=== PATIENT | female | born 1955 | race Caucasian/White ===

== ENCOUNTER → 2016-06-27 | Outpatient (CLI) | payer MEDICAID ==
--- NOTE | 2016-06-27 11:15 | ECHOS ---
DATE OF SERVICE: 06/27/2016 AGE: 60Y SEX: F HT: 65 WT: 180 lbs. Protocol Aris: X Others: Stress Echo Stage: III Dur. of Exercise: 7-1/2 minutes *Heart Rate Blood Pressure *Rest: 70 Rest: 163/85 * *Max. Achieved: 152 Maximum BP: 180/63 85% PMHR: 138 100% PMHR: 162 *METS: 9.1 INDICATIONS: Chest pain. MEDICATIONS: EKG revealed a normal sinus rhythm without significant ST-T changes. Patient walked on standard Aris protocol for 7-1/2 minutes, achieved a maximum heart rate of 152 beats, which is well above 85% of predicted maximal. She developed fatigue and shortness of breath, but did not have any anginal symptoms. EKG did not reveal any ST segment changes to indicate ischemia. By EKG criteria, this is a negative stress test with fair exercise capacity. Baseline echo images reveal normal wall motion and wall thickening of all segments. At peak exercise, there was good augmentation of left ventricular wall motion and wall thickening of all segments suggesting that there is no evidence of any stress-induced ischemia on this study. FINAL IMPRESSION: 1. Fair exercise capacity with a negative stress test by EKG criteria. 2. Normal stress echocardiogram.
== END | disposition home or self-care (01) ==
LOC: RADNMMAIN 09:26
PROVIDERS: ATTEND Family Medicine
DX: I20.9 Angina pectoris, unspecified (principal)
CPT/HCPCS: 93017; 93350

== ENCOUNTER → 2016-07-01 | Outpatient (CLI) | payer MEDICAID | END | disposition home or self-care (01) | LOC: LABWHC1 07:59 | PROVIDERS: ATTEND Allergy & Immunology | DX: L50.9 Urticaria, unspecified (principal) | CPT/HCPCS: 36415; 82784; 82785; 86376; 86800 ==

== ENCOUNTER → 2016-07-06 | Outpatient (CLI) | payer MEDICAID ==
[2016-07-26 11:45] LABS: Mis test requested (Blood) Anti IgE CD203
== END | disposition home or self-care (01) ==
LOC: LABWHC1 12:07
PROVIDERS: ATTEND Allergy & Immunology
DX: E06.3 Autoimmune thyroiditis (principal)
CPT/HCPCS: 36415; 84443

== ENCOUNTER → 2016-08-03 | Outpatient (CLI) | payer MEDICAID ==
--- NOTE | 2016-08-03 14:33 | MR ---
MR right hip HISTORY: Right hip pain Correlation to plain film second July 2016 Multiplanar multisequence imaging obtained through the pelvis with small [id number] images through the right hip Coronal T2-weighted images show suggestion of increased signal at the femoral head however this is no t correlated on additional imaging may be artifactual. Increased signal at the level of the acetabula r labrum is present, difficult to exclude a labral tear. No sizable joint effusions are present. Dege nerative disc changes are present at the lumbosacral junction loss of disc space, possible vacuum phe nomenon, marginal spurring. There is some fluid signal present at the level of the greater trochanter at the insertion site, difficult to exclude a partial tear, strain. Articular cartilage signal is th ought to be maintained. No significant hypertrophic change. IMPRESSION: Degenerative disc disease lumbosacral junction. Difficult to exclude a partial tear, stra in at the insertion of the gluteus tendon on the greater trochanter. Additional findings above.
== END | disposition home or self-care (01) ==
LOC: RADMRIMAIN 06:07
PROVIDERS: ATTEND Orthopaedic Surgery
DX: M25.551 Pain in right hip (principal)

== ENCOUNTER → 2016-08-31 | Outpatient (CLI) | payer MEDICAID ==
--- NOTE | 2016-08-31 07:52 | US ---
EXAMINATION TYPE: US thyroid st tissue head/neck DATE OF EXAM: 08/31/2016 7:14 AM COMPARISON: NONE CLINICAL HISTORY: E06.3 Autoimmune thyroiditis. GLAND SIZE: Right Lobe: 3.6 x 1.2 x 1.2 cm Overall Parenchyma: homogenous Left Lobe: 3.8 x 1.2 x 0.9 cm Overall Parenchyma: homogeneous Isthmus Thickness: 0.2 cm NODULES RIGHT: # of nodules measured on right: 0 LEFT: # of nodules measured on left: 0 ISTHMUS: # of nodules measured in the isthmus: 0 TECHNOLOGIST IMPRESSION: Bilateral neck scanned, no abnormal lymphadenopathy noted. Thyroid gland is small in size and homogeneous in echotexture without suspicious solid or cystic nodu les seen. IMPRESSION: Small size thyroid otherwise unremarkable study.
[2016-09-01 14:43] LABS: Gliadin AB IgA, Deaminated 7 UNITS (<20); Gliadin AB IgG, Deaminated 3 UNITS (<20)
[2016-09-05 10:14] LABS: Mis test requested (Blood) Celiac Genotyping
== END | disposition home or self-care (01) ==
LOC: RADUSWWP 06:41
PROVIDERS: ATTEND Allergy & Immunology
DX: E06.3 Autoimmune thyroiditis (principal)
CPT/HCPCS: 76536; 81376; 81383; 82784; 83516

== ENCOUNTER → 2016-11-09 | Outpatient (CLI) | payer MEDICAID | END | disposition home or self-care (01) | LOC: LABWHC1 06:38 | PROVIDERS: ATTEND Family Medicine | DX: E03.9 Hypothyroidism, unspecified (principal) | CPT/HCPCS: 36415; 84439; 84443 ==

== ENCOUNTER → 2017-03-15 | Outpatient (CLI) | payer MEDICAID | END | disposition home or self-care (01) | LOC: LABWHC1 06:44 | PROVIDERS: ATTEND Family Medicine | DX: E03.9 Hypothyroidism, unspecified (principal) | CPT/HCPCS: 36415; 84439; 84443 ==

== ENCOUNTER 2017-03-31 15:54 | Emergency (ER) | payer MEDICAID ==
--- NOTE | 2017-03-31 16:34 | ED ---
General Adult HPI - General Chief complaint: Shortness of Breath Stated complaint: SOB Time Seen by Provider: 03/31/17 16:06 Source: patient, RN notes reviewed Mode of arrival: wheelchair Limitations: no limitations - History of Present Illness Initial comments: 61-year-old female with no significant past medical history presents for evaluation of dyspnea. Patient states approximately 2 weeks ago she developed cough, this was dry nature. She was treated for pneumonia by her primary care physician. Cough improved, but dyspnea has not improved. She has had worsening symptoms over the past several days. Today her dyspnea significantly worsen. Denies chest pain. Denies lower extremity swelling. No recent travel. No fever, patient does state she had some chills and diaphoresis earlier in the week. Patient does have family history of coronary artery disease, she has no known history herself. Denies abdominal pain. Denies nausea vomiting or diarrhea. - Related Data Home Medications Medication Instructions Recorded Confirmed ALPRAZolam [Xanax] 0.5 mg PO DAILY PRN 03/31/17 03/31/17 Codeine Phosphate/Guaifenesin 5 ml PO Q6HR PRN 03/31/17 03/31/17 [Cheratussin AC Syrup] Levothyroxine Sodium [Synthroid] 150 mcg PO DAILY 03/31/17 03/31/17 Previous Rx's Medication Instructions Recorded Amoxicillin/Potassium Clav 1 tab PO Q12HR #14 tab 03/31/17 [Augmentin 875-125 Tablet] predniSONE 50 mg PO DAILY #5 tab 03/31/17 Allergies Allergy/AdvReac Type Severity Reaction Status Date / Time acetaminophen AdvReac SHORTNESS Verified 03/31/17 16:24 [From Darvocet-N] OF BREATHE hydrocodone AdvReac SHORTNESS Verified 03/31/17 16:24 OF BREATHE propoxyphene napsylate AdvReac SHORTNESS Verified 03/31/17 16:24 [From Darvocet-N] OF BREATHE Review of Systems ROS Statement: Those systems with pertinent positive or pertinent negative responses have been documented in the HPI. ROS Other: All systems not noted in ROS Statement are negative. Past Medical History Past Medical History: Thyroid Disorder Additional Past Medical History / Comment(s): mitral valve prolapse History of Any Multi-Drug Resistant Organisms: None Reported Past Surgical History: Appendectomy, Tubal Ligation Additional Past Surgical History / Comment(s): parotid gland tumor removed Past Psychological History: No Psychological Hx Reported Smoking Status: Never smoker Past Alcohol Use History: Occasional Past Drug Use History: None Reported General Exam Limitations: no limitations General appearance: alert, in no apparent distress Head exam: Present: atraumatic, normocephalic Eye exam: Present: normal appearance, PERRL ENT exam: Present: normal exam Neck exam: Present: normal inspection. Absent: tenderness, meningismus Respiratory exam: Present: normal lung sounds bilaterally. Absent: respiratory distress, wheezes, rales Cardiovascular Exam: Present: regular rate, normal rhythm GI/Abdominal exam: Present: soft. Absent: distended, tenderness Extremities exam: Present: normal inspection, normal capillary refill. Absent: pedal edema, calf tenderness Back exam: Present: normal inspection Neurological exam: Present: alert, oriented X3 Psychiatric exam: Present: normal affect, normal mood Skin exam: Present: warm, dry, intact. Absent: cyanosis, diaphoretic Course Vital Signs 03/31/17 03/31/17 03/31/17 15:56 17:00 18:07 Temperature 98.2 F Pulse Rate 88 75 71 Respiratory 24 16 16 Rate Blood Pressure 195/98 188/90 189/92 O2 Sat by Pulse 98 98 98 Oximetry 03/31/17 03/31/17 03/31/17 18:20 18:36 18:48 Temperature Pulse Rate 61 63 68 Respiratory Rate Blood Pressure 166/74 O2 Sat by Pulse Oximetry EKG Findings - EKG Comments: EKG Findings:: EKG shows normal sinus rhythm, ventricular rate 74, TX interval 146, QRS duration 74, QTC 457, T-wave flattening and inversion in lead 3, no ST segment elevation or depression Medical Decision Making - Lab Data Result diagrams: 03/31/17 17:01 03/31/17 17:01 Lab Results 03/31/17 03/31/17 03/31/17 Range/Units 17:01 17:01 17:01 WBC 9.9 (3.8-10.6) k/uL RBC 4.64 (3.80-5.40) m/uL Hgb 13.6 (11.4-16.0) gm/dL Hct 40.2 (34.0-46.0) % MCV 86.6 (80.0-100.0) fL MCH 29.3 (25.0-35.0) pg MCHC 33.9 (31.0-37.0) g/dL RDW 12.9 (11.5-15.5) % Plt Count 382 (150-450) k/uL Neutrophils % 61 % Lymphocytes % 26 % Monocytes % 7 % Eosinophils % 3 % Basophils % 1 % Neutrophils # 6.0 (1.3-7.7) k/uL Lymphocytes # 2.6 (1.0-4.8) k/uL Monocytes # 0.7 (0-1.0) k/uL Eosinophils # 0.3 (0-0.7) k/uL Basophils # 0.1 (0-0.2) k/uL PT (9.0-12.0) sec INR (<1.2) APTT (22.0-30.0) sec D-Dimer (<0.60) mg/L FEU Sodium 140 (137-145) mmol/L Potassium 4.2 (3.5-5.1) mmol/L Chloride 105 (98-107) mmol/L Carbon Dioxide 21 L (22-30) mmol/L Anion Gap 14 mmol/L BUN 19 H (7-17) mg/dL Creatinine 1.07 H (0.52-1.04) mg/dL Est GFR (MDRD) Af Amer >60 (>60 ml/min/1.73 sqM) Est GFR (MDRD) Non-Af 52 (>60 ml/min/1.73 sqM) Glucose 96 (74-99) mg/dL Calcium 9.1 (8.4-10.2) mg/dL Magnesium 1.8 (1.6-2.3) mg/dL Total Bilirubin 0.2 (0.2-1.3) mg/dL AST 19 (14-36) U/L ALT 26 (9-52) U/L Alkaline Phosphatase 101 (38-126) U/L Total Creatine Kinase 51 (30-135) U/L CK-MB (CK-2) 1.0 (0.0-2.4) ng/mL CK-MB (CK-2) Rel Index 2.0 Troponin I <0.012 (0.000-0.034) ng/mL NT-Pro-B Natriuret Pep pg/mL Total Protein 6.6 (6.3-8.2) g/dL Albumin 3.8 (3.5-5.0) g/dL 03/31/17 03/31/17 Range/Units 17:01 17:01 WBC (3.8-10.6) k/uL RBC (3.80-5.40) m/uL Hgb (11.4-16.0) gm/dL Hct (34.0-46.0) % MCV (80.0-100.0) fL MCH (25.0-35.0) pg MCHC (31.0-37.0) g/dL RDW (11.5-15.5) % Plt Count (150-450) k/uL Neutrophils % % Lymphocytes % % Monocytes % % Eosinophils % % Basophils % % Neutrophils # (1.3-7.7) k/uL Lymphocytes # (1.0-4.8) k/uL Monocytes # (0-1.0) k/uL Eosinophils # (0-0.7) k/uL Basophils # (0-0.2) k/uL PT 9.8 (9.0-12.0) sec INR 1.0 (<1.2) APTT 22.3 (22.0-30.0) sec D-Dimer 0.30 (<0.60) mg/L FEU Sodium (137-145) mmol/L Potassium (3.5-5.1) mmol/L Chloride (98-107) mmol/L Carbon Dioxide (22-30) mmol/L Anion Gap mmol/L BUN (7-17) mg/dL Creatinine (0.52-1.04) mg/dL Est GFR (MDRD) Af Amer (>60 ml/min/1.73 sqM) Est GFR (MDRD) Non-Af (>60 ml/min/1.73 sqM) Glucose (74-99) mg/dL Calcium (8.4-10.2) mg/dL Magnesium (1.6-2.3) mg/dL Total Bilirubin (0.2-1.3) mg/dL AST (14-36) U/L ALT (9-52) U/L Alkaline Phosphatase (38-126) U/L Total Creatine Kinase (30-135) U/L CK-MB (CK-2) (0.0-2.4) ng/mL CK-MB (CK-2) Rel Index Troponin I (0.000-0.034) ng/mL NT-Pro-B Natriuret Pep 209 pg/mL Total Protein (6.3-8.2) g/dL Albumin (3.5-5.0) g/dL Disposition Clinical Impression: Acute bronchitis Disposition: HOME SELF-CARE Condition: Good Instructions: Acute Bronchitis (ED) Prescriptions: Amoxicillin/Potassium Clav [Augmentin 875-125 Tablet] 1 tab PO Q12HR #14 tab predniSONE 50 mg PO DAILY #5 tab Referrals: Ashley Vargas MD [Primary Care Provider] - 1-2 days
[2017-03-31 17:20] LABS: Basophils # (A) 0.1 k/uL (0-0.2); Basophils % (A) 1 %; CH 29.2; CHCM 33.9; Eosinophils # (A) 0.3 k/uL (0-0.7); Eosinophils % (A) 3 %; HCT 40.2 % (34.0-46.0); HDW 2.51; HGB 13.6 gm/dL (11.4-16.0); Luc # (Auto) 0.34; Luc % (Auto) 3; Lymphocytes # (A) 2.6 k/uL (1.0-4.8); Lymphocytes % (A) 26 %; MCH 29.3 pg (25.0-35.0); MCHC 33.9 g/dL (31.0-37.0); MCV 86.6 fL (80.0-100.0); Mean Platelet Volume 6.7; Monocytes # (A) 0.7 k/uL (0-1.0); Monocytes % (A) 7 %; Neutrophils % (A) 61 %; RBC 4.64 m/uL (3.80-5.40); RDW 12.9 % (11.5-15.5); WBC 9.9 k/uL (3.8-10.6); WBC (Perox) 9.95
[2017-03-31 17:31] LABS: ALT 26 U/L (9-52); AST 19 U/L (14-36); Alkaline Phosphatase 101 U/L (38-126); Anion Gap 14 mmol/L; Blood Urea Nitrogen 19 mg/dL (7-17); Calcium 9.1 mg/dL (8.4-10.2); Carbon Dioxide 21 mmol/L (22-30); Chloride 105 mmol/L (98-107); Glucose 96 mg/dL (74-99); Magnesium 1.8 mg/dL (1.6-2.3); Non-African American GFR(MDRD) 52 (>60 ml/min/1.73 sqM); Potassium 4.2 mmol/L (3.5-5.1); Sodium 140 mmol/L (137-145); Total Bilirubin 0.2 mg/dL (0.2-1.3); Total Protein 6.6 g/dL (6.3-8.2)
--- NOTE | 2017-03-31 17:37 | XR ---
EXAMINATION TYPE: XR chest 2V DATE OF EXAM: 03/31/2017 COMPARISON: None HISTORY: 61-year-old female difficulty breathing, shortness of breath for 10 days TECHNIQUE: Frontal and lateral views FINDINGS: Heart is normal size atherosclerotic arch calcifications. Mild interstitial prominence of a chronic a ppearance. No consolidation or pleural effusion. IMPRESSION: Chronic appearing changes, possible bronchitis or chronic asthma. Otherwise, no acute process seen.
[2017-03-31 17:43] LABS: Partial Thromboplastin Time 22.3 sec (22.0-30.0); Prothrombin Time 9.8 sec (9.0-12.0)
[2017-03-31] MEDS ORDERED: SODIUM CHLORIDE 0.9% 1,000 ML IV SCH (17:45)
[2017-03-31 17:46] LABS: Creatine Kinase 51 U/L (30-135)
[2017-03-31] MEDS ORDERED: IPRATROPIUM-ALBUTEROL 3 ML NEB INHALATION STA (17:55)
[2017-03-31] MEDS ORDERED: DEXAMETHASONE SOD PHOSPHATE 10 MG/ML 1 ML VIAL IV STA (17:55)
[2017-03-31 17:58] LABS: Troponin I <0.012 ng/mL (0.000-0.034)
[2017-03-31 19:24] VITALS: BP 180/80; PULSE 84; RESP 18; TEMP 98.1
== END 2017-03-31 19:22 | disposition home or self-care (01) ==
LOC: EC 15:54
DX: J20.9 Acute bronchitis, unspecified (principal); E07.9 Disorder of thyroid, unspecified; Z79.899 Other long term (current) drug therapy; Z88.5 Allergy status to narcotic agent
CPT/HCPCS: 99285 ×2; 96374 ×2; 36415; 94640; 93005; 85379; 83880; 80053; 82550; 82553; 83735; 84484; 85025; 85610; 85730; 71020; J1100

== ENCOUNTER → 2017-06-20 | Outpatient (CLI) | payer MEDICAID ==
--- NOTE | 2017-06-21 09:35 | XR ---
EXAMINATION TYPE: XR finger RT DATE OF EXAM: 06/20/2017 COMPARISON: NONE HISTORY: Pain TECHNIQUE: Three views are submitted. FINDINGS: The osseous structures are intact. The joint spaces are preserved and there is no acute fracture or dislocation. IMPRESSION: 1. No definite acute fracture or dislocation if symptoms persist, follow-up study in 7 to 10 days wo uld be suggested
== END | disposition home or self-care (01) ==
LOC: RADXRMAIN 15:54
PROVIDERS: ATTEND Family Medicine
DX: M79.644 Pain in right finger(s) (principal)

== ENCOUNTER → 2017-11-30 | Outpatient (CLI) | payer MEDICAID ==
--- NOTE | 2017-12-04 08:42 | MM ---
Reason for exam: screening (asymptomatic). Last mammogram was performed 6 years and 3 months ago. History: Patient is postmenopausal. Family history of breast cancer in sister at age 48. Physical Findings: A clinical breast exam by your physician is recommended on an annual basis and results should be correlated with mammographic findings. MG 3D Screening Mammo W/Cad Bilateral CC and MLO view(s) were taken. Prior study comparison: August 31, 2011, bilateral digital screening mammo w/CAD. September 24, 2002, mammogram, performed at [facility]. There are scattered fibroglandular densities. No significant changes when compared with prior studies. ASSESSMENT: Negative, BI-RAD 1 RECOMMENDATION: Routine screening mammogram of both breasts in 1 year.
== END | disposition home or self-care (01) ==
LOC: RADMAMWWP 09:14
PROVIDERS: ATTEND Family Medicine
DX: Z12.31 Encounter for screening mammogram for malignant neoplasm of breast (principal)
CPT/HCPCS: 77063; 77067

== ENCOUNTER → 2018-06-28 | Outpatient (CLI) | payer MEDICAID ==
--- NOTE | 2018-06-28 08:38 | CT ---
EXAMINATION TYPE: CT sinus wo con DATE OF EXAM: 06/28/2018 COMPARISON: None HISTORY: Chronic Sinusitis CT DLP: 234 mGycm. Automated Exposure Control for Dose Reduction was Utilized. TECHNIQUE: CT scan of the sinuses is performed without contrast, axial images are obtained, coronal r eformatted images are also reviewed. FINDINGS: There is a slight nasal septal deviation there is very minimal mucosal thickening involving the maxillary sinus on the left. Mild to moderate mucosal thickening involving ethmoid air cells. Fr ontal sinus and sphenoid sinus demonstrate no significant mucosal thickening. There are no air-fluid levels. Right ostiomeatal complex is patent. Right ostiomeatal complex is occluded. Visualized portion of mastoid air cells show no abnormal opacification. The globes are intact bilate rally. IMPRESSION: 1. [id number] chronic appearing sinusitis and ethmoid air cells with occlusion of the left osti omeatal complex. 2. Minimal mucosal thickening involving the left maxillary sinus.
== END | disposition home or self-care (01) ==
LOC: RADCTMAIN 06:55
PROVIDERS: ATTEND Otolaryngology
DX: J32.2 Chronic ethmoidal sinusitis (principal); J34.89 Other specified disorders of nose and nasal sinuses
CPT/HCPCS: 70486

== ENCOUNTER 2018-09-27 09:10 | Day surgery (SDC) | payer MEDICAID ==
[2018-09-25 10:56] VITALS: BMI 32.4
[~2018-09-27 09:10] MED LIST: LACTATED RINGERS 1,000 ML IV SCH
[2018-09-27 09:43] VITALS: TEMP 97.7
[2018-09-27] MEDS ORDERED: LIDOCAINE 1% 20 ML VIAL (10MG/ML) FOR IV START INTRADERMA ONE (09:50)
[2018-09-27] MEDS ORDERED: LIDOCAINE 1% INJ 10MG/ML (20 ML MDV) ONE (10:45)
[2018-09-27] MEDS ORDERED: PROPOFOL 10 MG/ML 20 ML VIAL IV ONE (10:45)
--- NOTE | 2018-09-27 11:09 | P.PCN ---
Date of Procedure: 09/27/18 Procedure(s) Performed: Brief history: Patient is a pleasant 63-year-old white female, scheduled for an elective upper endoscopy as well as colonoscopy as a part of evaluation of GERD and screening for colorectal neoplasia. Procedure performed: Esophagogastroduodenoscopy Colonoscopy with snare polypectomy Preoperative diagnosis: GERD/ Screening for colon cancer Anesthesia: MAC Procedure: After informed consent was obtained from the patient was brought into the endoscopy unit and IV sedation was administered by anesthesia under continuous monitoring. Initially upper endoscopy was done. The Olympus GF 160 video endoscope was inserted inserted into the mouth and esophagus intubated without any difficulty and was gradually advanced into the stomach and duodenum and carefully examined. The bulb and second part of the duodenum appeared normal. The scope was then withdrawn into the stomach adequately insufflated with air and upon careful examination the antrum and body, cardia and fundus appeared normal. The scope was then withdrawn into the esophagus. The GE junction was located at 39 cm to the incisors. Small hiatal hernia noted. It appeared regular with no erythema erosions or ulcerations. Rest of the esophagus appeared normal. Patient tolerated the procedure well. At this time the patient continued to remain sedation. Initial digital rectal examination was normal. Olympus CF 160 video colonoscope was then inserted into the rectum and gradually advanced to the cecum without any difficulty. Careful examination was performed as the scope was gradually being withdrawn. The prep was excellent. The cecum appeared normal. In the ascending colon there was a 1 cm flat polyp that was removed by snare polypectomy. Rest of theascending colon, transverse colon, descending colon, sigmoid colon and rectum appeared normal. Retroflexion was performed in the rectum and no lesions were noted. Patient tolerated the procedure well. Impression: 1. Upper endoscopy revealed small hiatal hernia but no evidence of esophagitis or peptic ulcer disease 2. Colonoscopy revealed 1 cm flat ascending colon polyp status post polypectomy Recommendations: Findings of this examination were discussed with the patient as well as her family. She was advised to follow with the biopsy results. If the biopsy shows adenoma she can have a repeat colonoscopy in 3-5 years. Because of the GERD symptoms she was advised to continue with Nexium daily and follow antireflux measures.
[2018-09-27 11:13] VITALS: RESP 18
[2018-09-27 11:28] VITALS: BP 131/78; PULSE 65
== END 2018-09-27 11:47 | disposition home or self-care (01) ==
LOC: ORWHC2ENDO 09:10
PROVIDERS: ATTEND Internal Medicine Gastroenterology
DX: Z12.11 Encounter for screening for malignant neoplasm of colon (principal); K21.9 Gastro-esophageal reflux disease without esophagitis; D12.2 Benign neoplasm of ascending colon; K44.9 Diaphragmatic hernia without obstruction or gangrene; Z88.5 Allergy status to narcotic agent; Z88.8 Allergy status to other drugs, medicaments and biological substances; Z79.890 Hormone replacement therapy; Z79.899 Other long term (current) drug therapy
CPT/HCPCS: 88305; 45385; 43235; J2001; J2704

== ENCOUNTER → 2018-12-30 | Outpatient (CLI) | payer MEDICAID ==
[2018-12-30 12:25] LABS: African American GFR (CKD) 92.2 (60.0-200.0); Albumin 4.2 g/dL (3.80-4.90); Albumin/Globulin Ratio 1.83 (1.60-3.17); Anion Gap 5.8 mmol/L (4.00-12.00); BUN/Creat Ratio 26.25 Ratio (12.00-20.00); Calcium 9.1 mg/dL (8.7-10.3); Carbon Dioxide 25.2 mmol/L (21.6-31.8); Globulin 2.3 g/dL (1.6-3.3); LDL Cholesterol,Calculated 104.6 mg/dL (0.0-131.0); Potassium 4.6 mmol/L (3.5-5.5); Total Bilirubin 0.3 mg/dL (0.3-1.2); Total Protein 6.5 g/dL (6.2-8.2); VLDL Calculation 23.4 mg/dL (5.00-40.00)
== END | disposition home or self-care (01) ==
LOC: LABWHC1 06:36
PROVIDERS: ATTEND Family Medicine
DX: Z00.00 Encounter for general adult medical examination without abnormal findings (principal)
CPT/HCPCS: 36415; 80053; 80061; 84439; 84443

== ENCOUNTER 2019-08-26 15:09 | Emergency (ER) | payer MEDICAID ==
[2019-08-26] MEDS ORDERED: IBUPROFEN 800 MG TAB PO STA (15:31)
[2019-08-26] MEDS ORDERED: ACETAMINOPHEN TAB 500 MG TAB PO STA (15:32)
[2019-08-26] MEDS ORDERED: SODIUM CHLORIDE 0.9% 1,000 ML IV ONE (15:32)
--- NOTE | 2019-08-26 15:34 | ED ---
General Adult HPI - General Chief complaint: Headache Stated complaint: head & neck pain/trouble swallowing Time Seen by Provider: 08/26/19 15:15 Source: patient, RN notes reviewed, old records reviewed Mode of arrival: ambulatory Limitations: no limitations - History of Present Illness Initial comments: This is a 64-year-old female presents emergency department stating that she started with a fever 90s ago. Patient states last Sunday she was told she had influenza but she was beyond the number of days to be treated. Patient states she continues to have a fever over the weekend complains of some sore throat cough with no sputum production and a mild headache. Patient states she also has bilateral neck pain in the sternocleidomastoid muscle region. Patient denies any dysuria hematuria urinary frequency. Patient denies any abdominal pain. Patient denies any nausea vomiting. Patient denies any rashes or areas of redness. Patient denies any stiff neck. - Related Data Home Medications Medication Instructions Recorded Confirmed Levothyroxine Sodium [Synthroid] 150 mcg PO DAILY 03/31/17 09/27/18 Cannabidiol (Cbd) Extract 0 mg PO DAILY PRN 09/25/18 09/27/18 [Epidiolex] Ibuprofen [Advil] 200 mg PO Q6HR PRN 09/25/18 09/27/18 L.acidoph,Paracasei, B.lactis 1 each PO DAILY 09/25/18 09/27/18 [Probiotic] Magnesium 200 mg PO DAILY 09/25/18 09/27/18 Previous Rx's Medication Instructions Recorded Amoxicillin 500 mg PO Q8H #30 capsule 08/26/19 predniSONE [Deltasone] 40 mg PO DAILY #8 tab 08/26/19 Allergies Allergy/AdvReac Type Severity Reaction Status Date / Time hydrocodone AdvReac SHORTNESS Verified 08/26/19 15:19 OF BREATHE propoxyphene napsylate AdvReac SHORTNESS Verified 08/26/19 15:19 [From Valdo] OF BREATHE Review of Systems ROS Statement: Those systems with pertinent positive or pertinent negative responses have been documented in the HPI. ROS Other: All systems not noted in ROS Statement are negative. Past Medical History Past Medical History: GERD/Reflux, Mitral Valve Prolapse (MVP), Pneumonia, Thyroid Disorder Additional Past Medical History / Comment(s): mitral valve prolapse, hx. colon polyps, recent change in bowel habits, intermittent RLQ pain History of Any Multi-Drug Resistant Organisms: None Reported Past Surgical History: Appendectomy, Tubal Ligation Additional Past Surgical History / Comment(s): parotid gland tumor removed, colonoscopies Past Anesthesia/Blood Transfusion Reactions: No Reported Reaction, Family History of Problems w/ Anesthesia Additional Past Anesthesia/Blood Transfusion Reaction / Comment(s): 16 y.o. son had some chest pain that was attributed to anesthesia per pt. Past Psychological History: No Psychological Hx Reported Smoking Status: Never smoker Past Alcohol Use History: None Reported Past Drug Use History: None Reported - Past Family History Mother Sister(s) Family Medical History: Cancer Additional Family Medical History / Comment(s): mom colon, sister brain & breast cancer General Exam - General Exam Comments Initial Comments: GENERAL: Patient is well-developed and well-nourished. Patient is nontoxic and well-hy drated and is in no acute distress. ENT: Neck is soft and supple. No significant lymphadenopathy is noted. Oropharynx is clear. Moist mucous membranes. Neck has full range of motion without elici ting any pain. There is no thyroid enlargement and no masses were felt. EYES: The sclera were anicteric and conjunctiva were pink and moist. Extraocular movements were intact and pupils were equal round and reactive to light. Eyelids were unremarkable. PULMONARY: Unlabored respirations. Good breath sounds bilaterally. No audible rales rhonchi or wheezing was noted. CARDIOVASCULAR: There is a regular rate and rhythm without any murmurs gallops or rubs. Femoral pulses are equal bilaterally ABDOMEN: Soft and nontender with normal bowel sounds. No palpable organomegaly was noted. There is no palpable pulsatile mass. SKIN: Skin is clear with no lesions or rashes and otherwise unremarkable. NEUROLOGIC: Patient is alert and oriented x3. Cranial nerves II through XII are grossly int act. Motor and sensory are also intact. Normal speech, volume and content. Symmetrical smile. Cerebellar exam grossly intact. MUSCULOSKELETAL: Normal extremities with adequate strength and full range of motion. No lower extremity swelling or edema. No calf tenderness. LYMPHATICS: No significant lymphadenopathy is noted PSYCHIATRIC: Normal psychiatric evaluation. Normal interpersonal interactions appears functionally intact in deals appropriately with others. No signs of depression. No signs of anxiety. No delusions. No hallucinations. Limitations: no limitations Course Vital Signs 08/26/19 08/26/19 08/26/19 15:17 15:36 16:13 Temperature 100.2 F H 101.7 F H Pulse Rate 107 H Respiratory 22 22 Rate Blood Pressure 176/75 O2 Sat by Pulse 95 Oximetry 08/26/19 17:25 Temperature 100.2 F H Pulse Rate 87 Respiratory 16 Rate Blood Pressure 131/80 O2 Sat by Pulse 94 L Oximetry Medical Decision Making - Medical Decision Making Chest x-ray shows no acute abnormality. I went back into the room to reevaluate the patient she was feeling considerably better and no longer had any neck discomfort or headache. Patient received prednisone and amoxicillin emergency department. - Lab Data Result diagrams: 08/26/19 16:13 08/26/19 16:13 Lab Results 08/26/19 08/26/19 08/26/19 Range/Units 16:13 16:13 16:13 WBC 15.9 H (3.8-10.6) k/uL RBC 4.67 (3.80-5.40) m/uL Hgb 13.2 (11.4-16.0) gm/dL Hct 40.0 (34.0-46.0) % MCV 85.7 (80.0-100.0) fL MCH 28.3 (25.0-35.0) pg MCHC 33.0 (31.0-37.0) g/dL RDW 13.5 (11.5-15.5) % Plt Count 341 (150-450) k/uL Neutrophils % 84 % Lymphocytes % 8 % Monocytes % 5 % Eosinophils % 1 % Basophils % 0 % Neutrophils # 13.4 H (1.3-7.7) k/uL Lymphocytes # 1.3 (1.0-4.8) k/uL Monocytes # 0.8 (0-1.0) k/uL Eosinophils # 0.1 (0-0.7) k/uL Basophils # 0.1 (0-0.2) k/uL Sodium 134 L (137-145) mmol/L Potassium 4.1 (3.5-5.1) mmol/L Chloride 103 (98-107) mmol/L Carbon Dioxide 24 (22-30) mmol/L Anion Gap 7 mmol/L BUN 14 (7-17) mg/dL Creatinine 0.73 (0.52-1.04) mg/dL Est GFR (CKD-EPI)AfAm >90 (>60 ml/min/1.73 sqM) Est GFR (CKD-EPI)NonAf 89 (>60 ml/min/1.73 sqM) Glucose 93 (74-99) mg/dL Plasma Lactic Acid [place] (0.7-2.0) mmol/L Calcium 8.7 (8.4-10.2) mg/dL Total Bilirubin 0.7 (0.2-1.3) mg/dL AST 29 (14-36) U/L ALT 26 (4-34) U/L Alkaline Phosphatase 89 (38-126) U/L Total Protein 6.9 (6.3-8.2) g/dL Albumin 4.1 (3.5-5.0) g/dL Urine Color Yellow Urine Appearance Clear (Clear) Urine pH 7.5 (5.0-8.0) Ur Specific [place] 1.018 (1.001-1.035) Urine Protein Negative (Negative) Urine Glucose (UA) Negative (Negative) Urine Ketones Negative (Negative) Urine Blood Negative (Negative) Urine Nitrite Negative (Negative) Urine Bilirubin Negative (Negative) Urine Urobilinogen <2.0 (<2.0) mg/dL Ur Leukocyte Esterase Negative (Negative) Heterophile Antibody (Negative) Group A Strep Rapid (Negative) 08/26/19 08/26/19 08/26/19 Range/Units 16:13 16:13 17:23 WBC (3.8-10.6) k/uL RBC (3.80-5.40) m/uL Hgb (11.4-16.0) gm/dL Hct (34.0-46.0) % MCV (80.0-100.0) fL MCH (25.0-35.0) pg MCHC (31.0-37.0) g/dL RDW (11.5-15.5) % Plt Count (150-450) k/uL Neutrophils % % Lymphocytes % % Monocytes % % Eosinophils % % Basophils % % Neutrophils # (1.3-7.7) k/uL Lymphocytes # (1.0-4.8) k/uL Monocytes # (0-1.0) k/uL Eosinophils # (0-0.7) k/uL Basophils # (0-0.2) k/uL Sodium (137-145) mmol/L Potassium (3.5-5.1) mmol/L Chloride (98-107) mmol/L Carbon Dioxide (22-30) mmol/L Anion Gap mmol/L BUN (7-17) mg/dL Creatinine (0.52-1.04) mg/dL Est GFR (CKD-EPI)AfAm (>60 ml/min/1.73 sqM) Est GFR (CKD-EPI)NonAf (>60 ml/min/1.73 sqM) Glucose (74-99) mg/dL Plasma Lactic Acid [place] 0.9 (0.7-2.0) mmol/L Calcium (8.4-10.2) mg/dL Total Bilirubin (0.2-1.3) mg/dL AST (14-36) U/L ALT (4-34) U/L Alkaline Phosphatase (38-126) U/L Total Protein (6.3-8.2) g/dL Albumin (3.5-5.0) g/dL Urine Color Urine Appearance (Clear) Urine pH (5.0-8.0) Ur Specific [place] (1.001-1.035) Urine Protein (Negative) Urine Glucose (UA) (Negative) Urine Ketones (Negative) Urine Blood (Negative) Urine Nitrite (Negative) Urine Bilirubin (Negative) Urine Urobilinogen (<2.0) mg/dL Ur Leukocyte Esterase (Negative) Heterophile Antibody Negative (Negative) Group A Strep Rapid Positive A (Negative) Disposition Clinical Impression: Strep pharyngitis Disposition: HOME SELF-CARE Condition: Good Instructions (If sedation given, give patient instructions): Strep Throat (ED) Prescriptions: Amoxicillin 500 mg PO Q8H #30 capsule predniSONE [Deltasone] 40 mg PO DAILY #8 tab Is patient prescribed a controlled substance at d/c from ED?: No Referrals: Ashley Vargas MD [Primary Care Provider] - 1-2 days Time of Disposition: 17:42
[2019-08-26 16:27] LABS: Basophils # (A) 0.1 k/uL (0-0.2); Basophils % (A) 0 %; Eosinophils # (A) 0.1 k/uL (0-0.7); Eosinophils % (A) 1 %; HGB 13.2 gm/dL (11.4-16.0); Lymphocytes # (A) 1.3 k/uL (1.0-4.8); Lymphocytes % (A) 8 %; MCH 28.3 pg (25.0-35.0); MCV 85.7 fL (80.0-100.0); Mean Platelet Volume 7.3; Monocytes # (A) 0.8 k/uL (0-1.0); Monocytes % (A) 5 %; Neutrophils # (A) 13.4 k/uL (1.3-7.7); Neutrophils % (A) 84 %; Platelet Count 341 k/uL (150-450); RBC 4.67 m/uL (3.80-5.40); RDW 13.5 % (11.5-15.5); WBC 15.9 k/uL (3.8-10.6)
[2019-08-26 16:35] LABS: Appearance,Urine Clear (Clear); Bilirubin,Urine Negative (Negative); Blood,Urine Negative (Negative); Color,Urine Yellow; Glucose,Urine (UA) Negative (Negative); Ketones,Urine Negative (Negative); Leukocyte Esterase,Urine Negative (Negative); Nitrite,Urine Negative (Negative); PH, Urine 7.5 (5.0-8.0); Protein,Urine Negative (Negative); Specific Gravity,Urine 1.018 (1.001-1.035); Urobilinogen,Urine <2.0 mg/dL (<2.0)
[2019-08-26 16:47] LABS: ALT 26 U/L (4-34); AST 29 U/L (14-36); African American GFR (CKD) >90 (>60 ml/min/1.73 sqM); Albumin 4.1 g/dL (3.5-5.0); Alkaline Phosphatase 89 U/L (38-126); Anion Gap 7 mmol/L; Blood Urea Nitrogen 14 mg/dL (7-17); Calcium 8.7 mg/dL (8.4-10.2); Carbon Dioxide 24 mmol/L (22-30); Chloride 103 mmol/L (98-107); Glucose 93 mg/dL (74-99); Non-African American GFR(CKD) 89 (>60 ml/min/1.73 sqM); Potassium 4.1 mmol/L (3.5-5.1); Sodium 134 mmol/L (137-145); Total Bilirubin 0.7 mg/dL (0.2-1.3); Total Protein 6.9 g/dL (6.3-8.2)
--- NOTE | 2019-08-26 16:58 | XR ---
EXAMINATION TYPE: XR chest 2V DATE OF EXAM: 08/26/2019 COMPARISON: 03/31/2017 HISTORY: Short of breath TECHNIQUE: FINDINGS: Heart and mediastinum are normal. Lungs are clear. Diaphragm is normal. Bony thorax appears normal. There is minimal atheromatous change in the thoracic aorta. IMPRESSION: No cardiopulmonary disease. No change.
[2019-08-26 17:26] VITALS: BP 131/80; PULSE 87; RESP 16; TEMP 100.2
[2019-08-26] MEDS ORDERED: AMOXICILLIN 875 MG TAB PO STA (17:43)
[2019-08-26] MEDS ORDERED: predniSONE 50 MG TAB PO STA (17:43)
== END 2019-08-26 18:00 | disposition home or self-care (01) ==
LOC: EC 15:09
DX: J02.0 Streptococcal pharyngitis (principal); E07.9 Disorder of thyroid, unspecified; Z79.890 Hormone replacement therapy; Z88.5 Allergy status to narcotic agent; Z88.8 Allergy status to other drugs, medicaments and biological substances
CPT/HCPCS: 36415; 80053; 83605; 85025; 86308; 81003; 87040; 87430; 71046; 96360; 99284; J7512

== ENCOUNTER → 2019-11-24 | Outpatient (CLI) | payer MEDICAID | END | disposition home or self-care (01) | LOC: LABWHC1 06:55 | PROVIDERS: ATTEND Pediatrics Pediatric Infectious Diseases | DX: Z11.59 Encounter for screening for other viral diseases (principal) ==

== ENCOUNTER → 2019-11-26 | Outpatient (CLI) | payer MEDICAID | END | disposition home or self-care (01) | LOC: LABWHC1 08:20 | PROVIDERS: ATTEND Pediatrics Pediatric Infectious Diseases | DX: Z11.59 Encounter for screening for other viral diseases (principal) ==

== ENCOUNTER 2020-01-06 13:49 | Observation (INO) | payer MEDICAID ==
[2020-01-06] MEDS ORDERED: ASPIRIN 81 MG PO STA (14:42)
[2020-01-06] MEDS ORDERED: NITROGLYCERIN OINT 1 INCH/GM PACKET TOPICAL STA (14:42)
[2020-01-06] MEDS ORDERED: HEPARIN SODIUM,PORCINE 5,000 UNIT/ML 1 ML VIAL IV ONE (14:53)
--- NOTE | 2020-01-06 15:01 | ED ---
General Adult HPI - General Chief complaint: Chest Pain Stated complaint: Chest Pain Time Seen by Provider: 01/06/20 13:50 Source: patient, RN notes reviewed, old records reviewed Mode of arrival: wheelchair Limitations: no limitations - History of Present Illness Initial comments: This is a 64-year-old female presents emergency Department with a past medical history significant for high blood pressure. Patient states she also has a very strong family history she has 6 siblings all of which have had heart disease and she had a father with a heart attack at 42 and at 55 over masses are detected. Patient states today at work she had chest pain on the left side which radiated around to her scapula and down her left arm she became somewhat short of breath and it lasts approximately 5 minutes. Patient states after that she became very diaphoretic and eventually that subsided. Patient denied any recent fever chills or cough per patient denies any symptoms currently. Patient denies headache patient denies numbness weakness. Patient denies any abdominal pain patient has nausea vomiting diarrhea. - Related Data Home Medications Medication Instructions Recorded Confirmed Levothyroxine Sodium [Synthroid] 150 mcg PO DAILY 03/31/17 01/06/20 Ibuprofen [Advil] 200 - 400 mg PO Q6HR PRN 09/25/18 01/06/20 Magnesium 200 mg PO DAILY 09/25/18 01/06/20 ALPRAZolam [Xanax] 0.25 mg PO HS PRN 01/06/20 01/06/20 Allergies Allergy/AdvReac Type Severity Reaction Status Date / Time hydrocodone AdvReac SHORTNESS Verified 01/06/20 14:49 OF BREATHE propoxyphene napsylate AdvReac SHORTNESS Verified 01/06/20 14:49 [From [facility]] OF BREATHE Review of Systems ROS Statement: Those systems with pertinent positive or pertinent negative responses have been documented in the HPI. ROS Other: All systems not noted in ROS Statement are negative. Past Medical History Past Medical History: GERD/Reflux, Mitral Valve Prolapse (MVP), Pneumonia, Thyroid Disorder Additional Past Medical History / Comment(s): mitral valve prolapse, hx. colon polyps, recent change in bowel habits, intermittent RLQ pain History of Any Multi-Drug Resistant Organisms: None Reported Past Surgical History: Appendectomy, Tubal Ligation Additional Past Surgical History / Comment(s): parotid gland tumor removed, colonoscopies Past Anesthesia/Blood Transfusion Reactions: No Reported Reaction, Family History of Problems w/ Anesthesia Additional Past Anesthesia/Blood Transfusion Reaction / Comment(s): 16 y.o. son had some chest pain that was attributed to anesthesia per pt. Past Psychological History: No Psychological Hx Reported Smoking Status: Never smoker Past Alcohol Use History: Occasional Past Drug Use History: None Reported - Past Family History Mother Sister(s) Family Medical History: Cancer Additional Family Medical History / Comment(s): mom colon, sister brain & breast cancer General Exam - General Exam Comments Initial Comments: GENERAL: Patient is well-developed and well-nourished. Patient is nontoxic and well- hydrated and is in no acute distress. ENT: Neck is soft and supple. No significant lymphadenopathy is noted. Oropharynx is clear. Moist mucous membranes. Neck has full range of motion without eliciting any pain. EYES: The sclera were anicteric and conjunctiva were pink and moist. Extraocular movements were intact and pupils were equal round and reactive to light. Eyelids were unremarkable. PULMONARY: Unlabored respirations. Good breath sounds bilaterally. No audible rales rhonchi or wheezing was noted. CARDIOVASCULAR: There is a regular rate and rhythm without any murmurs gallops or rubs. ABDOMEN Soft and nontender with normal bowel sounds. SKIN: Skin is clear with no lesions or rashes and otherwise unremarkable. NEUROLOGIC: Patient is alert and oriented x3. Cranial nerves II through XII are grossly intact. Motor and sensory are also intact. Normal speech, volume and content. Symmetrical smile. MUSCULOSKELETAL: Normal extremities with adequate strength and full range of motion. No lower extremity swelling or edema. No calf tenderness. LYMPHATICS: No significant lymphadenopathy is noted PSYCHIATRIC: Normal psychiatric evaluation. Limitations: no limitations Course Vital Signs 01/06/20 01/06/20 01/06/20 13:51 13:54 14:54 Temperature 98.4 F Pulse Rate 83 79 72 Respiratory 16 16 16 Rate Blood Pressure 174/92 182/79 169/71 O2 Sat by Pulse 98 100 99 Oximetry Medical Decision Making - Medical Decision Making EKG shows normal sinus rhythm at 83 bpm TX interval 244 QRS on a 42 QT intervals 436 QTC is 512. Patient's EKG shows a left bundle branch block. Chest x-ray shows no acute abnormality. Patient was started on heparin for unstable angina. Patient remained chest pain-free any throughout her stay in the emergency department. I spoke with Dr. Stephen he agreed to admit the patient admitted the patient I continue aspirin and Nitropaste and heparin on the floor. I consult cardiology and I wrote admitting orders. - Lab Data Result diagrams: 01/06/20 14:44 01/06/20 14:44 Lab Results 01/06/20 01/06/20 01/06/20 Range/Units 14:44 14:44 14:44 WBC 8.5 (3.8-10.6) k/uL RBC 4.44 (3.80-5.40) m/uL Hgb 13.1 (11.4-16.0) gm/dL Hct 39.1 (34.0-46.0) % MCV 88.1 (80.0-100.0) fL MCH 29.6 (25.0-35.0) pg MCHC 33.6 (31.0-37.0) g/dL RDW 13.6 (11.5-15.5) % Plt Count 330 (150-450) k/uL Neutrophils % 66 % Lymphocytes % 24 % Monocytes % 5 % Eosinophils % 3 % Basophils % 0 % Neutrophils # 5.6 (1.3-7.7) k/uL Lymphocytes # 2.0 (1.0-4.8) k/uL Monocytes # 0.5 (0-1.0) k/uL Eosinophils # 0.2 (0-0.7) k/uL Basophils # 0.0 (0-0.2) k/uL PT 9.6 (9.0-12.0) sec INR 0.9 (<1.2) APTT 22.6 (22.0-30.0) sec Sodium 138 (137-145) mmol/L Potassium 4.1 (3.5-5.1) mmol/L Chloride 104 (98-107) mmol/L Carbon Dioxide 25 (22-30) mmol/L Anion Gap 9 mmol/L BUN 16 (7-17) mg/dL Creatinine 0.79 (0.52-1.04) mg/dL Est GFR (CKD-EPI)AfAm >90 (>60 ml/min/1.73 sqM) Est GFR (CKD-EPI)NonAf 81 (>60 ml/min/1.73 sqM) Glucose 106 H (74-99) mg/dL Calcium 9.4 (8.4-10.2) mg/dL Magnesium 1.8 (1.6-2.3) mg/dL Total Bilirubin 0.4 (0.2-1.3) mg/dL AST 22 (14-36) U/L ALT 16 (4-34) U/L Alkaline Phosphatase 80 (38-126) U/L Troponin I (0.000-0.034) ng/mL Total Protein 6.8 (6.3-8.2) g/dL Albumin 4.2 (3.5-5.0) g/dL 01/06/20 Range/Units 14:44 WBC (3.8-10.6) k/uL RBC (3.80-5.40) m/uL Hgb (11.4-16.0) gm/dL Hct (34.0-46.0) % MCV (80.0-100.0) fL MCH (25.0-35.0) pg MCHC (31.0-37.0) g/dL RDW (11.5-15.5) % Plt Count (150-450) k/uL Neutrophils % % Lymphocytes % % Monocytes % % Eosinophils % % Basophils % % Neutrophils # (1.3-7.7) k/uL Lymphocytes # (1.0-4.8) k/uL Monocytes # (0-1.0) k/uL Eosinophils # (0-0.7) k/uL Basophils # (0-0.2) k/uL PT (9.0-12.0) sec INR (<1.2) APTT (22.0-30.0) sec Sodium (137-145) mmol/L Potassium (3.5-5.1) mmol/L Chloride (98-107) mmol/L Carbon Dioxide (22-30) mmol/L Anion Gap mmol/L BUN (7-17) mg/dL Creatinine (0.52-1.04) mg/dL Est GFR (CKD-EPI)AfAm (>60 ml/min/1.73 sqM) Est GFR (CKD-EPI)NonAf (>60 ml/min/1.73 sqM) Glucose (74-99) mg/dL Calcium (8.4-10.2) mg/dL Magnesium (1.6-2.3) mg/dL Total Bilirubin (0.2-1.3) mg/dL AST (14-36) U/L ALT (4-34) U/L Alkaline Phosphatase (38-126) U/L Troponin I <0.012 (0.000-0.034) ng/mL Total Protein (6.3-8.2) g/dL Albumin (3.5-5.0) g/dL Critical Care Time Critical Care Time: Yes Total Critical Care Time: 35 Disposition Clinical Impression: Unstable angina pectoris Disposition: ADMITTED IP TO THIS HOSP Referrals: Ashley Vargas MD [Primary Care Provider] - 1-2 days Time of Disposition: 15:29
[2020-01-06 15:06] LABS: Basophils % (A) 0 %; Eosinophils # (A) 0.2 k/uL (0-0.7); Eosinophils % (A) 3 %; HCT 39.1 % (34.0-46.0); HGB 13.1 gm/dL (11.4-16.0); Lymphocytes % (A) 24 %; MCH 29.6 pg (25.0-35.0); MCHC 33.6 g/dL (31.0-37.0); MCV 88.1 fL (80.0-100.0); Mean Platelet Volume 7.3; Monocytes # (A) 0.5 k/uL (0-1.0); Monocytes % (A) 5 %; Neutrophils # (A) 5.6 k/uL (1.3-7.7); Neutrophils % (A) 66 %; Platelet Count 330 k/uL (150-450); RBC 4.44 m/uL (3.80-5.40); RDW 13.6 % (11.5-15.5); WBC 8.5 k/uL (3.8-10.6)
--- NOTE | 2020-01-06 15:10 | XR ---
EXAMINATION TYPE: XR chest 2V DATE OF EXAM: 01/06/2020 COMPARISON: 08/26/2019 HISTORY: 64-year-old female with chest pain TECHNIQUE: PA and lateral views FINDINGS: Heart normal size. Aorta and pulmonary vasculature within normal limits. Mild interstitial prominence is unchanged. No consolidation or pleural effusion. IMPRESSION: Chronic changes without acute cardiopulmonary process.
[2020-01-06] MEDS: HEPARIN SOD,PORK IN 0.45% NACL 25,000 UNIT in 0.45% NACL 1 250ML.BAG IV SCH (15:14)
[2020-01-06 15:16] LABS: ALT 16 U/L (4-34); AST 22 U/L (14-36); African American GFR (CKD) >90 (>60 ml/min/1.73 sqM); Albumin 4.2 g/dL (3.5-5.0); Alkaline Phosphatase 80 U/L (38-126); Anion Gap 9 mmol/L; Blood Urea Nitrogen 16 mg/dL (7-17); Calcium 9.4 mg/dL (8.4-10.2); Carbon Dioxide 25 mmol/L (22-30); Chloride 104 mmol/L (98-107); Glucose 106 mg/dL (74-99); Magnesium 1.8 mg/dL (1.6-2.3); Non-African American GFR(CKD) 81 (>60 ml/min/1.73 sqM); Potassium 4.1 mmol/L (3.5-5.1); Sodium 138 mmol/L (137-145); Total Bilirubin 0.4 mg/dL (0.2-1.3); Total Protein 6.8 g/dL (6.3-8.2)
[2020-01-06 15:20] LABS: INR 0.9 (<1.2); Partial Thromboplastin Time 22.6 sec (22.0-30.0); Prothrombin Time 9.6 sec (9.0-12.0)
[2020-01-06] MEDS ORDERED: LABETALOL 5 MG/ML VIAL MDV IVP STA (15:29)
[2020-01-06] MEDS ORDERED: NITROGLYCERIN SL TABS 0.4 MG TAB SUBLINGUAL PRN (16:08)
[2020-01-06] MEDS ORDERED: ALPRAZolam 0.25 MG TAB PO PRN ×2 (16:44→16:45)
[2020-01-06] MEDS ORDERED: IBUPROFEN 200 MG TAB PO PRN (16:44)
[2020-01-06] MEDS ORDERED: TEMAZEPAM 15 MG CAP PO PRN (16:45)
[2020-01-06] MEDS: NITROGLYCERIN OINT 1 INCH/GM PACKET TOPICAL SCH (18:21)
--- NOTE | 2020-01-06 19:36 | HP ---
HISTORY AND PHYSICAL DATE OF SERVICE: 01/06/2020 CHIEF COMPLAINT: Chest pain. HISTORY OF PRESENT ILLNESS: This 64-year-old woman with a past medical history of multiple medical problems, including history of GERD, history of mitral valve prolapse, history pneumonia, history of appendectomy, being followed by Dr. Vargas in the outpatient setting, was complaining of discomfort on the left side of the chest with some arm tingling which was radiating to the shoulder blades. The patient came to [facility] and was admitted for further evaluation and treatment. The patient had some shortness of breath. The episode lasted about 5 minutes. The patient has also been having some discomfort for the last several days, according to her. The patient previously had a stress test a few years ago which was negative. Otherwise, the patient also had siblings had heart disease and her father had a heart attack at the age of 42 and at the age of 55. There is no history of any fever, rigor or chills. No history of headache, loss of consciousness, seizures. PAST MEDICAL HISTORY: History of GERD, mitral valve prolapse, history of pneumonia, family history of premature coronary artery disease. HOME MEDICATIONS: 1. Magnesium 200 mg daily. 2. Synthroid 150 mcg p.o. daily. 3. Advil 200 to 400 q.6 p.r.n. 4. Xanax 0.25 at bedtime p.r.n. ALLERGIES: HYDROCODONE, DARVOCET. FAMILY HISTORY: Premature coronary artery disease and mom with colon cancer. Sister with brain and breast cancer. SOCIAL HISTORY: No history of smoking. No history of alcohol intake. REVIEW OF SYSTEMS: ENT: No diminished hearing. No diminished vision. CARDIOVASCULAR SYSTEM: As mentioned earlier. RESPIRATORY SYSTEM: As mentioned earlier. GI: No nausea, vomiting. : No dysuria or retention. NERVOUS SYSTEM: No numbness, weakness. ALLERGY/IMMUNOLOGY: No asthma, hayfever. MUSCULOSKELETAL: As mentioned earlier. HEMATOLOGY/ONCOLOGY: No history of anemia. ENDOCRINE: No history of diabetes, hypothyroidism. CONSTITUTIONAL: As mentioned earlier. DERMATOLOGY: Negative. RHEUMATOLOGY: Negative. PSYCHIATRY: As mentioned earlier. PHYSICAL EXAMINATION: Patient alert and oriented x3. Pulse 65, blood pressure 154/72, respiration 18, temperature 97.2, pulse ox 97% on room air. HEENT: Conjunctivae normal. NECK: No jugular venous distention. CARDIOVASCULAR SYSTEM: S1, S2 muffled. RESPIRATORY SYSTEM: Breath sounds diminished at the bases. No rhonchi. No crackles. ABDOMEN: Soft, non-tender. No mass palpable. LEGS: No edema. No swelling. NERVOUS SYSTEM: Higher functions as mentioned earlier. Moves all 4 limbs. No focal motor or sensory deficit. LYMPHATICS: No lymph node palpable in neck, axillae or groin. SKIN: No ulcer, rash, bleeding. JOINTS: No active deforming arthropathy. LABS: CBC, BMP within normal limits. EKG, personally reviewed, showed left bundle branch block. ASSESSMENT: 1. Chest pain, possible unstable angina. 2. Left bundle branch block on EKG. 3. Family history of premature coronary artery disease. 4. Gastroesophageal reflux disease. 5. Mitral valve prolapse. 6. History of pneumonia. 7. Hypothyroidism. 8. History of mitral valve prolapse. 9. History of colonic polyps. 10.History of appendectomy. 11.Obesity with body mass index of 33.3. RECOMMENDATIONS AND DISCUSSION: In this 64-year-old woman who presented with multiple medical issues, at this time I recommend to continue current medications, continue with symptomatic treatment. Resume the home medications. Rule out myocardial infarction. Possible cardiac cath per Cardiology. Guarded prognosis because of multiple complex medical issues. Further recommendations to follow. A copy of this dictation is being forwarded to Dr. Vargas, who is the primary physician. STAN / ALEXANDRA: [id number] / MTDD
[2020-01-06] MEDS ORDERED: HEPARIN SODIUM,PORCINE 5,000 UNIT/ML 1 ML VIAL IV PRN (22:03)
[2020-01-07] MEDS: NITROGLYCERIN OINT 1 INCH/GM PACKET TOPICAL SCH ×4 (00:27→18:46)
[2020-01-07 04:24] LABS: Basophils % (A) 1 %; Eosinophils # (A) 0.3 k/uL (0-0.7); Eosinophils % (A) 4 %; HCT 37.9 % (34.0-46.0); HGB 12.6 gm/dL (11.4-16.0); Lymphocytes # (A) 2.2 k/uL (1.0-4.8); Lymphocytes % (A) 32 %; MCH 29.7 pg (25.0-35.0); MCHC 33.2 g/dL (31.0-37.0); MCV 89.6 fL (80.0-100.0); Mean Platelet Volume 8.1; Monocytes # (A) 0.4 k/uL (0-1.0); Monocytes % (A) 6 %; Neutrophils # (A) 3.8 k/uL (1.3-7.7); Neutrophils % (A) 56 %; Platelet Count 302 k/uL (150-450); RBC 4.23 m/uL (3.80-5.40); RDW 13.6 % (11.5-15.5); WBC 6.9 k/uL (3.8-10.6)
[2020-01-07 06:10] LABS: African American GFR (CKD) >90 (>60 ml/min/1.73 sqM); Anion Gap 5 mmol/L; Blood Urea Nitrogen 15 mg/dL (7-17); Calcium 8.6 mg/dL (8.4-10.2); Carbon Dioxide 24 mmol/L (22-30); Chloride 110 mmol/L (98-107); Cholesterol 165 mg/dL (<200); Glucose 96 mg/dL (74-99); HDL Cholesterol 69 mg/dL (40-60); LDL Cholesterol,Calculated 78 mg/dL (0-99); Non-African American GFR(CKD) 88 (>60 ml/min/1.73 sqM); Potassium 4.3 mmol/L (3.5-5.1); Sodium 139 mmol/L (137-145); Triglycerides 92 mg/dL (<150)
[2020-01-07] MEDS: LEVOTHYROXINE 75 MCG TAB PO SCH (06:21)
[2020-01-07] MEDS: PANTOPRAZOLE 40 MG TABLET PO SCH (06:21)
[2020-01-07] MEDS: ASPIRIN 325 MG TAB PO SCH (08:54)
[2020-01-07] MEDS: MAGNESIUM OXIDE 400 MG TAB PO SCH (08:54)
--- NOTE | 2020-01-07 10:00 | ECHOF ---
Referral Reason:cp MEASUREMENTS -------- HEIGHT: 165.1 cm WEIGHT: 90.7 kg BP: RVIDd: 3.0 cm (< 3.3) IVSd: 1.3 cm (0.6 - 1.1) LVIDd: 4.9 cm (3.9 - 5.3) LVPWd: 1.1 cm (0.6 - 1.1) IVSs: 1.5 cm LVIDs: 3.8 cm LVPWs: 1.6 cm LA Diam: 4.8 cm (2.7 - 3.8) LAESV Index (A-L): 45.56 ml/m Ao Diam: 2.7 cm (2.0 - 3.7) AV Cusp: 2.2 cm (1.5 - 2.6) LA Diam: 4.1 cm (2.7 - 3.8) MV EXCURSION: 18.395 mm (> 18.000) MV EF SLOPE: 88 mm/s (70 - 150) EPSS: 0.7 cm MV E Tomi: 1.11 m/s MV DecT: 145 ms MV A Tomi: 1.03 m/s MV E/A Ratio: 1.08 RAP: 5.00 mmHg RVSP: 60.34 mmHg FINDINGS -------- Sinus rhythm. This was a technically good study. The left ventricular size is normal. Left ventricular wall thickness is normal. Overall left vent ricular systolic function is low-normal with, an EF between 50 - 55 %. The right ventricle is normal in size. The left atrium is markedly dilated. LA is severely dilated >40 ml/m2 The right atrial size is normal. The aortic valve is trileaflet, and appears structurally normal. No aortic stenosis or regurgitation. The mitral valve leaflets are mildly thickened. [id number] mitral regurgitation is present. Mild tricuspid regurgitation present. There is moderate pulmonary hypertension. The right ventric ular systolic pressure, as measured by Doppler, is 60.34mmHg. Trace/mild (physiologic) pulmonic regurgitation. The aortic root size is normal. There is no pericardial effusion. CONCLUSIONS -------- 1. Sinus rhythm. 2. This was a technically good study. 3. The left ventricular size is normal. 4. Left ventricular wall thickness is normal. 5. Overall left ventricular systolic function is low-normal with, an EF between 50 - 55 %. 6. The right ventricle is normal in size. 7. The left atrium is markedly dilated. 8. LA is severely dilated >40 ml/m2 9. The right atrial size is normal. 10. The mitral valve leaflets are mildly thickened. 11. [id number] mitral regurgitation is present. 12. Mild tricuspid regurgitation present. 13. There is moderate pulmonary hypertension. 14. The right ventricular systolic pressure, as measured by Doppler, is 60.34mmHg. 15. Trace/mild (physiologic) pulmonic regurgitation. 16. The aortic root size is normal. 17. There is no pericardial effusion. AUTOMATION OPERATOR: Ginger Hernandez RDCS
[2020-01-07] MEDS ORDERED: SODIUM CHLORIDE 0.9% 1,000 ML in EMPTY BAG 1 BAG IV ONE (10:48)
--- NOTE | 2020-01-07 10:50 | P.CRDCN ---
History of Present Illness History of present illness: HISTORY OF PRESENTING ILLNESS This is a pleasant 64-year-old female past medical history significant for hypothyroidism and hypertension although she is not currently on antihypert ensive therapy. 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 She denies prior history of coronary artery disease however her father and all of her siblings have had premature coronary artery disease. She underwent a stress echocardiogram in 2017 is negative for stress-induced ischemia. Of note at that time her EKG revealed sinus mechanism. She presented to the emergency department with symptoms of cramping in the left precordial region that wrapped around the left scapula and radiated down the left arm. It was associated with diaphoresis and mild shortness of breath. 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 According to the patient her blood pressure was over 200 systolic. On arrival to the emergency department blood pressure was 174/92. She was given a dose of IV labetalol the emergency department. EKG revealed left bundle branch block pattern. There is no old evidence of a left bundle in the past. Chest x-ray is negative for an acute cardiopulmonary process. Laboratory data reviewed, CBC unremarkable, sodium 138, potassium 4.3, creatinine 0.74, cardiac enzymes negative 3, LDL 78 and HDL 69. She currently takes no daily cardiac medications. She states her PCP has attempted lisinopril and lopressor in the past. Lisinopril caused a cough and lopressor dropped her blood pressure too much. REVIEW OF SYSTEMS At the time of my exam: CONSTITUTIONAL: Denies fever or chills. CARDIOVASCULAR: Denies chest pain, shortness of breath, orthopnea, PND or palpitations. RESPIRATORY: Denies cough. GASTROINTESTINAL: Denies abdominal pain, diarrhea, constipation, nausea or vomiting. MUSCULOSKELETAL: Denies myalgias. NEUROLOGIC: Denies numbness, tingling or weakness. ENDOCRINE: Denies fatigue, weight change, polydipsia or polyurina. GENITOURINARY: Denies burning, hematuria or urgency with micturation. HEMATOLOGIC: Denies history of anemia or bleeding. PHYSICAL EXAMINATION Blood pressure 148/81 heart rate 66 afebrile and maintaining oxygen saturation on room air. CONSTITUTIONAL: No apparent distress. HEENT: Head is normocephalic. Pupils are equal, round. Sclerae anicteric. Mucous membranes of the mouth are moist. No JVD. No carotid bruit. CHEST EXAMINATION: Lungs are clear to auscultation. No chest wall tenderness is noted on palpation or with deep breathing. HEART EXAMINATION: Regular rate and rhythm. S1, S2 heard. Systolic ejection murmur at the left sternal border, no gallops or rub. ABDOMEN: Soft, nontender. Positive bowel sounds. EXTREMITIES: 2+ peripheral pulses, no lower extremity edema and no calf tenderness. NEUROLOGIC EXAMINATION: Patient is awake, alert and oriented x3. ASSESSMENT Chest pain Left bundle branch block, new since 2017 Significant family history of premature coronary artery disease PLAN Echocardiogram being performed at the bedside during our evaluation. Mitral regurgitation appears moderate. Given her abnormal EKG, significant family history, abnormal mitral valve and symptoms we recommend proceeding with right and left cardiac catheterization to assess for underlying coronary artery disease and mitral valve. I have discussed the risks, benefits and alternative therapies for the above-mentioned procedure and for both sedation/analgesia as well as necessary blood product administration, if indicated, as they pertain to this patient. The patient has indicated understanding and acceptance of the risks and procedures discussed. Questions have been answered appropriately and she is agreeable to move forward with the above-stated procedure. Initiate losartan 25 mg daily. Further recommendations to follow based upon clinical course. Thank you kindly for this consultation. Nurse Practitioner note has been reviewed, I agree with a documented findings and plan of care. Patient was seen and examined. Past Medical History Past Medical History: GERD/Reflux, Mitral Valve Prolapse (MVP), Pneumonia, Thyroid Disorder Additional Past Medical History / Comment(s): mitral valve prolapse, hx. colon polyps, recent change in bowel habits, intermittent RLQ pain History of Any Multi-Drug Resistant Organisms: None Reported Past Surgical History: Appendectomy, Tubal Ligation Additional Past Surgical History / Comment(s): parotid gland tumor removed, colonoscopies, fallopian tubes removed, ovaries removed 2007 Past Anesthesia/Blood Transfusion Reactions: No Reported Reaction, Family History of Problems w/ Anesthesia Additional Past Anesthesia/Blood Transfusion Reaction / Comment(s): 16 y.o. son had some chest pain that was attributed to anesthesia per pt. Past Psychological History: No Psychological Hx Reported Smoking Status: Never smoker Past Alcohol Use History: Occasional Past Drug Use History: None Reported - Past Family History Mother Sister(s) Family Medical History: Cancer Additional Family Medical History / Comment(s): mom colon, sister brain & breast cancer Medications and Allergies Home Medications Medication Instructions Recorded Confirmed Type Levothyroxine Sodium [Synthroid] 150 mcg PO DAILY 03/31/17 01/06/20 History Ibuprofen [Advil] 200 - 400 mg PO Q6HR PRN 09/25/18 01/06/20 History Magnesium 200 mg PO DAILY 09/25/18 01/06/20 History ALPRAZolam [Xanax] 0.25 mg PO HS PRN 01/06/20 01/06/20 History Allergies Allergy/AdvReac Type Severity Reaction Status Date / Time hydrocodone AdvReac SHORTNESS Verified 01/06/20 14:49 OF BREATHE propoxyphene napsylate AdvReac SHORTNESS Verified 01/06/20 14:49 [facility] Physical Exam Vitals: Vital Signs Temp Pulse Pulse Resp BP BP Pulse Ox 01/07/20 06:20 158/73 01/07/20 02:15 97.8 F 73 17 137/73 94 L 01/07/20 00:25 138/74 01/06/20 20:10 97.8 F 62 18 164/84 98 01/06/20 17:35 97.7 F 68 18 159/84 97 01/06/20 16:26 97.8 F 65 18 154/72 97 01/06/20 16:00 65 157/99 97 01/06/20 15:48 71 16 162/72 97 01/06/20 15:40 64 16 194/78 96 01/06/20 14:54 72 16 169/71 99 01/06/20 13:54 79 16 182/79 100 01/06/20 13:51 98.4 F 83 16 174/92 98 Intake and Output 01/06/20 01/07/20 01/07/20 22:59 06:59 14:59 Intake Total 72.68 72.134 Balance 72.68 72.134 Intake: Intake, IV Titration 72.68 72.134 Amount Heparin Sod,Pork in 0.45% 72.68 72.134 NaCl 25,000 unit In 0.45 % NaCl 1 250ml.bag @ 11 UNITS/KG/HR 9.979 mls/hr IV .Q24H [facility] Rx#: [id number] Other: Voiding Method Toilet Toilet Weight 90.718 kg Results 01/07/20 03:38 01/07/20 03:38 Cardiac Enzymes 01/06/20 01/06/20 01/06/20 Range/Units 14:44 14:44 17:39 AST 22 (14-36) U/L Troponin I <0.012 <0.012 (0.000-0.034) ng/mL 01/06/20 Range/Units 21:14 AST (14-36) U/L Troponin I <0.012 (0.000-0.034) ng/mL Coagulation 01/06/20 01/06/20 01/07/20 Range/Units 14:44 21:14 03:38 PT 9.6 (9.0-12.0) sec APTT 22.6 36.9 H 55.8 H (22.0-30.0) sec Lipids 01/07/20 Range/Units 03:38 Triglycerides 92 (<150) mg/dL Cholesterol 165 (<200) mg/dL HDL Cholesterol 69 H (40-60) mg/dL CBC 01/06/20 01/07/20 Range/Units 14:44 03:38 WBC 8.5 6.9 (3.8-10.6) k/uL RBC 4.44 4.23 (3.80-5.40) m/uL Hgb 13.1 12.6 (11.4-16.0) gm/dL Hct 39.1 37.9 (34.0-46.0) % Plt Count 330 302 (150-450) k/uL Comprehensive Metabolic Panel 01/06/20 01/07/20 Range/Units 14:44 03:38 Sodium 138 139 (137-145) mmol/L Potassium 4.1 4.3 (3.5-5.1) mmol/L Chloride 104 110 H (98-107) mmol/L Carbon Dioxide 25 24 (22-30) mmol/L BUN 16 15 (7-17) mg/dL Creatinine 0.79 0.74 (0.52-1.04) mg/dL Glucose 106 H 96 (74-99) mg/dL Calcium 9.4 8.6 (8.4-10.2) mg/dL AST 22 (14-36) U/L ALT 16 (4-34) U/L Alkaline Phosphatase 80 (38-126) U/L Total Protein 6.8 (6.3-8.2) g/dL Albumin 4.2 (3.5-5.0) g/dL Current Medications Generic Name Dose Route Start Last Admin Trade Name Freq PRN Reason Stop Dose Admin Alprazolam 0.25 mg 01/06/20 16:44 Xanax PO HS PRN Anxiety Alprazolam 0.25 mg 01/06/20 16:45 Xanax PO TID PRN Anxiety Aspirin 325 mg 01/07/20 09:00 Aspirin PO DAILY [facility] Heparin Sodium (Porcine) 0 unit 01/06/20 22:03 01/06/20 22:32 Heparin IV 2,267 unit PER PROTOCOL PRN Administration Low PTT Protocol Heparin Sodium/Sodium Chloride 250 mls @ 9.979 mls/hr 01/06/20 15:00 01/07/20 04:38 25,000 unit/ Sodium Chloride IV 13 units/kg/hr .Q24H YAZAN 11.793 mls/hr Titration Protocol 11 UNITS/KG/HR Ibuprofen 200 mg 01/06/20 16:44 Advil PO Q6HR PRN Pain Levothyroxine Sodium 150 mcg 01/07/20 06:30 01/07/20 06:21 Synthroid PO 150 mcg DAILY@0630 YAZAN Administration Magnesium Oxide 200 mg 01/07/20 09:00 Mag-Ox PO DAILY [facility] Nitroglycerin 0.4 mg 01/06/20 16:08 Nitrostat SUBLINGUAL Q5M PRN Chest Pain Nitroglycerin 1 inch 01/06/20 18:00 01/07/20 06:22 Nitro-Bid Oint TOPICAL 1 inch Q6HR YAZAN Administration Pantoprazole Sodium 40 mg 01/07/20 07:30 01/07/20 06:21 Protonix PO 40 mg AC-[id number] [facility] Administration Temazepam 15 mg 01/06/20 16:45 Restoril PO HS PRN Insomnia Intake and Output 01/06/20 01/07/20 01/07/20 22:59 06:59 14:59 Intake Total 72.68 72.134 Balance 72.68 72.134 Intake: Intake, IV Titration 72.68 72.134 Amount Heparin Sod,Pork in 0.45% 72.68 72.134 NaCl 25,000 unit In 0.45 % NaCl 1 250ml.bag @ 11 UNITS/KG/HR 9.979 mls/hr IV .Q24H [facility] Rx#: [id number] Other: Voiding Method Toilet Toilet Weight 90.718 kg 01/07/20 03:38 01/07/20 03:38
[2020-01-07] MEDS: LOSARTAN 25 MG TAB PO SCH (12:20)
[2020-01-07] MEDS: HEPARIN SOD,PORK IN 0.45% NACL 25,000 UNIT in 0.45% NACL 1 250ML.BAG IV SCH (15:45)
--- NOTE | 2020-01-07 16:35 | PN ---
PROGRESS NOTE DATE OF SERVICE: 01/07/2020 This is a 64-year-old woman who was admitted with chest pain had possible unstable angina. The patient is scheduled to have cardiac assessment tomorrow by Cardiology. A 2D echo with Doppler was done which showed ejection fraction 50%-55% was the LA was severely dilated and moderate to severe mitral regurgitation noted as well as mild tricuspid regurgitation as well. No chest pain, no palpitation. PHYSICAL EXAMINATION: Alert and oriented x3. Pulse 66, blood pressure 140/80, respiration 18, temperature 97.8, pulse ox 98% on room. HEENT: Conjunctivae normal. NECK: No jugular venous distension. CARDIOVASCULAR: S1, S2, muffled RESPIRATION: Breath sounds diminished at the bases, no rhonchi, no crackles. ABDOMEN: Soft, nontender, no mass palpable. LEGS: No edema, no swelling. LABS: The chloride is 110. CBC within normal limits and HCT 69. ASSESSMENT: 1. Chest pain possible unstable angina. 2. Left bundle block in EKG. 3. Mitral regurgitation with LA dilatation on the 2D echo with normal ejection fraction. 4. Family history of premature coronary artery disease. 5. GERD. 6. Mitral valve prolapse history. 7. History of pneumonia. 8. History of hypothyroidism. 9. History of chronic polyps. 10.History of appendectomy. 11.History of obesity with body mass index of 33.3. 12.FULL CODE. RECOMMENDATION: In this 64-year-old woman who presented with multiple complex medical issues, will monitor the patient closely, continue with the current management and symptomatic treatment. Otherwise will follow recommendation per Cardiology. Prognosis guarded. Resume the rest of medications. Guarded prognosis. Further recommendations to follow. MMODL / IJN: [id number] /
[2020-01-08] MEDS: NITROGLYCERIN OINT 1 INCH/GM PACKET TOPICAL SCH ×3 (00:27→14:33)
[2020-01-08] MEDS ORDERED: ATORVASTATIN 80 MG TAB PO ONE (06:00)
[2020-01-08] MEDS: ASPIRIN 325 MG TAB PO SCH (06:09)
[2020-01-08] MEDS: LOSARTAN 25 MG TAB PO SCH (06:09)
[2020-01-08] MEDS: LEVOTHYROXINE 75 MCG TAB PO SCH (06:09)
[2020-01-08] MEDS: PANTOPRAZOLE 40 MG TABLET PO SCH (06:10)
[2020-01-08] MEDS: MAGNESIUM OXIDE 400 MG TAB PO SCH (06:10)
[2020-01-08 06:50] LABS: Glucose,Whole Blood 96 mg/dL (75-99)
[2020-01-08 07:18] LABS: Basophils # (A) 0.1 k/uL (0-0.2); Basophils % (A) 1 %; Eosinophils # (A) 0.3 k/uL (0-0.7); Eosinophils % (A) 5 %; HCT 41.5 % (34.0-46.0); HGB 13.6 gm/dL (11.4-16.0); Lymphocytes # (A) 1.9 k/uL (1.0-4.8); Lymphocytes % (A) 27 %; MCH 29.3 pg (25.0-35.0); MCHC 32.8 g/dL (31.0-37.0); MCV 89.3 fL (80.0-100.0); Mean Platelet Volume 7.9; Monocytes # (A) 0.3 k/uL (0-1.0); Monocytes % (A) 5 %; Neutrophils # (A) 4.3 k/uL (1.3-7.7); Neutrophils % (A) 61 %; Platelet Count 355 k/uL (150-450); RBC 4.65 m/uL (3.80-5.40); RDW 13.6 % (11.5-15.5); WBC 7.1 k/uL (3.8-10.6)
[2020-01-08] MEDS ORDERED: LIDOCAINE 1% INJ 10MG/ML (20 ML MDV) ONE ×2 (07:18→07:46)
[2020-01-08] MEDS ORDERED: IV FLUID CONTINUATION 1,000 ML IV ONE (07:35)
[2020-01-08] MEDS ORDERED: MIDAZOLAM 2 MG/2 ML VIAL IVP ONE (07:41)
[2020-01-08] MEDS ORDERED: fentaNYL (PF) 50 MCG/ML 2 ML AMP ONE (07:42)
[2020-01-08] MEDS ORDERED: fentaNYL (PF) 50 MCG/ML 2 ML AMP IVP ONE (07:43)
[2020-01-08] MEDS ORDERED: LIDOCAINE 1% INJ 10MG/ML (20 ML MDV) SQ ONE (07:44)
[2020-01-08 07:57] LABS: Calcium 8.9 mg/dL (8.4-10.2); Potassium 4.4 mmol/L (3.5-5.1)
[2020-01-08 08:11] LABS: O2 Sat Blood Gas 95.5 %
[2020-01-08 08:13] LABS: O2 Sat Blood Gas 71.8 %
[2020-01-08 08:18] LABS: O2 Sat Blood Gas 72.6 %
[2020-01-08] MEDS ORDERED: IOPAMIDOL-370 50ML BTL INJ ONE (08:19)
[2020-01-08] MEDS ORDERED: IOPAMIDOL-370 125ML BTL INJ ONE (08:26)
[2020-01-08] MEDS ORDERED: RX INFO: IV CONTRAST WAS GIVEN 1 EACH MISC MISCELLANE PRN (08:31)
[2020-01-08] MEDS ORDERED: SODIUM CHLORIDE 0.9% 1,000 ML IV SCH (08:45)
--- NOTE | 2020-01-08 08:46 | P.CARDCATH ---
Date of Procedure: 01/08/20 Preoperative Diagnosis: This is a 64-year-old female with history of hypertension and also mitral regurgitation and strong family history of ischemic heart disease is admitted to the hospital with recurrent chest pains. Her EKG showed a new left bundle- branch block pattern. An echocardiogram showed evidence of moderate to severe mitral regurgitation. Patient is advised to have a cardiac catheterization for definitive diagnosis. Patient was explained the risks and benefits of the procedure Postoperative Diagnosis: Normal coronary arteries. Normal LV function. Moderate mitral regurgitation. Moderate pulmonary hypertension. Diastolic dysfunction Operative Findings: HISTORY: This is a 64-year-old female with history of hypertension and mitral regurgitation is admitted to the hospital with chest pain and new lead detected a left bundle-branch block. Echo Cardizem showed moderate to severe mitral regurgitation. Patient is advised to have cardiac catheterization for definitive diagnosis CONSENT:I have discussed the risks, benefits and alternative therapies for the above-mentioned procedure and for both sedation/analgesia as well as necessary blood product administration, if indicated, as they pertain to this patient. The patient has indicated understanding and acceptance of the risks and procedures discussed. PROCEDURE: Patient was brought to the lab in a fasting state. Patient was given some IV sedation. The right groin is infiltrated with lidocaine . Right heart catheterization: This was performed from the right femoral approach. The right femoral vein was entered using Seldinger technique and a 7-[place]izen [place] sheath was left in place. A 6-[place]-Kathy catheter was used for right heart catheterization. Patient tolerated procedure well. Hemostasis was obtained with manual compression. Left heart catheterization: Right femoral artery was entered using Seldinger technique. A 6-Citizen [place] catheter was left in place and selective coronary arteriography and left ventriculography was performed. Patient tolerated the procedure well. Femoral angiogram was performed and Angio-Seal was applied for hemostasis. No immediate complications were noted and patient was transferred to [facility] in a stable condition Conscious Sedation: Versed 1mg Fentanyl 50 g Duration 41minutes HEMODYNAMICS: Aortic pressure is about 160/80. Left ventricle end-diastolic pressure is about 20. There was no gradient across the aortic valve. The right atrial pressure is about 5, right ventricular pressure is about 40/5, pulmonary artery pressure is about 40/20, the pulmonary wedge pressure is about 15 with a V-wave of 25-30. The cardiac output by thermodilution method is 5.17 and by Walter method 4.75. Oxygen saturation is a 71.8, right atrium 72.6 and the pulmonary artery and 95.5 from the right femoral artery SELECTIVE CORONARY ARTERIOGRAPHY: LEFT MAIN: Normal length and less than occlusive disease THE LEFT ANTERIOR DESCENDING CORONARY ARTERY:. Moderate caliber vessel giving rise to small septal and diagonal branches are free of any occlusive disease THE LEFT CIRCUMFLEX AND IS CORONARY ARTERY: Moderate caliber vessel giving rise to good-sized OM branch. THE RIGHT CORONARY ARTERY: Codominant vessel. A moderate in caliber, free of occlusive disease LEFT VENTRICULOGRAPHY:. This revealed normal-sized cardiac silhouette with good systolic function. The end-diastolic pressure is elevated size to diastolic dysfunction FINAL IMPRESSION: #1. Normal coronary arteries #2. Diastolic dysfunction #3. Moderate mitral regurgitation #4. Moderate pulmonary hypertension PLAN:. Continue medical therapy and risk factor modification PROGNOSIS: Guarded
[2020-01-08] MEDS ORDERED: FUROSEMIDE 10 MG/ML 2 ML VIAL IV ONE (08:53)
[2020-01-08] MEDS ORDERED: LOSARTAN 50 MG TAB PO SCH (09:00)
[2020-01-08] MEDS ORDERED: hydroCHLOROthiazide 12.5 MG CAP PO SCH (09:00)
[2020-01-08] MEDS ORDERED: amLODIPine 2.5 MG TAB PO SCH (09:00)
[2020-01-08 10:54] VITALS: RESP 14
[2020-01-08 15:00] VITALS: BP 137/79; PULSE 69; TEMP 97.8
--- NOTE | 2020-01-09 04:39 | DS ---
DISCHARGE SUMMARY FINAL DIAGNOSES: 1. Chest pain, possibly musculoskeletal. 2. Negative cardiac catheterization. 3. Left bundle branch block on EKG. 4. Mitral regurgitation with LA dilatation on 2-D echo with normal ejection fraction. 5. Family history of premature coronary artery disease. 6. Gastroesophageal reflux disease. 7. Mitral valve prolapse history. 8. History of pneumonia. 9. History of hypothyroidism. 10.History of colonic polyps. 11.History of appendectomy. 12.History of obesity with body mass index of 33.3. 13.FULL CODE. DISCHARGE DISPOSITION: The patient will be discharged in stable condition with guarded prognosis. Discharge cleared by Cardiology. HISTORY OF PRESENT ILLNESS: This 64-year-old woman with a past medical history of multiple medical problems followed by Dr. Vargas in the outpatient setting admitted with chest pain. Myocardial infarction ruled out. The patient had history of premature coronary artery disease. Patient had cardiac catheterization which showed normal coronaries. Patient was treated medically. Medications were adjusted. On exam, vitals are stable. CARDIOVASCULAR: S1, S2 normal. ABDOMEN: Soft. NERVOUS SYSTEM: No focal deficits. DISCHARGE ADVICE: 1. Diet is cardiac. 2. Activity limited until followup. 3. Follow up with Dr. Vargas in 2 to 3 days. 4. Follow up with Dr. Espinoza in 1 week. Medications are: 1. Advil p.r.n. 2. Magnesium 200 mg p.o. daily. 3. Synthroid 150 mcg p.o. daily. 4. Xanax 0.25 at bedtime. 5. Cozaar 50 mg p.o. daily. 6. Ecotrin 81 mg p.o. daily. 7. HydroDIURIL 12.5 mg p.o. daily. 8. Norvasc 2.5 mg daily. Medications to be adjusted in the outpatient setting. Once again the patient will be discharged in stable condition with guarded prognosis. MMODL / IJN: [id number] /
== END 2020-01-08 17:25 | disposition home or self-care (01) ==
LOC: EC 13:49 → 3NCARDOBS 16:09
PROVIDERS: ADMIT Hospitalist; ATTEND Hospitalist
DX: R07.89 Other chest pain (principal); E03.9 Hypothyroidism, unspecified; E66.9 Obesity, unspecified; I10 Essential (primary) hypertension; I25.10 Atherosclerotic heart disease of native coronary artery without angina pectoris; Z03.818 Encounter for observation for suspected exposure to other biological agents ruled out; I34.0 Nonrheumatic mitral (valve) insufficiency; I34.1 Nonrheumatic mitral (valve) prolapse; I44.7 Left bundle-branch block, unspecified; K21.9 Gastro-esophageal reflux disease without esophagitis; Z68.33 Body mass index [BMI] 33.0-33.9, adult; Z79.890 Hormone replacement therapy; Z80.0 Family history of malignant neoplasm of digestive organs; Z80.3 Family history of malignant neoplasm of breast; Z82.49 Family history of ischemic heart disease and other diseases of the circulatory system; Z87.01 Personal history of pneumonia (recurrent); Z87.19 Personal history of other diseases of the digestive system; Z90.49 Acquired absence of other specified parts of digestive tract; Z79.899 Other long term (current) drug therapy; Z88.5 Allergy status to narcotic agent
CPT/HCPCS: 93005 ×3; 96366 ×3; 96376 ×2; 96365; 96375; 99291; 36415; 93306; 93453; 80061; 80053; 80048 ×2; 85018; 82810; 83735; 84484; 85025 ×3; 85610; 85730 ×3; 71046; G0378 ×3; C1769 ×3; C1760; C1894 ×2; U0003; J2250; J1644 ×3; J1940; J2001; J3010; Q9967 ×2

== ENCOUNTER → 2020-05-21 | Outpatient (CLI) | payer MEDICAID ==
--- NOTE | 2020-05-21 16:27 | XR ---
EXAMINATION TYPE: XR chest 2V DATE OF EXAM: 05/21/2020 COMPARISON: R chest x-ray 01/06/2020 HISTORY: Pleurodynia, rib pain TECHNIQUE: Frontal and lateral views of the chest are obtained. FINDINGS: There is no focal air space opacity, pleural effusion, or pneumothorax seen. The cardiac silhouette size is within normal limits. There is eventration elevation of right hemidiaphragm as on prior. Aorta is dense. The osseous structures are intact. IMPRESSION: No acute cardiopulmonary process.
== END | disposition home or self-care (01) ==
LOC: RADXRMAIN 14:23
PROVIDERS: ATTEND Family Medicine
DX: R07.81 Pleurodynia (principal)
CPT/HCPCS: 71046

== ENCOUNTER → 2020-07-30 | Outpatient (CLI) | payer MEDICAID ==
--- NOTE | 2020-07-30 09:39 | XR ---
EXAMINATION TYPE: XR wrist complete LT DATE OF EXAM: 07/30/2020 COMPARISON: NONE HISTORY: Pain TECHNIQUE: Four views submitted. FINDINGS: The osseous structures are intact. The joint spaces are preserved and there is no acute fracture or dislocation. IMPRESSION: 1. No definite acute fracture or dislocation if symptoms persist, follow-up study in 7 to 10 days wo uld be suggested
== END | disposition home or self-care (01) ==
LOC: RADXRMAIN 07:27
PROVIDERS: ATTEND Family Medicine
DX: M25.532 Pain in left wrist (principal)

== ENCOUNTER → 2021-02-07 | Outpatient (CLI) | payer MEDICAID | END | disposition home or self-care (01) | LOC: LABWHC1 14:05 | PROVIDERS: ATTEND Emergency Medicine | DX: Z20.822 Contact with and (suspected) exposure to COVID-19 (principal) | CPT/HCPCS: 87635; C9803 ==

== ENCOUNTER → 2021-02-08 | Outpatient (CLI) | payer MEDICAID | END | disposition home or self-care (01) | LOC: LABWHC1 14:20 | PROVIDERS: ATTEND Emergency Medicine | DX: Z20.822 Contact with and (suspected) exposure to COVID-19 (principal) | CPT/HCPCS: 87635; C9803 ==

== ENCOUNTER → 2021-03-13 | Outpatient (CLI) | payer MEDICAID, OTHER | END | disposition home or self-care (01) | LOC: LABWHC1 09:57 | PROVIDERS: ATTEND Emergency Medicine | DX: Z53.9 Procedure and treatment not carried out, unspecified reason (principal) ==

== ENCOUNTER → 2021-03-14 | Outpatient (CLI) | payer MEDICAID, OTHER | END | disposition home or self-care (01) | LOC: LABWHC1 10:29 | PROVIDERS: ATTEND Emergency Medicine | DX: Z20.822 Contact with and (suspected) exposure to COVID-19 (principal) | CPT/HCPCS: 87635 ==

== ENCOUNTER → 2021-03-25 | Outpatient (CLI) | payer MEDICAID ==
[2021-03-25 15:02] LABS: Basophils % (A) 1.4 %; Eosinophils # (A) 0.36 X 10*3/uL (0.04-0.35); HCT 39.9 % (37.2-46.3); HGB 12.6 g/dL (12.0-15.0); Lymphocytes # (A) 1.75 X 10*3/uL (0.90-5.00); Lymphocytes % (A) 24.5 %; MCH 27.8 pg (27.0-32.0); MCHC 31.6 g/dL (32.0-37.0); MCV 88.1 fL (80.0-97.0); Mean Platelet Volume 10.2 fL (9.5-12.2); Monocytes # (A) 0.53 X 10*3/uL (0.20-1.00); Monocytes % (A) 7.4 %; Neutrophils # (A) 4.38 X 10*3/uL (1.80-7.70); Neutrophils % (A) 61.3 %; Platelet Count 351 X 10*3/uL (140-440); RBC 4.53 X 10*6/uL (4.10-5.20); RDW 13.8 % (11.5-14.5); WBC 7.15 X 10*3/uL (4.50-10.00)
[2021-03-25 18:16] LABS: African American GFR (CKD) 98.3 (60.0-200.0); Albumin 4.1 g/dL (3.8-4.9); Albumin/Globulin Ratio 1.81 (1.60-3.17); Anion Gap 10.7 mmol/L (4.00-12.00); BUN/Creat Ratio 21.47 Ratio (12.00-20.00); Blood Urea Nitrogen 16.1 mg/dL (9.0-27.0); Carbon Dioxide 23.1 mmol/L (21.6-31.8); Chol/HDL Ratio 2.91 Ratio; Globulin 2.3 g/dL (1.6-3.3); HDL Cholesterol 59.1 mg/dL (40.00-60.00); LDL Cholesterol,Calculated 93.9 mg/dL (0.0-131.0); Non-African American GFR(CKD) 84.8 (60.0-200.0); Potassium 4.4 mmol/L (3.5-5.5); T4, Free (Free Thyroxine) 1.61 ng/dL (0.800-1.800); Total Bilirubin 0.4 mg/dL (0.30-1.20); Total Protein 6.4 g/dL (6.2-8.2); Triglycerides 94.8 mg/dL (0.00-149.00); VLDL Calculation 18.96 mg/dL (5.00-40.00)
== END | disposition home or self-care (01) ==
LOC: LABWHC1 08:14
PROVIDERS: ATTEND Family Medicine
DX: I10 Essential (primary) hypertension (principal); E03.9 Hypothyroidism, unspecified; F32.9 Major depressive disorder, single episode, unspecified; R53.83 Other fatigue
CPT/HCPCS: 36415; 80053; 80061; 82306; 84439; 84443; 85025

== ENCOUNTER → 2021-05-11 | Outpatient (CLI) | payer MEDICAID, OTHER | END | disposition home or self-care (01) | LOC: LABWHC1 14:22 | PROVIDERS: ATTEND Emergency Medicine | DX: Z20.822 Contact with and (suspected) exposure to COVID-19 (principal) | CPT/HCPCS: 87635 ==

== ENCOUNTER → 2021-05-14 | Outpatient (CLI) | payer MEDICAID, OTHER | END | disposition home or self-care (01) | LOC: LABWHC1 09:20 | PROVIDERS: ATTEND Emergency Medicine | DX: Z20.822 Contact with and (suspected) exposure to COVID-19 (principal) | CPT/HCPCS: 87635 ==

== ENCOUNTER → 2021-09-09 | Outpatient (CLI) | payer MEDICAID ==
[2021-09-09 14:12] LABS: Basophils # (A) 0.07 X 10*3/uL (0.00-0.10); Basophils % (A) 0.9 %; Eosinophils # (A) 0.18 X 10*3/uL (0.04-0.35); Eosinophils % (A) 2.3 %; HCT 44.2 % (37.2-46.3); HGB 14.1 g/dL (12.0-15.0); Immature Grans, Automated 0.4 %; Lymphocytes # (A) 1.84 X 10*3/uL (0.90-5.00); Lymphocytes % (A) 23.3 %; MCH 28.2 pg (27.0-32.0); MCHC 31.9 g/dL (32.0-37.0); MCV 88.4 fL (80.0-97.0); Mean Platelet Volume 10.2 fL (9.5-12.2); Monocytes # (A) 0.62 X 10*3/uL (0.20-1.00); Monocytes % (A) 7.9 %; NRBC Per 100 WBC 0 /100 WBCS (0.0-0.0); Neutrophils # (A) 5.15 X 10*3/uL (1.80-7.70); Neutrophils % (A) 65.2 %; Platelet Count 425 X 10*3/uL (140-440); RDW 13.8 % (11.5-14.5); WBC 7.89 X 10*3/uL (4.50-10.00)
[2021-09-09 14:49] LABS: ALT 21 U/L (8-44); AST 17 U/L (13-35); African American GFR (CKD) 79.2 (60.0-200.0); Albumin 4.6 g/dL (3.8-4.9); Albumin/Globulin Ratio 1.74 (1.60-3.17); Alkaline Phosphatase 86 U/L (41-126); BUN/Creat Ratio 19.84 Ratio (12.00-20.00); Blood Urea Nitrogen 17.7 mg/dL (9.0-27.0); Calcium 9.7 mg/dL (8.7-10.3); Carbon Dioxide 24.5 mmol/L (20.0-27.5); Chloride 102 mmol/L (96-109); Chol/HDL Ratio 3.21 Ratio; Globulin 2.7 g/dL (1.6-3.3); Glucose 93 mg/dL (70-110); LDL Cholesterol,Calculated 106.1 mg/dL (0.0-131.0); Non-African American GFR(CKD) 68.3 (60.0-200.0); Potassium 4.4 mmol/L (3.5-5.5); Sodium 141 mmol/L (135-145); Total Protein 7.3 g/dL (6.2-8.2)
--- NOTE | 2021-09-13 10:53 | MM ---
Reason for exam: screening (asymptomatic). Last mammogram was performed 3 years and 9 months ago. History: Patient is postmenopausal. Family history of breast cancer in sister at age 48. Physical Findings: A clinical breast exam by your physician is recommended on an annual basis and results should be correlated with mammographic findings. MG 3D Screening Mammo W/Cad Bilateral CC and MLO view(s) were taken. Prior study comparison: November 30, 2017, bilateral MG 3d screening mammo w/cad. There are scattered fibroglandular densities. There is no discrete abnormality. ASSESSMENT: Negative, BI-RAD 1 RECOMMENDATION: Routine screening mammogram of both breasts in 1 year.
== END | disposition home or self-care (01) ==
LOC: RADMAMWWP 09:51
PROVIDERS: ATTEND Family Medicine
DX: Z00.00 Encounter for general adult medical examination without abnormal findings (principal); Z12.31 Encounter for screening mammogram for malignant neoplasm of breast; E03.9 Hypothyroidism, unspecified; Z78.0 Asymptomatic menopausal state; Z80.3 Family history of malignant neoplasm of breast
CPT/HCPCS: 36415; 77063; 77067; 80053; 80061; 84439; 84443; 85025

== ENCOUNTER → 2021-09-27 | Outpatient (CLI) | payer MEDICAID ==
--- NOTE | 2021-09-27 09:43 | XR ---
EXAMINATION TYPE: XR chest 2V DATE OF EXAM: 09/27/2021 COMPARISON: 05/21/2020 TECHNIQUE: PA and lateral views submitted. HISTORY: Shortness of breath FINDINGS: The lungs are clear and there is no pneumothorax, pleural effusion, or focal pneumonia. Biapical pl eural thickening. Arthropathy of the shoulders. Atherosclerotic change of the aorta. IMPRESSION: 1. No acute process.
== END ==
LOC: RADXRMAIN 09:18
PROVIDERS: ATTEND Internal Medicine Cardiovascular Disease
DX: I50.9 Heart failure, unspecified (principal); R05.9 Cough, unspecified
CPT/HCPCS: 71046; 83880

== ENCOUNTER 2021-10-04 07:28 | Day surgery (SDC) | payer MEDICAID ==
[2021-09-30 12:52] VITALS: BMI 34.7
[~2021-10-04 07:28] MED LIST changes: +LIDOCAINE 1% (10MG/ML) FOR IV START INTRADERMA PRN
[2021-10-04 08:09] VITALS: RESP 18; TEMP 98.8
[2021-10-04] MEDS ORDERED: SODIUM CHLORIDE 0.9% 1,000 ML IV ONE (08:09)
[2021-10-04] MEDS ORDERED: BENZOCAINE SPRAY 1 CAN MUCOUS MEM ONE (08:57)
[2021-10-04] MEDS ORDERED: LIDOCAINE 1% INJ 10MG/ML (20 ML MDV) ONE (09:00)
[2021-10-04] MEDS ORDERED: PROPOFOL 10 MG/ML 20 ML VIAL IV ONE (09:00)
[2021-10-04] MEDS ORDERED: SODIUM CHLORIDE 0.9% 1,000 ML IV SCH (09:45)
[2021-10-04 10:16] VITALS: BP 151/72; PULSE 64
--- NOTE | 2021-10-04 10:28 | P.TEE ---
Indications for Procedure(s): Assessment mitral regurgitation Date of Procedure: 10/04/21 Preoperative Diagnosis: Shortness of breath, mitral regurgitation Postoperative Diagnosis: 3+ mitral regurgitation which is central Procedure(s) Performed: ESCOBAR under brief general anesthesia Description of Procedure(s): INDICATION: 66-year-old female with history of mitral regurgitation has been experiencing exertional shortness of breath. Transthoracic echo is consistent with moderate to severe mitral regurgitation is advised to have ESCOBAR examination for further evaluation CONSENT: . Informed consent was obtained from the patient PROCEDURE: Patient was brought to the lab in a fasting state. She was prepped and draped in the usual fashion. Department of anesthesia provided brief general anesthesia. The throat was sprayed with Cetacaine. A lubricated Omni probe was introduced in the oropharynx and was advanced into the esophagus and stomach. Multiple views were obtained. Color, pulsed and continuous flow Doppler studies were done. Saline contrast bubble injection is performed. Patient tolerated the procedure well FINDINGS: . The aortic valve is tricuspid and function normally with trace regurgitation. The mitral valve structurally appear to be normal without any definite prolapse or ruptured. There is at central mitral regurgitation with a PISA value of about 0.7. There appears to be reversal of flow in the left upper pulmonary vein. The left atrial appendage free of any clot. The Taxol appeared to be normal with mild regurgitation. The interatrial septum is intact without any shunt. Saline contrast bubble injection did not show any shunting of bubbles. Left atrial appendage is free of any clot. There is biatrial enlargement, left atrium appeared to be more so. The left ventricle function appeared to be normal. Aorta showed minimal plaque IMPRESSION: #1. Moderate to severe mitral regurgitation which appears to be about 3+. There is reversal of flow in the left upper pulmonary vein. #2. Trace aortic regurgitation. #3. No clot in the left atrial appendage. #4. No PFO #5. Left atrial enlargement. #6. Preserved LV function PLAN: Continue medical therapy. Possible mitral valve repair
== END 2021-10-04 10:23 | disposition home or self-care (01) ==
LOC: CATHCVL 07:28
PROVIDERS: ATTEND Internal Medicine Cardiovascular Disease
DX: I34.0 Nonrheumatic mitral (valve) insufficiency (principal); I10 Essential (primary) hypertension; Z82.49 Family history of ischemic heart disease and other diseases of the circulatory system; Z88.5 Allergy status to narcotic agent; E03.9 Hypothyroidism, unspecified; Z20.822 Contact with and (suspected) exposure to COVID-19; Z79.890 Hormone replacement therapy; Z79.899 Other long term (current) drug therapy
CPT/HCPCS: 93312; 93320; 93325; 87635; J2001; J2704

== ENCOUNTER 2021-10-14 06:45 | Day surgery (SDC) | payer MEDICAID ==
[2021-10-12 12:26] VITALS: BMI 33.6
[~2021-10-14 06:45] MED LIST changes: -LIDOCAINE 1% (10MG/ML) FOR IV START INTRADERMA PRN
[2021-10-14 07:14] VITALS: TEMP 97.2
[2021-10-14] MEDS ORDERED: LIDOCAINE 2% INJ 20 MG/ML (2 ML VIAL) ONE (07:51)
[2021-10-14] MEDS ORDERED: PROPOFOL 10 MG/ML 20 ML VIAL IV ONE (07:51)
--- NOTE | 2021-10-14 08:08 | P.PCN ---
Date of Procedure: 10/14/21 Procedure(s) Performed: Brief history: Patient is a pleasant 66-year-old pleasant white female scheduled for an elective upper endoscopy as well as colonoscopy as a part of evaluation of GERD/intermittent nausea vomiting and change in bowel habits for the last 1 year duration. She also has prior history of colon polyps. Procedure performed: Esophagogastroduodenoscopy with biopsy Colonoscopy Preoperative diagnosis: GERD/intermittent nausea vomiting Change in bowel habits and history of colon polyps Anesthesia: MAC Procedure: After informed consent was obtained from the patient was brought into the endoscopy unit and IV sedation was administered by anesthesia under continuous monitoring. Initially upper endoscopy was done. The Olympus GF 160 video endoscope was inserted inserted into the mouth and esophagus intubated without any difficulty and was gradually advanced into the stomach and duodenum and carefully examined. The bulb and second part of the duodenum appeared normal. Abscesses were done from the duodenum to rule out celiac disease. The scope was then withdrawn into the stomach adequately insufflated with air and upon careful examination the antrum and mild antral gastritis and biopsies were done from this area. The body, cardia and fundus appeared normal. The scope was then withdrawn into the esophagus. The GE junction was located at 40 cm to the incisors. It appeared regular with no erythema erosions or ulcerations. Rest of the esophagus appeared normal. Patient tolerated the procedure well. At this time the patient continued to remain sedation. Initial digital rectal examination was normal. Olympus CF 160 video colonoscope was then inserted into the rectum and gradually advanced to the cecum without any difficulty. Careful examination was performed as the scope was gradually being withdrawn. The prep was excellent. The cecum, ascending colon, transverse colon, descending colon, sigmoid colon and rectum appeared normal. Retroflexion was performed in the rectum and no lesions were noted. Patient tolerated the procedure well. Impression: 1. Upper endoscopy revealed small hiatal hernia and mild antral gastritis 2. colonoscopy was within normal limits with no evidence of colitis or colorectal neoplasia Recommendations: Findings of this examination were discussed with the patient as well as her family. She was advised to follow with the biopsy results. She can have a repeat screening colonoscopy in 5 years.
[2021-10-14 08:43] VITALS: BP 141/61; PULSE 60; RESP 17
== END 2021-10-14 08:50 | disposition home or self-care (01) ==
LOC: ORWHC2ENDO 06:45
PROVIDERS: ATTEND Internal Medicine Gastroenterology
DX: K21.9 Gastro-esophageal reflux disease without esophagitis (principal); K29.50 Unspecified chronic gastritis without bleeding; K44.9 Diaphragmatic hernia without obstruction or gangrene; R19.4 Change in bowel habit; Z86.010 Personal history of colon polyps; I34.1 Nonrheumatic mitral (valve) prolapse; I34.0 Nonrheumatic mitral (valve) insufficiency; E07.9 Disorder of thyroid, unspecified; Z79.890 Hormone replacement therapy; Z79.899 Other long term (current) drug therapy; Z88.8 Allergy status to other drugs, medicaments and biological substances; Z91.048 Other nonmedicinal substance allergy status; Z90.49 Acquired absence of other specified parts of digestive tract; Z98.51 Tubal ligation status; Z98.890 Other specified postprocedural states
CPT/HCPCS: 88305; 45378; 43239; J2704; J2001

== ENCOUNTER → 2021-11-08 | Outpatient (CLI) | payer MEDICAID ==
[2021-11-08 11:17] LABS: INR 0.9 (<1.2); Partial Thromboplastin Time 22.6 sec (22.0-30.0); Prothrombin Time 9.7 sec (9.0-12.0)
--- NOTE | 2021-11-08 11:40 | P.PN ---
Progress Note - Text Progress Note Date: 11/08/21 A 5 m walk test was completed with the patient, time 1: 1.93 seconds, time 2: 1.75 seconds, time 3: 2.07 seconds. An STS risk score was calculated in discussed with the patient.
--- NOTE | 2021-11-08 13:07 | US ---
EXAMINATION TYPE: US carotid duplex BILAT DATE OF EXAM: 11/08/2021 COMPARISON: NONE CLINICAL HISTORY: OPEN HEART, PRE OP SURGERY. mitral valve replacement, no h/o stroke EXAM MEASUREMENTS: RIGHT: Peak Systolic Velocity (PSV) cm/sec ----- Right CCA: 67.7 ----- Right ICA: 104.4 ----- Right ECA: 98.2 ICA/CCA ratio: 1.5 RIGHT: End Diastole cm/sec ----- Right CCA: 22.3 ----- Right ICA: 35.8 ----- Right ECA: 5.8 LEFT: Peak Systolic Velocity (PSV) cm/sec ----- Left CCA: 82.3 ----- Left ICA: 149.1 ----- Left ECA: 68.6 ICA/CCA ratio: 1.8 LEFT: End Diastole cm/sec ----- Left CCA: 21.2 ----- Left ICA: 47.3 ----- Left ECA: 14.5 VERTEBRALS (direction of flow): Right Vertebral: Antegrade Left Vertebral: Antegrade Rhythm: Normal Mild heterogeneous plaque bilateral bulbs with no significant stenosis seen Grayscale, color Doppler, spectral Doppler imaging performed of the carotid arteries. Waveform analys is does not show significant stenosis of the internal carotid arteries. IMPRESSION: No hemodynamic significant stenosis of the proximal internal carotid arteries by Doppler criteria, an indirect measurement of carotid stenosis. Mild elevation of peak systolic velocity note d in the left internal carotid artery on the left without elevated ICA to CCA ratio, consider follow- up Criteria for Assigning % of Stenosis / Diameter reduction (Estimation based on the indirect measurements of the internal carotid artery velocities (ICA PSV). 1. Normal (no stenosis)=ICA PSV < 125 cm/s: ratio < 2.0: ICA EDV<40 cm/s. 2. Less than 50% stenosis=ICA PSV < 125 cm/s: ratio < 2.0: ICA EDV<40 cm/s. 3. 50 to 69% stenosis=ICA PSV of 125 to 230 cm/s: ration 2.0 ? 4.0: ICA EDV 40-100 cm/s. 4. Greater than 70% stenosis to near occlusion= ICA PSV > 230 cm/s: ratio > 4.0: ICA EDV > 100 cm/s. 5. Near occlusion= ICA PSV velocities may be low or undetectable: variable ratio and ICA EDV. 6. Total occlusion=unable to detect flow.
--- NOTE | 2021-11-08 13:12 | XR ---
EXAMINATION TYPE: XR chest 2V DATE OF EXAM: 11/08/2021 COMPARISON: Chest x-ray 09/27/2021 HISTORY: Preop, shortness of breath TECHNIQUE: Frontal and lateral views of the chest are obtained. FINDINGS: There is no focal air space opacity, pleural effusion, or pneumothorax seen. The cardiac silhouette size is within normal limits. The aorta is dense. The osseous structures are intact, ther e is thoracic spondylosis. Stable eventration of the right hemidiaphragm noted. IMPRESSION: No acute cardiopulmonary process.
[2021-11-08 14:28] LABS: HCT 39.7 % (37.2-46.3); HGB 12.8 g/dL (12.0-15.0); MCH 28.6 pg (27.0-32.0); MCHC 32.2 g/dL (32.0-37.0); MCV 88.8 fL (80.0-97.0); Mean Platelet Volume 10.2 fL (9.5-12.2); NRBC Per 100 WBC 0 /100 WBCS (0.0-0.0); Platelet Count 351 X 10*3/uL (140-440); RBC 4.47 X 10*6/uL (4.10-5.20); RDW 13.8 % (11.5-14.5); WBC 6.51 X 10*3/uL (4.50-10.00)
[2021-11-08 14:54] LABS: ALT 23 U/L (8-44); AST 19 U/L (13-35); African American GFR (CKD) 78.3 (60.0-200.0); Albumin 4.1 g/dL (3.8-4.9); Albumin/Globulin Ratio 1.64 (1.60-3.17); Alkaline Phosphatase 77 U/L (41-126); BUN/Creat Ratio 16.33 Ratio (12.00-20.00); Blood Urea Nitrogen 14.7 mg/dL (9.0-27.0); Calcium 9.1 mg/dL (8.7-10.3); Carbon Dioxide 24.3 mmol/L (20.0-27.5); Chloride 106 mmol/L (96-109); Chol/HDL Ratio 2.61 Ratio; Globulin 2.5 g/dL (1.6-3.3); Glucose 92 mg/dL (70-110); Hepatitis A Antibody IgM Nonreactive (Nonreactive); Hepatitis B Core IgM Nonreactive (Nonreactive); Hepatitis B Surface Antigen Nonreactive (Nonreactive); Hepatitis C IgG Antibody Nonreactive (Nonreactive); LDL Cholesterol,Calculated 81.3 mg/dL (0.0-131.0); Magnesium 2.1 mg/dL (1.5-2.4); Non-African American GFR(CKD) 67.6 (60.0-200.0); Potassium 4.5 mmol/L (3.5-5.5); Sodium 140 mmol/L (135-145); Total Protein 6.6 g/dL (6.2-8.2)
[2021-11-08 15:32] LABS: Appearance,Urine Clear (Clear); Bilirubin,Urine Negative (Negative); Blood,Urine Negative (Negative); Color,Urine Yellow (Yellow); Ketones,Urine Negative (Negative); Nitrite,Urine Negative (Negative); PH, Urine 7.5 (5.0-8.0); Specific Gravity,Urine 1.005 (1.001-1.030); Urobilinogen,Urine 0.2 (0.2,1.0)
== END | disposition home or self-care (01) ==
LOC: LABWHC1 09:30
PROVIDERS: ATTEND Thoracic Surgery (Cardiothoracic Vascular Surgery)
DX: I34.9 Nonrheumatic mitral valve disorder, unspecified (principal)
CPT/HCPCS: 36415; 71046; 80053; 80061; 80074; 81003; 83036; 83735; 84439; 84443; 85027; 85610; 85730; 87070; 87086; 93005; 93880

== ENCOUNTER 2021-11-11 05:34 | Inpatient (IN) | payer MEDICAID ==
[~2021-11-11 05:34] MED LIST changes: +ALBUMIN HUMAN 25% 50 ML IV ONE; +ALBUMIN HUMAN 5% 500 ML IVPB ONE; +ASPIRIN 325 MG TAB PO ONE; +ATORVASTATIN 10 MG TAB PO ONE; +CALCIUM CHLORIDE 100 MG/ML 10 ML SYRINGE IV ONE; +CHLORHEXIDINE GLUCONATE 15 ML CUP MUCOUS MEM ONE; +CLEVIDIPINE BUTYRATE 25 MG in EMPTY BAG 1 BAG IV ONE; +ELECTROLYTE-A SOLUTION 1,000 ML with POTASSIUM CHLORIDE 100 MEQ, MAGNESIUM SULFATE 16 M... IV ONE; +ELECTROLYTE-A SOLUTION 1,000 ML with POTASSIUM CHLORIDE 40 MEQ, MAGNESIUM SULFATE 16 ME... IV ONE; +HEPARIN SODIUM 1,000 UN/ML (10ML VL) IV ONE; +HEPARIN SODIUM,PORCINE 5,000 UNIT in SODIUM CHLORIDE 0.9% 500 ML 500 ML IV ONE; +INSULIN REGULAR 100 UNIT in SODIUM CHLORIDE 0.9% 100 ML IV ONE; +LACTATED RINGERS 1,000 ML IV ONE; -LACTATED RINGERS 1,000 ML IV SCH; +MAGNESIUM SULFATE 16.24 MEQ in EMPTY SYRINGE 1 SYR IV ONE; +MANNITOL 25% 12.5 GM/50 ML VIAL IV ONE; +METOPROLOL TARTRATE 12.5 MG TAB PO ONE; +NITROGLYCERIN SL TABS 0.4 MG TAB SUBLINGUAL ONE; +NITROGLYCERIN-D5W PMX 25 MG/250 ML BTL IV ONE; +NITROGLYCERIN-D5W PMX 50 MG in DEXTROSE/WATER 1 250ML.BAG IV ONE; +NOREPINEPHRINE 4 MG in SODIUM CHLORIDE 0.9% 250 ML IV ONE; +PHENYLEPHRINE 10 MG/ML VIAL IV ONE; +PHENYLEPHRINE 40 MG in SODIUM CHLORIDE 0.9% 250 ML IV ONE; +PROTAMINE SULFATE 10 MG/ML 25 ML VIAL IV ONE; +PROTAMINE SULFATE 250 MG in EMPTY BAG 1 BAG IV ONE; +SODIUM BICARB 8.4% 50 ML SYR (1 MEQ/ML) IV ONE; +SODIUM CHLORIDE 0.9% 1,000 ML IV ONE; +TRANEXAMIC ACID 2,000 MG in SODIUM CHLORIDE 0.9% 80 ML IV ONE; +ceFAZolin 1,000 MG in SODIUM CHLORIDE 0.9% IRRIGATIO 1,000 ML IRRIGATION ONE; +propofoL 1,000 MG/100 ML VIAL IV ONE
[2021-11-11 06:26] LABS: Glucose,Whole Blood 92 mg/dL (75-99)
[2021-11-11] MEDS ORDERED: SODIUM CHLORIDE 0.9% 100 ML BAG ONE (07:40)
[2021-11-11] MEDS ORDERED: VECURONIUM 10 MG VIAL IV ONE (07:40)
[2021-11-11] MEDS ORDERED: ceFAZolin 1,000 MG VIAL ONE (07:40)
[2021-11-11] MEDS ORDERED: fentaNYL (PF) 50 MCG/ML 50 ML VIAL ONE (07:40)
[2021-11-11] MEDS ORDERED: MAGNESIUM SULFATE 4 MEQ/ML 10ML VIAL ONE (07:40)
[2021-11-11] MEDS ORDERED: PROTAMINE SULFATE 10 MG/ML 25 ML VIAL IV ONE (07:40)
[2021-11-11] MEDS ORDERED: TRANEXAMIC ACID IN NACL,ISO-OS 1,000 MG/100 ML BAG ONE (07:40)
[2021-11-11] MEDS ORDERED: MIDAZOLAM HCL 10 MG/10 ML VIAL ONE (07:40)
[2021-11-11] MEDS ORDERED: HEPARIN SODIUM,PORCINE 10,000 UNIT/ML 1 ML VIAL ONE (07:40)
[2021-11-11] MEDS ORDERED: PROPOFOL 10 MG/ML 20 ML VIAL IV ONE (07:40)
[2021-11-11] MEDS ORDERED: WATER FOR INJECTION, STERILE 10 ML VIAL IV ONE (07:40)
[2021-11-11] MEDS ORDERED: SODIUM CHLORIDE 0.9% IRRIG 1,000 ML BTL IRRIGATION ONE (07:40)
[2021-11-11] MEDS ORDERED: LIDOCAINE 2% SYG (PF) 100 MG/5 ML ONE (07:40)
[2021-11-11] MEDS ORDERED: CALCIUM CHLORIDE 100 MG/ML 10 ML SYRINGE ONE (07:40)
[2021-11-11] MEDS ORDERED: ELECTROLYTE-R (PH 7.4) 1,000 ML IV.SOLN IV ONE (07:40)
[2021-11-11 08:49] LABS: ABG Base Excess -1.8 mmol/L; ABG Glucose Whole Blood 98 mg/dL (75-99); ABG HCO3 23 mmol/L (21-25); ABG Hematocrit 36 % (34.0-46.0); ABG Ionized Calcium 4.6 mg/dL (4.5-5.3); ABG Lactic Acid Whole Blood 0.7 mmol/L (0.5-1.6); ABG Oxygen Saturation 99.6 % (94-97); ABG PCO2 36 mmHg (35-45); ABG PO2 243 mmHg (83-108); ABG Potassium Whole Blood 3.9 mmol/L (3.4-4.5); ABG Sodium Whole Blood 141 mmol/L (135-146); ABG TCO2 24 mmol/L (19-24)
[2021-11-11 09:40] LABS: ABG Glucose Whole Blood 104 mg/dL (75-99); ABG HCO3 23 mmol/L (21-25); ABG Hematocrit 34 % (34.0-46.0); ABG Ionized Calcium 4.5 mg/dL (4.5-5.3); ABG Lactic Acid Whole Blood 0.7 mmol/L (0.5-1.6); ABG Oxygen Saturation 99.6 % (94-97); ABG PCO2 37 mmHg (35-45); ABG PH 7.39 (7.35-7.45); ABG PO2 246 mmHg (83-108); ABG Sodium Whole Blood 140 mmol/L (135-146); ABG TCO2 24 mmol/L (19-24)
[2021-11-11 10:04] LABS: ABG Base Excess -2.6 mmol/L; ABG Glucose Whole Blood 104 mg/dL (75-99); ABG HCO3 22 mmol/L (21-25); ABG Hematocrit 25 % (34.0-46.0); ABG Ionized Calcium 3.8 mg/dL (4.5-5.3); ABG Lactic Acid Whole Blood 0.8 mmol/L (0.5-1.6); ABG PCO2 36 mmHg (35-45); ABG PO2 410 mmHg (83-108); ABG Potassium Whole Blood 5.4 mmol/L (3.4-4.5); ABG Sodium Whole Blood 136 mmol/L (135-146); ABG TCO2 23 mmol/L (19-24)
[2021-11-11 10:29] LABS: ABG Base Excess -3.9 mmol/L; ABG Glucose Whole Blood 103 mg/dL (75-99); ABG HCO3 22 mmol/L (21-25); ABG Hematocrit 26 % (34.0-46.0); ABG Ionized Calcium 4.1 mg/dL (4.5-5.3); ABG Lactic Acid Whole Blood 0.9 mmol/L (0.5-1.6); ABG Oxygen Saturation 99.8 % (94-97); ABG PCO2 45 mmHg (35-45); ABG PH 7.31 (7.35-7.45); ABG PO2 349 mmHg (83-108); ABG Potassium Whole Blood 5.2 mmol/L (3.4-4.5); ABG Sodium Whole Blood 137 mmol/L (135-146); ABG TCO2 24 mmol/L (19-24)
--- NOTE | 2021-11-11 11:19 | P.ANPRN ---
Procedure Note - Anesthesia - Invasive Line Right Arterial Line Time Out Performed: Yes Date of Procedure: 11/11/21 Time of Procedure: 07:10 Location of Patient: PreOp Preparation: Sterile Prep, Sterile Dressing Arterial Line Location: Radial Ultrasound Used: No Needle Guage: 20 Narrative: Right radial arterial catheter placed by HYDRO STATION OPERATOR Right Central Line Time Out Performed: Yes Date of Procedure: 11/11/21 Time of Procedure: 07:45 Location of Patient: PreOp Preparation: Sterile Prep, Sterile Dressing Ultrasound Used: Yes Purpose - Visualization and Identification of Vasculature: Yes Needle Guage: 18 Image Stored and Saved: Yes Narrative: Central line placement per sterile protocol utilized. Right [place] Kathy Time Out Performed: Yes Date of Procedure: 11/11/21 Time of Procedure: 07:55 Location of Patient: PreOp Preparation: Sterile Prep, Sterile Dressing Narrative: SWAN floated to PA waveform. Secured @ 37 cm
--- NOTE | 2021-11-11 11:23 | P.ANPRN ---
Procedure Note - Anesthesia - ESCOBAR Intraop Pre Bypass ESCOBAR Intraop - Anesthesia Indication: Chest pain, Mitral regurgitation Date of Procedure: 11/11/21 Pre-operative Diagnosis: MR Post-operative Diagnosis: Same Surgeon: Jossue Kurtz Left Ventricle: 50 Ejection Fraction: Normal Regional Wall Motion Abnormalities: None Left Ventricle Hypertrophy: No R. Ventricle Function: Normal Anatomy: Trileaflet Aortic Stenosis: None Aortic Regurgitation: None Mitral Valve: 2+ MR, decrease from preoperative assessment Mitral Stenosis: None Mitral Regurgitation: Moderate Tricuspid Stenosis: None Tricuspid Regurgitation: Trace Pulmonic Stenosis: None Pulmonic Regurgitation: None R. Atrial Dilation: No R. Atrial PFO: No L. Atrial Dilation: No Aortic Dissection: No Aortic Calcification: None Plural Effusion: None - ESCOBAR Intraop Post Bypass ESCOBAR Intraop Post Bypass Procedure Performed: MV annuloplasty Left Ventricle: 50 Ejection Fraction: Normal Regional Wall Motion Abnormalities: None R. Ventricle Function: Normal Aortic Valve: Unchanged Mitral Valve: Trace MR. Annuloplasty ring. Peak 9 mmHg, Mean 3 mmHg Tricuspid: Unchanged Tricuspid: Mild TR Pulmonic: Unchanged Aortic Dissection: No
[2021-11-11 11:26] LABS: ABG Base Excess -1.8 mmol/L; ABG Glucose Whole Blood 121 mg/dL (75-99); ABG HCO3 23 mmol/L (21-25); ABG Hematocrit 31 % (34.0-46.0); ABG Ionized Calcium 5.3 mg/dL (4.5-5.3); ABG Lactic Acid Whole Blood 1.3 mmol/L (0.5-1.6); ABG Oxygen Saturation 99.2 % (94-97); ABG PCO2 36 mmHg (35-45); ABG PH 7.41 (7.35-7.45); ABG PO2 157 mmHg (83-108); ABG Potassium Whole Blood 4.9 mmol/L (3.4-4.5); ABG Sodium Whole Blood 138 mmol/L (135-146); ABG TCO2 24 mmol/L (19-24)
[2021-11-11] MEDS ORDERED: Phosphorus Replacement Protoco 1 EACH MISC MISCELLANE PRN (12:17)
[2021-11-11] MEDS ORDERED: Potassium Replacement Protocol 1 EACH MISC MISCELLANE PRN (12:17)
[2021-11-11] MEDS ORDERED: AMIODARONE 450 MG in DEXTROSE 5% IN WATER 250 ML IV PRN ×2 (12:17)
[2021-11-11] MEDS ORDERED: ALBUMIN HUMAN 5% 250 ML in EMPTY BAG 1 BAG IVPB PRN (12:17)
[2021-11-11] MEDS ORDERED: IPRATROPIUM-ALBUTEROL 3 ML NEB INHALATION PRN (12:17)
[2021-11-11] MEDS ORDERED: Magnesium Replacement Protocol 1 EACH MISC MISCELLANE PRN (12:17)
[2021-11-11] MEDS ORDERED: AMIODARONE 360 MG in DEXTROSE 5% IN WATER 200 ML IV PRN ×2 (12:17)
[2021-11-11] MEDS ORDERED: CALCIUM GLUCONATE IN NACL 2 GM in SALINE 1 100ML.BAG IVPB PRN (12:17)
[2021-11-11] MEDS ORDERED: METOCLOPRAMIDE 5 MG/ML 2 ML VIAL IVP PRN (12:17)
[2021-11-11] MEDS ORDERED: BENZOCAINE/MENTHOL LOZENG 1 EACH LOZENGE MUCOUS MEM PRN (12:17)
[2021-11-11] MEDS ORDERED: hydrALAZINE HCL 20 MG/ML 1 ML VIAL IVP PRN (12:17)
[2021-11-11] MEDS ORDERED: DEXMEDETOMIDINE/0.9% NACL(PMX) 400 MCG in EMPTY BAG 1 BAG IV SCH (12:17)
[2021-11-11 12:30] LABS: Basophils # (A) 0.1 k/uL (0-0.2); Basophils % (A) 1 %; Eosinophils # (A) 0.1 k/uL (0-0.7); Eosinophils % (A) 1 %; HCT 33.9 % (34.0-46.0); HGB 10.7 gm/dL (11.4-16.0); Lymphocytes % (A) 11 %; MCH 28.2 pg (25.0-35.0); MCHC 31.5 g/dL (31.0-37.0); MCV 89.5 fL (80.0-100.0); Mean Platelet Volume 7.5; Monocytes # (A) 0.5 k/uL (0-1.0); Monocytes % (A) 3 %; Neutrophils # (A) 15.9 k/uL (1.3-7.7); Neutrophils % (A) 85 %; Platelet Count 219 k/uL (150-450); RBC 3.79 m/uL (3.80-5.40); RDW 13.3 % (11.5-15.5); WBC 18.8 k/uL (3.8-10.6)
[2021-11-11 12:35] LABS: Ionized Calcium 5.1 mg/dL (4.5-5.3)
[2021-11-11 12:37] LABS: Glucose,Whole Blood 117 mg/dL (75-99)
[2021-11-11] MEDS: CLEVIDIPINE BUTYRATE 25 MG in EMPTY BAG 1 BAG IV SCH ×3 (12:42→20:32)
[2021-11-11 12:43] LABS: Partial Thromboplastin Time 24.7 sec (22.0-30.0); Prothrombin Time 10.9 sec (9.0-12.0)
[2021-11-11] MEDS: LACTATED RINGERS 1,000 ML IV SCH (12:43)
[2021-11-11 12:45] LABS: ALT 18 U/L (4-34); AST 43 U/L (14-36); African American GFR (CKD) >90 (>60 ml/min/1.73 sqM); Albumin 2.9 g/dL (3.5-5.0); Alkaline Phosphatase 50 U/L (38-126); Anion Gap 6 mmol/L; Blood Urea Nitrogen 16 mg/dL (7-17); Calcium 8.2 mg/dL (8.4-10.2); Carbon Dioxide 22 mmol/L (22-30); Chloride 109 mmol/L (98-107); Glucose 112 mg/dL (74-99); Magnesium 2.8 mg/dL (1.6-2.3); Non-African American GFR(CKD) 85 (>60 ml/min/1.73 sqM); Potassium 4.3 mmol/L (3.5-5.1); Sodium 137 mmol/L (137-145); Total Bilirubin 0.5 mg/dL (0.2-1.3)
--- NOTE | 2021-11-11 12:45 | OP ---
OPERATIVE REPORT DATE OF THE OPERATION: 11/11/2021 ATTENDING SURGEON: Dr. Jossue Kurtz. ASSISTANTS: 1. BECKA Tolentino. 2. KALYANI Story. PREOPERATIVE DIAGNOSIS: Severe mitral regurgitation. POSTOPERATIVE DIAGNOSIS: Severe mitral regurgitation with dilated mitral anulus. PROCEDURE: Mitral valve repair with a #28 mm [employer] AnnuloFlex band, clip ligation of the left atrial appendage with a 35 mm AtriClip and intraoperative transesophageal echocardiogram. ANESTHESIA: General. BLOOD LOSS: 500 mL. SUMMARY: The patient was brought to the operating room, placed in supine position. Following administration of a general endotracheal anesthetic, placement of a [place]-Kathy catheter, arterial line, adequate IV access, Sanchez catheter, the patient was carefully prepped and draped in normal sterile fashion using chlorhexidine paint and sterile towels. Preoperative ESCOBAR showed moderate central mitral regurgitation with mild coaptation; this was under full anesthesia and completely unloaded. LV function was good. Midline incision in the chest was made and sternum divided. Pericardium was opened. Heart size was normal in caliber. The aorta was soft. The patient was heparinized with ACT of greater than 40. The aorta and two single-stage venous cannulas were placed. Antegrade and retrograde cardioplegia catheters were positioned in the ascending aorta and the coronary sinus. The patient was placed on bypass, cross-clamp placed, heart arrested with one liter of antegrade followed by 500 mL retrograde cardioplegia. Retrograde cardioplegia was delivered 300 to 500 mL at the end of each 20-minute interval. First the base of the left atrial appendage was measured. A 35 mm AtriClip was secured at the base, officially obliterating the left atrial appendage. Next the left atrium was entered at the junction of the right superior pulmonary vein. A handheld retractor was placed. The mitral valve was identified. The subvalvular apparatus was within normal limits. The anulus was dilated. It sized to a 28 mm [employer] AnnuloFlex band. Two-0 Tycron non-pledgeted sutures were placed from trigone to trigone along the posterior anulus. These were then passed through the band, which was seated and seated well, and all sutures were secured, tied and cut using the Hotelscan ligature system device. At this point it was tested with a handheld marli, and there was no evidence of any further regurgitation, with good coaptation. Next the left atriotomy was closed using a double-layered pledgeted 4-0 Prolene vertical mattress followed by an over-and- over stitch from both sides. The patient was placed head down and complete de-airing maneuver was performed three time. One liter of warm blood retrograde cardioplegia was run. Cross-clamp was then removed. Once the patient was rewarmed and paced DDD at 70, ventilated and brought off bypass. He came off bypass uneventfully with good hemodynamics. Protamine was delivered, patient decannulated. Pacing wires had already been placed. Mediastinal right pleural chest tubes were placed. At this point the sternum was closed with four #6 sternal wires, two [id number] [place] sternal cable closure devices. Skin, subcutaneous tissue and fascia were closed in three layers. No complications. Patient tolerated the procedure well. Postoperative ESCOBAR showed excellent mitral valve function, good coaptation of the leaflets, no mitral regurgitation and good left ventricular function. MMODL / IJN: [id number] /
[2021-11-11 12:48] LABS: ABG Base Excess -2.1 mmol/L; ABG HCO3 24 mmol/L (21-25); ABG PCO2 47 mmHg (35-45); ABG PH 7.32 (7.35-7.45); ABG PO2 207 mmHg (83-108); ABG TCO2 26 mmol/L (19-24)
--- NOTE | 2021-11-11 12:48 | XR ---
EXAMINATION TYPE: XR chest 1V portable DATE OF EXAM: 11/11/2021 CLINICAL HISTORY: Postopen cardiac surgery. TECHNIQUE: Single AP portable supine view of the chest is obtained. COMPARISON: Chest x-ray from 3 days earlier FINDINGS: There is new endotracheal tube terminating inferior clavicular level approximately 3 to 4 cm above the litzy. There is new orogastric tube projecting below diaphragm. There is new right inte rnal jugular [place]-Kathy catheter with tip at level of pulmonary outflow tract. There is right apical c hest tube without pneumothorax. There is left atrial appendage clip along with surgical change of lev el of the mitral valve. Overlying sternal wires and mediastinal clips are now present. Overlying epic ardial pacer wires are now seen. Both lungs remain clear. Cardiac silhouette size remains within normal limits. Osseous structures are intact. IMPRESSION: 1. Tubes and lines are satisfactory in position as detailed above. 2. New extensive postsurgical changes. New right-sided chest tube without pneumothorax. Lungs remain grossly clear currently.
[2021-11-11 13:16] LABS: Glucose,Whole Blood 113 mg/dL (75-99)
[2021-11-11] MEDS: ACETAMINOPHEN IV (For NPO) 1,000 MG in EMPTY BAG 1 BAG IVPB SCH ×2 (13:21→18:09)
[2021-11-11] MEDS: IPRATROPIUM-ALBUTEROL 3 ML NEB INHALATION SCH ×4 (13:36→19:54)
[2021-11-11 14:11] LABS: Glucose,Whole Blood 128 mg/dL (75-99)
[2021-11-11 14:22] LABS: Basophils # (A) 0.1 k/uL (0-0.2); Basophils % (A) 0 %; Eosinophils # (A) 0.1 k/uL (0-0.7); Eosinophils % (A) 1 %; HCT 35.5 % (34.0-46.0); HGB 11.3 gm/dL (11.4-16.0); Lymphocytes # (A) 1.5 k/uL (1.0-4.8); Lymphocytes % (A) 8 %; MCH 28.8 pg (25.0-35.0); MCHC 31.9 g/dL (31.0-37.0); MCV 90.4 fL (80.0-100.0); Mean Platelet Volume 7.3; Monocytes # (A) 0.9 k/uL (0-1.0); Monocytes % (A) 5 %; Neutrophils # (A) 14.9 k/uL (1.3-7.7); Neutrophils % (A) 85 %; Platelet Count 262 k/uL (150-450); RBC 3.93 m/uL (3.80-5.40); RDW 13.3 % (11.5-15.5); WBC 17.6 k/uL (3.8-10.6)
--- NOTE | 2021-11-11 15:10 | P.CNPUL ---
History of Present Illness Consult date: 11/11/21 Chief complaint: Post thoracotomy History of present illness: 66-year-old female patient, underwent a mitral valve annuloplasty and she is currently postop day #0. The patient was brought into the intensive care unit. Pulmonary critical care services were consulted. I saw the patient immediately after she arrived from the operating room. She was hemodynamically stable on no pressors. The patient was sedated with propofol and the sedation was weaned down the propofol was at the rate of 10 g is particularly per minute. The patient was adequately sedated and the patient was, comfortable, sickle cell mechanical ventilator. The patient was an assist-control mode of mechanical ventilation at the rate of 12 with a tidal volume of 400 and FiO2 of 100% with a PEEP of 10. The FiO2 was up to 60%. Initial blood gases showed a pH of 7.31 with a pCO2 of 47 and pO2 of 207. The patient has chest tubes 1 mediastinal and 1 right pleural. The postop chest x-ray showed no acute abnormalities. No evidence of pneumothorax. ET tube was in a good location. The patient has a Rutledge-Kathy catheter in the right IJ which is also in a good location. The patient's cardiac rhythm is sinus. The patient has no hemodynamic instability. Pulmonary artery pressures were 35/19. Cardiac output was at 4.3 with an index of 2.2. Urine output was adequate. The blood work showed a white cell, 70.6 with a hemoglobin of 11.3 and a platelet count is 262. Output from the chest tubes are minimal at this point in time. No evidence of any bleeding. Review of Systems ROS unobtainable: due to endotracheal tube Past Medical History Past Medical History: GERD/Reflux, Hypertension, Mitral Valve Prolapse (MVP), Osteoarthritis (OA), Pneumonia, Thyroid Disorder Additional Past Medical History / Comment(s): Mitral valve prolapse, hx. colon polyps, SOB w/exertion although a little better recently, needing knee replacement, past hx. pneumonia 2019, possible sleep apnea History of Any Multi-Drug Resistant Organisms: None Reported Past Surgical History: Appendectomy, Heart Catheterization, Tubal Ligation Additional Past Surgical History / Comment(s): parotid gland tumor removed, colonoscopies, fallopian tubes removed, ovaries removed 2007 Past Anesthesia/Blood Transfusion Reactions: No Reported Reaction, Family History of Problems w/ Anesthesia Additional Past Anesthesia/Blood Transfusion Reaction / Comment(s): 16 y.o. son had some chest pain that was attributed to anesthesia per pt. but he's had further surg. w/no problems Smoking Status: Never smoker - Past Family History Mother Sister(s) Family Medical History: Cancer Additional Family Medical History / Comment(s): mom colon, sister brain & breast cancer Medications and Allergies Home Medications Medication Instructions Recorded Confirmed Type Levothyroxine Sodium [Synthroid] 150 mcg PO DAILY 03/31/17 11/10/21 History Ibuprofen [Advil] 200 - 400 mg PO Q6HR PRN 09/25/18 11/08/21 History ALPRAZolam [Xanax] 0.25 mg PO HS PRN 01/06/20 11/08/21 History Losartan [Cozaar] 50 mg PO DAILY #30 tab 01/08/20 11/08/21 Rx hydroCHLOROthiazide [Hydrodiuril] 12.5 mg PO DAILY #30 cap 01/08/20 11/08/21 Rx Omeprazole [PriLOSEC] 20 mg PO DAILY PRN 11/08/21 11/08/21 History Acetaminophen [Tylenol Arthritis] 650 mg PO Q6H PRN 11/10/21 11/10/21 History Mupirocin [Mupirocin 2%] 1 applic NASAL BID #1 tub 11/10/21 11/10/21 Rx Allergies Allergy/AdvReac Type Severity Reaction Status Date / Time cortisone Allergy Rash/Hives Verified 11/11/21 05:52 hyaluronic acid Allergy Itching Verified 11/11/21 05:52 [From Hyalgan] @injection site hydrocodone AdvReac SHORTNESS Verified 11/11/21 05:52 OF BREATHE propoxyphene napsylate AdvReac SHORTNESS Verified 11/11/21 05:52 [From Darvocet-N] OF BREATHE Physical Exam Vitals: Vital Signs Temp Pulse Pulse Resp BP Pulse Ox FiO2 11/11/21 14:30 63 13 100 11/11/21 14:15 63 12 11/11/21 14:00 70 12 11/11/21 13:47 70 12 11/11/21 13:45 70 12 100 11/11/21 13:36 70 12 11/11/21 13:30 70 13 100 11/11/21 13:15 70 13 100 11/11/21 13:00 95.9 F L 70 12 100 100 11/11/21 12:52 60 11/11/21 12:45 69 12 100 11/11/21 12:30 70 9 L 100 11/11/21 12:23 100 11/11/21 12:15 69 8 L 11/11/21 12:13 0 L 21 11/11/21 12:10 100 11/11/21 06:35 97.1 F L 76 16 171/69 97 Intake and Output 11/11/21 11/11/21 11/11/21 06:59 14:59 22:59 Intake Total 100 102.747 Output Total 1300 Balance 100 -1197.253 Intake: IV 100 51 Intake, IV Titration 51.747 Amount Clevidipine Butyrate 25 18.133 mg In Empty Bag 1 bag @ 1 MG/HR 2 mls/hr IV .Q24H [facility] Rx#:[id number] propofoL 1,000 mg In 33.614 Empty Bag 1 bag @ Titrate IV .Q0M [facility] Rx#: [id number] Output: Urine 400 Estimated Blood Loss 900 Other: Weight 92.6 kg ABP, PAP, CO, CI - Last 8 Hours Arterial Blood Pressure 117/53 Arterial Blood Pressure 124/56 Arterial Blood Pressure 117/55 Arterial Blood Pressure 116/54 Arterial Blood Pressure 120/56 Arterial Blood Pressure 124/55 Arterial Blood Pressure 118/53 Arterial Blood Pressure 31/4 Arterial Blood Pressure 116/53 Arterial Blood Pressure 131/50 Pulmonary Artery Pressure 34/20 Pulmonary Artery Pressure 36/19 Pulmonary Artery Pressure 37/20 Pulmonary Artery Pressure 35/20 Pulmonary Artery Pressure 37/22 Pulmonary Artery Pressure 36/21 Pulmonary Artery Pressure 35/20 Pulmonary Artery Pressure 35/19 Pulmonary Artery Pressure 31/18 Pulmonary Artery Pressure 37/13 Pulmonary Artery Pressure 48/44 Cardiac Output 4.3 Cardiac Output 4.3 Cardiac Output 4.4 Cardiac Output 4.4 Cardiac Output 4.4 Cardiac Output 4.4 Cardiac Output 4.4 Cardiac Output 4.4 Cardiac Output 4.4 Cardiac Index 2.2 Cardiac Index 2.2 Cardiac Index 2.2 Cardiac Index 2.2 Cardiac Index 2.2 Cardiac Index 2.2 Cardiac Index 2.2 Cardiac Index 2.2 Cardiac Index 2.2 Intubated on a mechanical ventilator, calm and comfortable, sedated with propofo l, orogastric and orotracheal tube are both in place Head exam was generally normal. There was no scleral icterus or corneal arcus. Mucous membranes were moist. Neck was supple and without jugular venous distension, thyromegaly, or carotid bruits. Carotids were easily palpable bilaterally. There was no adenopathy. Lungs were clear to auscultation and percussion, and with normal diaphragmatic excursion. No wheezes or rales were noted. The patient has a right pleural and mediastinal chest tube both her mother place. Cardiac exam revealed the PMI to be normally situated and sized. The rhythm was regular and no extrasystoles were noted during several minutes of auscultation. The first and second heart sounds were normal and physiologic splitting of the second heart sound was noted. There were no murmurs, rubs, clicks, or gallops. Sternum stable clean and intact with appropriate surgical dressing is in place Abdominal exam revealed normal bowel sounds. The abdomen was soft, non-tender, and without masses, organomegaly, or appreciable enlargement of the abdominal aorta. Examination of the extremities revealed easily palpable radial, femoral and pedal pulses. There was no cyanosis, clubbing or edema. Examination of the skin revealed no evidence of significant rashes, suspicious appearing nevi or other concerning lesions. Neurologic exam is suboptimal as the patient is sedated yet the patient withdraws to painful semination all 4 extremities without any limitation. Results - Laboratory Findings CBC and BMP: 11/11/21 14:07 11/11/21 12:15 ABG ABG pH 7.32 (7.35-7.45) L 11/11/21 12:46 ABG pCO2 47 mmHg (35-45) H 11/11/21 12:46 ABG pO2 207 mmHg (83-108) H 11/11/21 12:46 ABG O2 Saturation 99.0 % (94-97) H 11/11/21 12:46 PT/INR, D-dimer PT 10.9 sec (9.0-12.0) 11/11/21 12:15 INR 1.0 (<1.2) 11/11/21 12:15 Abnormal lab findings: Abnormal Labs 11/08/21 11/11/21 11/11/21 09:09 08:50 09:40 WBC RBC Hgb Hct Neutrophils # ABG pH ABG pCO2 ABG pO2 243 H 246 H ABG Total CO2 ABG O2 Saturation 99.6 H 99.6 H ABG Hematocrit ABG Potassium ABG Ionized Calcium ABG Glucose 104 H Hemoglobin 10.9 L Chloride Glucose POC Glucose (mg/dL) Calcium Magnesium AST Total Protein Albumin Arterial Blood Potassium Arterial Blood Glucose 104 H Crossmatch See Detail 11/11/21 11/11/21 11/11/21 10:06 10:30 11:27 WBC RBC Hgb Hct Neutrophils # ABG pH 7.31 L ABG pCO2 ABG pO2 410 H 349 H 157 H ABG Total CO2 ABG O2 Saturation 100.0 H 99.8 H 99.2 H ABG Hematocrit 25 L 26 L 31 L ABG Potassium 5.4 H 5.2 H 4.9 H ABG Ionized Calcium 3.8 L 4.1 L ABG Glucose 104 H 103 H 121 H Hemoglobin 8.2 L 8.3 L 9.9 L Chloride Glucose POC Glucose (mg/dL) Calcium Magnesium AST Total Protein Albumin Arterial Blood Potassium 5.4 H 5.2 H 4.9 H Arterial Blood Glucose 104 H 103 H 121 H Crossmatch 11/11/21 11/11/21 11/11/21 12:15 12:15 12:18 WBC 18.8 H RBC 3.79 L Hgb 10.7 L Hct 33.9 L Neutrophils # 15.9 H ABG pH ABG pCO2 ABG pO2 ABG Total CO2 ABG O2 Saturation ABG Hematocrit ABG Potassium ABG Ionized Calcium ABG Glucose Hemoglobin Chloride 109 H Glucose 112 H POC Glucose (mg/dL) 117 H Calcium 8.2 L Magnesium 2.8 H AST 43 H Total Protein 5.0 L Albumin 2.9 L Arterial Blood Potassium Arterial Blood Glucose Crossmatch 11/11/21 11/11/21 11/11/21 12:46 13:15 14:07 WBC 17.6 H RBC Hgb 11.3 L Hct Neutrophils # 14.9 H ABG pH 7.32 L ABG pCO2 47 H ABG pO2 207 H ABG Total CO2 26 H ABG O2 Saturation 99.0 H ABG Hematocrit ABG Potassium ABG Ionized Calcium ABG Glucose Hemoglobin Chloride Glucose POC Glucose (mg/dL) 113 H Calcium Magnesium AST Total Protein Albumin Arterial Blood Potassium Arterial Blood Glucose Crossmatch 11/11/21 14:09 WBC RBC Hgb Hct Neutrophils # ABG pH ABG pCO2 ABG pO2 ABG Total CO2 ABG O2 Saturation ABG Hematocrit ABG Potassium ABG Ionized Calcium ABG Glucose Hemoglobin Chloride Glucose POC Glucose (mg/dL) 128 H Calcium Magnesium AST Total Protein Albumin Arterial Blood Potassium Arterial Blood Glucose Crossmatch Assessment and Plan Plan: Mitral valve annuloplasty, surgery was done for severe symptomatically mitral regurgitation the patient is postop day #0. The patient is currently hemodynamically stable on no pressors. Adequate cardiac output. Adequate hemodynamics. Post thoracotomy, currently intubated on mechanical ventilator. The patient has a right pleural and mediastinal chest tube. No evidence of any pneumothorax. Output from the chest tube is minimal at this point in time. Hypothyroidism Hypertension Colonic polyps Chronic anxiety Plan With down the FiO2 to 50% and bleeding of the respiratory rate up to 20 Chest x-ray was reviewed Blood gases was reviewed Wean down the propofol and check weaning parameters and assess his readiness to wean and I would insipidus patient extubated within the next hour or so. Monitor hemodynamic parameters Cardiac rhythm is sinus We'll continue to follow
[2021-11-11 15:14] LABS: Glucose,Whole Blood 130 mg/dL (75-99)
[2021-11-11] MEDS: INSULIN REGULAR 100 UNIT in SODIUM CHLORIDE 0.9% 100 ML IV SCH (15:20)
[2021-11-11 15:54] LABS: ABG Base Excess -1.3 mmol/L; ABG HCO3 25 mmol/L (21-25); ABG Oxygen Saturation 98.3 % (94-97); ABG PCO2 47 mmHg (35-45); ABG PH 7.33 (7.35-7.45); ABG PO2 141 mmHg (83-108); ABG TCO2 26 mmol/L (19-24)
[2021-11-11 16:07] LABS: Glucose,Whole Blood 140 mg/dL (75-99)
[2021-11-11] MEDS: HEPARIN SODIUM,PORCINE/PF 5,000 UNIT/0.5 ML SYRINGE SQ SCH (16:40)
[2021-11-11 18:04] LABS: Glucose,Whole Blood 144 mg/dL (75-99)
[2021-11-11] MEDS: KETOROLAC 15 MG/ML 1 ML VIAL IVP SCH (18:09)
[2021-11-11 18:14] LABS: Basophils % (A) 0 %; Eosinophils % (A) 0 %; HCT 34.5 % (34.0-46.0); HGB 11.2 gm/dL (11.4-16.0); Lymphocytes # (A) 0.7 k/uL (1.0-4.8); Lymphocytes % (A) 4 %; MCH 29.3 pg (25.0-35.0); MCHC 32.5 g/dL (31.0-37.0); MCV 90.1 fL (80.0-100.0); Mean Platelet Volume 7.7; Monocytes # (A) 0.6 k/uL (0-1.0); Monocytes % (A) 4 %; Neutrophils # (A) 14.5 k/uL (1.3-7.7); Neutrophils % (A) 91 %; Platelet Count 282 k/uL (150-450); RBC 3.83 m/uL (3.80-5.40); WBC 15.9 k/uL (3.8-10.6)
[2021-11-11] MEDS ORDERED: MUPIROCIN 2% OINT 22 GM TUBE NASAL ONE (18:45)
[2021-11-11 19:04] LABS: Glucose,Whole Blood 126 mg/dL (75-99)
[2021-11-11 20:02] LABS: Glucose,Whole Blood 130 mg/dL (75-99)
[2021-11-11 21:14] LABS: Glucose,Whole Blood 129 mg/dL (75-99)
[2021-11-11] MEDS: MUPIROCIN 2% OINT 22 GM TUBE NASAL SCH (21:27)
[2021-11-11 22:14] LABS: Glucose,Whole Blood 125 mg/dL (75-99)
[2021-11-11 23:04] LABS: Glucose,Whole Blood 122 mg/dL (75-99)
[2021-11-12 00:15] LABS: Glucose,Whole Blood 122 mg/dL (75-99)
[2021-11-12] MEDS: HEPARIN SODIUM,PORCINE/PF 5,000 UNIT/0.5 ML SYRINGE SQ SCH ×3 (00:49→16:51)
[2021-11-12] MEDS: KETOROLAC 15 MG/ML 1 ML VIAL IVP SCH ×4 (00:50→19:11)
[2021-11-12 01:07] LABS: Glucose,Whole Blood 118 mg/dL (75-99)
[2021-11-12 02:07] LABS: Glucose,Whole Blood 122 mg/dL (75-99)
[2021-11-12 03:04] LABS: Glucose,Whole Blood 122 mg/dL (75-99)
[2021-11-12 04:02] LABS: Glucose,Whole Blood 131 mg/dL (75-99)
[2021-11-12 04:28] LABS: Basophils % (A) 0 %; Eosinophils % (A) 0 %; HCT 30.8 % (34.0-46.0); Lymphocytes # (A) 1.3 k/uL (1.0-4.8); Lymphocytes % (A) 10 %; MCH 29.1 pg (25.0-35.0); MCHC 32.6 g/dL (31.0-37.0); MCV 89.3 fL (80.0-100.0); Mean Platelet Volume 8.7; Monocytes # (A) 0.6 k/uL (0-1.0); Monocytes % (A) 5 %; Neutrophils # (A) 10.1 k/uL (1.3-7.7); Neutrophils % (A) 83 %; Platelet Count 241 k/uL (150-450); RBC 3.45 m/uL (3.80-5.40); WBC 12.3 k/uL (3.8-10.6)
[2021-11-12] MEDS: CLEVIDIPINE BUTYRATE 25 MG in EMPTY BAG 1 BAG IV SCH (04:32)
[2021-11-12 04:36] LABS: Ionized Calcium 4.6 mg/dL (4.5-5.3)
[2021-11-12 04:43] LABS: ALT 17 U/L (4-34); AST 57 U/L (14-36); African American GFR (CKD) >90 (>60 ml/min/1.73 sqM); Albumin 2.9 g/dL (3.5-5.0); Alkaline Phosphatase 44 U/L (38-126); Anion Gap 3 mmol/L; Blood Urea Nitrogen 14 mg/dL (7-17); Calcium 7.6 mg/dL (8.4-10.2); Carbon Dioxide 25 mmol/L (22-30); Chloride 105 mmol/L (98-107); Glucose 107 mg/dL (74-99); Non-African American GFR(CKD) >90 (>60 ml/min/1.73 sqM); Potassium 4.1 mmol/L (3.5-5.1); Sodium 133 mmol/L (137-145); Total Bilirubin 0.3 mg/dL (0.2-1.3); Total Protein 5.1 g/dL (6.3-8.2)
[2021-11-12 05:18] LABS: Glucose,Whole Blood 111 mg/dL (75-99)
[2021-11-12 06:04] LABS: Glucose,Whole Blood 117 mg/dL (75-99)
[2021-11-12] MEDS ORDERED: LEVOTHYROXINE 75 MCG TAB PO SCH (06:30)
[2021-11-12] MEDS: DEXTROSE 5% IN WATER 100 ML with AMIODARONE 150 MG IV PRN ×4 (06:30→18:11)
[2021-11-12 06:55] LABS: Glucose,Whole Blood 170 mg/dL (75-99)
[2021-11-12 07:01] LABS: T4, Free (Free Thyroxine) 1.49 ng/dL (0.78-2.19)
[2021-11-12] MEDS ORDERED: PANTOPRAZOLE 40 MG TABLET PO SCH (07:30)
[2021-11-12] MEDS ORDERED: METOPROLOL TARTRATE 12.5 MG TAB PO STA (07:41)
[2021-11-12] MEDS ORDERED: ACETAMINOPHEN TAB 325 MG TAB PO PRN (07:42)
--- NOTE | 2021-11-12 07:55 | P.CRDCN ---
History of Present Illness History of present illness: HISTORY OF PRESENTING ILLNESS Patient is a pleasant 66 -year-old female with history of hypertension, GERD, hypothyroidism, severe mitral regurgitation. She has been having increased shortness breath over the last 3 months and therefore underwent workup and found have severe mitral regurgitation. She underwent mitral valve repair 11/11/2021 with a 28 mm [employer] AnnuloFlex band, left atrial appendage clip without incident. She was extubated and currently this morning doing well and admitting to some chest pain around the incision worse with deep inspiration however not much shortness breath. She did have a brief episode of atrial fibrillation was placed on amiodarone with conversion back to sinus rhythm. She did admit to palpitations during this episode and admits to some palpitations at home or last few years which felt similar to this. No history of stroke or TIA. She was noted to be mildly hyperthyroid on blood work. REVIEW OF SYSTEMS At the time of my exam: CONSTITUTIONAL: Denies fever or chills. CARDIOVASCULAR: +chest pain, +shortness of breath, no orthopnea, PND +palpitations. RESPIRATORY: Denies cough. GASTROINTESTINAL: Denies abdominal pain, diarrhea, constipation, nausea or vomiting. MUSCULOSKELETAL: Denies myalgias. NEUROLOGIC: Denies numbness, tingling or weakness. ENDOCRINE: Denies fatigue, weight change, polydipsia or polyurina. GENITOURINARY: Denies burning, hematuria or urgency with micturation. HEMATOLOGIC: Denies history of anemia or bleeding. PHYSICAL EXAMINATION Vital signs reviewed. CONSTITUTIONAL: No apparent distress. HEENT: Head is normocephalic. Pupils are equal, round. Sclerae anicteric. Mucous membranes of the mouth are moist. No JVD. No carotid bruit. CHEST EXAMINATION: Lungs are clear to auscultation. No chest wall tenderness is noted on palpation or with deep breathing. HEART EXAMINATION: Regular rate and rhythm. S1, S2 heard. No murmurs, gallops or rub. ABDOMEN: Soft, nontender. Positive bowel sounds. EXTREMITIES: 2+ peripheral pulses, no lower extremity edema and no calf tenderness. NEUROLOGIC EXAMINATION: Patient is awake, alert and oriented x3. Assessment 1. Severe mitral regurgitation status post mitral valve repair 2. Paroxysmal atrial fibrillation, likely postoperative however additional history of similar palpitations in the past 3. Hypertension 4. Hypothyroidism currently hyperthyroid likely iatrogenic 5. Palpitations Plan: Patient has been doing well after surgery. She did have an episode of atrial fibrillation likely related to postoperative A. fib however also has history of palpitations. This is likely exacerbated by hyperthyroid state. Continue with current regimen. Continue amiodarone. Continue supportive care. Past Medical History Past Medical History: GERD/Reflux, Hypertension, Mitral Valve Prolapse (MVP), Osteoarthritis (OA), Pneumonia, Thyroid Disorder Additional Past Medical History / Comment(s): Mitral valve prolapse, hx. colon polyps, SOB w/exertion although a little better recently, needing knee replacement, past hx. pneumonia 2019, possible sleep apnea History of Any Multi-Drug Resistant Organisms: None Reported Past Surgical History: Appendectomy, Heart Catheterization, Tubal Ligation Additional Past Surgical History / Comment(s): parotid gland tumor removed, colonoscopies, fallopian tubes removed, ovaries removed 2007 Past Anesthesia/Blood Transfusion Reactions: No Reported Reaction, Family History of Problems w/ Anesthesia Additional Past Anesthesia/Blood Transfusion Reaction / Comment(s): 16 y.o. son had some chest pain that was attributed to anesthesia per pt. but he's had further surg. w/no problems Smoking Status: Never smoker - Past Family History Mother Sister(s) Family Medical History: Cancer Additional Family Medical History / Comment(s): mom colon, sister brain & breast cancer Medications and Allergies Home Medications Medication Instructions Recorded Confirmed Type Levothyroxine Sodium [Synthroid] 150 mcg PO DAILY 03/31/17 11/10/21 History Ibuprofen [Advil] 200 - 400 mg PO Q6HR PRN 09/25/18 11/08/21 History ALPRAZolam [Xanax] 0.25 mg PO HS PRN 01/06/20 11/08/21 History Losartan [Cozaar] 50 mg PO DAILY #30 tab 01/08/20 11/08/21 Rx hydroCHLOROthiazide [Hydrodiuril] 12.5 mg PO DAILY #30 cap 01/08/20 11/08/21 Rx Omeprazole [PriLOSEC] 20 mg PO DAILY PRN 11/08/21 11/08/21 History Acetaminophen [Tylenol Arthritis] 650 mg PO Q6H PRN 11/10/21 11/10/21 History Mupirocin [Mupirocin 2%] 1 applic NASAL BID #1 tub 11/10/21 11/10/21 Rx Allergies Allergy/AdvReac Type Severity Reaction Status Date / Time cortisone Allergy Rash/Hives Verified 11/11/21 05:52 hyaluronic acid Allergy Itching Verified 11/11/21 05:52 [From Hyalgan] @injection site hydrocodone AdvReac SHORTNESS Verified 11/11/21 05:52 OF BREATHE propoxyphene napsylate AdvReac SHORTNESS Verified 11/11/21 05:52 [From Darvocet-N] OF BREATHE Physical Exam Vitals: Vital Signs Temp Pulse Resp BP Pulse Ox FiO2 11/12/21 07:00 96 18 93 L 11/12/21 06:00 78 15 87 L 11/12/21 05:00 98.1 F 75 24 93 L 11/12/21 04:00 76 14 98 11/12/21 03:00 72 10 L 93 L 11/12/21 02:00 68 14 94 L 11/12/21 01:00 76 16 138/75 94 L 11/12/21 00:00 75 18 95 11/11/21 23:25 75 15 94 L 11/11/21 23:00 77 13 95 11/11/21 22:00 79 16 95 11/11/21 21:00 82 14 95 11/11/21 20:07 83 11/11/21 20:00 79 19 122/62 97 11/11/21 19:54 79 11/11/21 19:00 78 13 98 11/11/21 18:45 77 8 L 98 11/11/21 18:30 77 12 95 11/11/21 18:15 80 6 L 88 L 11/11/21 18:00 79 6 L 96 11/11/21 17:45 76 16 95 11/11/21 17:30 73 13 95 11/11/21 17:15 75 8 L 94 L 11/11/21 17:00 75 14 95 11/11/21 16:45 75 17 94 L 11/11/21 16:30 74 6 L 98 11/11/21 16:17 72 16 11/11/21 16:15 67 7 L 100 11/11/21 16:08 71 16 11/11/21 16:00 98.1 F 70 6 L 97 11/11/21 15:45 67 15 100 11/11/21 15:30 64 17 100 11/11/21 15:24 50 11/11/21 15:15 65 20 100 11/11/21 15:00 67 20 100 11/11/21 14:50 50 11/11/21 14:45 64 13 100 11/11/21 14:30 63 13 100 11/11/21 14:15 63 12 100 11/11/21 14:00 70 12 100 11/11/21 13:47 70 12 11/11/21 13:45 70 12 100 11/11/21 13:36 70 12 11/11/21 13:30 70 13 100 11/11/21 13:15 70 13 100 11/11/21 13:00 95.9 F L 70 12 100 11/11/21 12:52 60 11/11/21 12:45 69 12 100 11/11/21 12:30 70 9 L 100 11/11/21 12:23 100 11/11/21 12:15 69 8 L 11/11/21 12:13 0 L 11/11/21 12:10 100 Intake and Output 11/11/21 11/12/21 11/12/21 22:59 06:59 14:59 Intake Total 753.035 2039.291 59 Output Total 1215 470 15 Balance -321.743 782.291 44 Intake: IV 322 542 59 Lactated Ringers 1,000 ml 150 400 50 @ 20 mls/hr IV .Q24H [facility] Rx#:[id number] cardiac output 100 70 pressure bags 72 72 9 Intake, IV Titration 451.257 60.291 Amount ACETAMINOPHEN IV (For NPO 100 ) 1,000 mg In Empty Bag 1 bag @ 400 mls/hr IVPB Q6H [facility] Rx#:[id number] Clevidipine Butyrate 25 43.867 53.499 mg In Empty Bag 1 bag @ 1 MG/HR 2 mls/hr IV .Q24H [facility] Rx#:[id number] Insulin Regular 100 unit 4.705 6.792 In Sodium Chloride 0.9% 100 ml @ Per Protocol IV .Q0M [facility] Rx#:[id number] Lactated Ringers 1,000 ml 250 @ 20 mls/hr IV .Q24H [facility] Rx#:[id number] ceFAZolin 2 gm In Sodium 50 Chloride 0.9% 50 ml @ 100 mls/hr IVPB Q8HR [facility] Rx# :[id number] propofoL 1,000 mg In 2.685 Empty Bag 1 bag @ Titrate IV .Q0M [facility] Rx#: [id number] Oral 120 650 Output: Chest Tube Drainage 190 120 0 mediastinal and right 190 120 0 pleural Urine 1025 350 15 Other: Voiding Method Indwelling Catheter Indwelling Catheter Weight 96.4 kg ABP, PAP, CO, CI - Last 8 Hours Arterial Blood Pressure 100/51 Arterial Blood Pressure 121/54 Arterial Blood Pressure 136/54 Arterial Blood Pressure 127/51 Arterial Blood Pressure 117/48 Arterial Blood Pressure 123/50 Arterial Blood Pressure 137/57 Arterial Blood Pressure 131/53 Pulmonary Artery Pressure 31/14 Pulmonary Artery Pressure 31/17 Pulmonary Artery Pressure 34/13 Pulmonary Artery Pressure 34/13 Pulmonary Artery Pressure 31/12 Pulmonary Artery Pressure 31/11 Pulmonary Artery Pressure 36/14 Pulmonary Artery Pressure 31/11 Cardiac Output 5.3 Cardiac Output 4.8 Cardiac Index 2.7 Cardiac Index 2.4 Results 11/12/21 04:15 11/12/21 04:15 Cardiac Enzymes 11/11/21 11/12/21 Range/Units 12:15 04:15 AST 43 H 57 H (14-36) U/L Coagulation 11/11/21 Range/Units 12:15 PT 10.9 (9.0-12.0) sec APTT 24.7 (22.0-30.0) sec CBC 11/11/21 11/11/21 11/11/21 Range/Units 12:15 14:07 18:06 WBC 18.8 H 17.6 H 15.9 H (3.8-10.6) k/uL RBC 3.79 L 3.93 3.83 (3.80-5.40) m/uL Hgb 10.7 L 11.3 L 11.2 L (11.4-16.0) gm/dL Hct 33.9 L 35.5 34.5 (34.0-46.0) % Plt Count 219 262 282 (150-450) k/uL 11/12/21 Range/Units 04:15 WBC 12.3 H (3.8-10.6) k/uL RBC 3.45 L (3.80-5.40) m/uL Hgb 10.0 L (11.4-16.0) gm/dL Hct 30.8 L (34.0-46.0) % Plt Count 241 (150-450) k/uL Comprehensive Metabolic Panel 11/11/21 11/12/21 Range/Units 12:15 04:15 Sodium 137 133 L (137-145) mmol/L Potassium 4.3 4.1 (3.5-5.1) mmol/L Chloride 109 H 105 (98-107) mmol/L Carbon Dioxide 22 25 (22-30) mmol/L BUN 16 14 (7-17) mg/dL Creatinine 0.75 0.67 (0.52-1.04) mg/dL Glucose 112 H 107 H (74-99) mg/dL Calcium 8.2 L 7.6 L (8.4-10.2) mg/dL AST 43 H 57 H (14-36) U/L ALT 18 17 (4-34) U/L Alkaline Phosphatase 50 44 (38-126) U/L Total Protein 5.0 L 5.1 L (6.3-8.2) g/dL Albumin 2.9 L 2.9 L (3.5-5.0) g/dL Current Medications Generic Name Dose Route Start Last Admin Trade Name Freq PRN Reason Stop Dose Admin Acetaminophen 650 mg 11/12/21 07:42 Acetaminophen Tab 325 Mg Tab PO Q4HR PRN Fever and/ or Pain Albuterol/Ipratropium 3 ml 11/11/21 12:17 Ipratropium-Albuterol 3 Ml Neb INHALATION RT-Q2H PRN Shortness Of Breath Or Wheezing Albuterol/Ipratropium 3 ml 11/11/21 20:00 11/11/21 19:54 Ipratropium-Albuterol 3 Ml Neb INHALATION 3 ml RT-QID [facility] Administration Aspirin 325 mg 11/12/21 09:00 Aspirin 325 Mg Tab PO DAILY [facility] Atorvastatin Calcium 40 mg 11/12/21 09:00 Atorvastatin 40 Mg Tab PO DAILY [facility] Benzocaine/Menthol 1 each 11/11/21 12:17 Benzocaine/Menthol Lozeng 1 Each Lozenge MUCOUS MEM Q2H PRN Sore Throat Bisacodyl 10 mg 11/12/21 09:00 Bisacodyl 10 Mg Supp RECTAL DAILY PRN Constipation Clopidogrel Bisulfate 75 mg 11/12/21 09:00 Clopidogrel 75 Mg Tab PO DAILY [facility] Heparin Sodium (Porcine) 5,000 unit 11/11/21 16:00 11/12/21 00:49 Heparin Sodium,Porcine/Pf 5,000 Unit/0.5 Ml Syringe SQ 5,000 unit Q8HR [facility] Administration Hydralazine HCl 10 mg 11/11/21 12:17 Hydralazine Hcl 20 Mg/Ml 1 Ml Vial IVP Q1H PRN Blood Pressure - High Clevidipine 25 mg/ IV Solution 50 mls @ 2 mls/hr 11/11/21 12:17 11/12/21 06:40 IV 0 mg/hr .Q24H [facility] 0 mls/hr Titration Protocol 1 MG/HR Albumin Human 250 ml/ IV 250 mls @ 250 mls/hr 11/11/21 12:17 Solution IVPB 11/13/21 12:18 Q1HR PRN For Volume Protocol Lactated Ringer's 1,000 mls @ 20 mls/hr 11/11/21 12:17 11/11/21 12:43 Lactated Ringers IV 50 mls/hr .Q24H [facility] Administration Amiodarone HCl 150 mg/ 103 mls @ 618 mls/hr 11/11/21 12:17 11/12/21 06:51 Dextrose/Water IV 618 mls/hr .Q10M PRN Administration A.FIB/FLUTTER Protocol Amiodarone HCl 360 mg/ 207.2 mls @ 34.533 mls/hr 11/11/21 12:17 11/12/21 07:01 Dextrose/Water IV 1 mg/min .Q6H PRN 34.533 mls/hr A.FIB/FLUTTER Administration Protocol 1 MG/MIN Amiodarone HCl 450 mg/ 250 mls @ 16.667 mls/hr 11/11/21 12:17 Dextrose/Water IV .Q15H PRN A.FIB/FLUTTER Protocol 0.5 MG/MIN Cefazolin Sodium 2 gm/ Sodium 50 mls @ 100 mls/hr 11/11/21 16:00 11/12/21 00:49 Chloride IVPB 11/12/21 08:29 100 mls/hr Q8HR [facility] Administration Protocol Calcium Gluconate/Sodium 100 mls @ 100 mls/hr 11/11/21 12:17 Chloride 2 gm/ IV Solution IVPB 11/18/21 12:18 ONCE PRN Ionized Calcium less than 4.4 Insulin Human Regular 100 unit 101 mls @ 0 mls/hr 11/11/21 13:00 11/12/21 06:55 / Sodium Chloride IV 2 units/hr .Q0M [facility] 2.02 mls/hr Titration Protocol Per Protocol Ketorolac Tromethamine 15 mg 11/11/21 18:00 11/12/21 05:11 Ketorolac 15 Mg/Ml 1 Ml Vial IVP 11/14/21 13:45 15 mg Q6HR [facility] Administration Magnesium Hydroxide 2,400 mg 11/12/21 09:00 Magnesium Hydroxide 2,400 Mg/10 Ml Cup PO BID PRN Constipation Metoclopramide HCl 10 mg 11/11/21 12:17 11/12/21 07:16 Metoclopramide 5 Mg/Ml 2 Ml Vial IVP 10 mg Q4H PRN Administration Nausea And Vomiting Metoprolol Tartrate 25 mg 11/12/21 21:00 Metoprolol Tartrate 25 Mg Tab PO BID [facility] Miscellaneous Information 1 each 11/11/21 12:17 Potassium Replacement Protocol 1 Each Misc MISCELLANE DAILY PRN Per Protocol Protocol Miscellaneous Information 1 each 11/11/21 12:17 Magnesium Replacement Protocol 1 Each Misc MISCELLANE DAILY PRN Per Protocol Protocol Miscellaneous Information 1 each 11/11/21 12:17 Phosphorus Replacement Protoco 1 Each Misc MISCELLANE DAILY PRN Per Protocol Protocol Mupirocin 1 applic 11/11/21 21:00 11/11/21 21:27 Mupirocin 2% Oint 22 Gm Tube NASAL 11/14/21 21:01 1 applic BID [facility] Administration Ondansetron HCl 4 mg 11/11/21 12:17 Ondansetron 4 Mg/2 Ml Vial IVP Q6HR PRN Nausea And Vomiting Oxycodone HCl 10 mg 11/11/21 12:17 11/12/21 04:41 Oxycodone Hcl 5 Mg Tab PO 10 mg Q4H PRN Administration Severe Pain Oxycodone HCl 5 mg 11/11/21 12:17 Oxycodone Hcl 5 Mg Tab PO Q4H PRN Moderate Pain Pantoprazole Sodium 40 mg 11/12/21 09:00 Pantoprazole 40 Mg/10 Ml Vial IVP 11/12/21 10:00 DAILY [facility] Pantoprazole Sodium 40 mg 11/13/21 07:30 Pantoprazole 40 Mg Tablet PO AC-BID [facility] Senna/Docusate Sodium 2 each 11/12/21 21:00 Sennosides-Docusate Sodium 1 Each Tab PO HS [facility] Sodium Chloride 10 ml 11/11/21 21:00 11/11/21 21:27 Sodium Chloride 0.9% Flush 10 Ml Syringe IV 10 ml BID [facility] Administration Intake and Output 11/11/21 11/12/21 11/12/21 22:59 06:59 14:59 Intake Total 794.778 0579.291 59 Output Total 1215 470 15 Balance -321.743 782.291 44 Intake: IV 322 542 59 Lactated Ringers 1,000 ml 150 400 50 @ 20 mls/hr IV .Q24H [facility] Rx#:[id number] cardiac output 100 70 pressure bags 72 72 9 Intake, IV Titration 451.257 60.291 Amount ACETAMINOPHEN IV (For NPO 100 ) 1,000 mg In Empty Bag 1 bag @ 400 mls/hr IVPB Q6H [facility] Rx#:[id number] Clevidipine Butyrate 25 43.867 53.499 mg In Empty Bag 1 bag @ 1 MG/HR 2 mls/hr IV .Q24H [facility] Rx#:[id number] Insulin Regular 100 unit 4.705 6.792 In Sodium Chloride 0.9% 100 ml @ Per Protocol IV .Q0M [facility] Rx#:[id number] Lactated Ringers 1,000 ml 250 @ 20 mls/hr IV .Q24H [facility] Rx#:[id number] ceFAZolin 2 gm In Sodium 50 Chloride 0.9% 50 ml @ 100 mls/hr IVPB Q8HR [facility] Rx# :[id number] propofoL 1,000 mg In 2.685 Empty Bag 1 bag @ Titrate IV .Q0M [facility] Rx#: [id number] Oral 120 650 Output: Chest Tube Drainage 190 120 0 mediastinal and right 190 120 0 pleural Urine 1025 350 15 Other: Voiding Method Indwelling Catheter Indwelling Catheter Weight 96.4 kg 11/12/21 04:15 11/12/21 04:15
--- NOTE | 2021-11-12 08:01 | P.PN ---
Subjective Progress Note Date: 11/12/21 66-year-old female patient, underwent a mitral valve annuloplasty and she is currently postop day #0. The patient was brought into the intensive care unit. Pulmonary critical care services were consulted. I saw the patient immediately after she arrived from the operating room. She was hemodynamically stable on no pressors. The patient was sedated with propofol and the sedation was weaned down the propofol was at the rate of 10 g is particularly per minute. The patient was adequately sedated and the patient was, comfortable, sickle cell mechanical ventilator. The patient was an assist-control mode of mechanical ventilation at the rate of 12 with a tidal volume of 400 and FiO2 of 100% with a PEEP of 10. The FiO2 was up to 60%. Initial blood gases showed a pH of 7.31 with a pCO2 of 47 and pO2 of 207. The patient has chest tubes 1 mediastinal and 1 right pleural. The postop chest x-ray showed no acute abnormalities. No evidence of pneumothorax. ET tube was in a good location. The patient has a Mead-Kathy catheter in the right IJ which is also in a good location. The patient's cardiac rhythm is sinus. The patient has no hemodynamic instability. Pulmonary artery pressures were 35/19. Cardiac output was at 4.3 with an index of 2.2. Urine output was adequate. The blood work showed a white cell, 70.6 with a hemoglobin of 11.3 and a platelet count is 262. Output from the chest tubes are minimal at this point in time. No evidence of any bleeding. 11/12/2021 the patient is postop day #1. She is doing well. She extubated yesterday without any major difficulties and this morning she is on 3 L of oxygen by nasal cannula. The patient is using incentive spirometer, pulling approximately thousand. No respiratory distress. Chest x-ray from today essentially showing postsurgical changes. The patient has a right-sided chest tube, mediastinal chest tube and the Mead-Kathy catheter in place. ET tube is removed. Some atelectatic changes and left lung base. No evidence of any pneumothorax. Output from the chest tubes combined has been around 600 mL since came from the operating room. Earlier this morning, the patient went into atrial fibrillation with rapid ventricular response, and expected outcome of surgery, and the patient was started on amiodarone drip loading and subsequent maintenance will be following. The patient is also on beta blockers in the form of metoprolol and the dose has been increased up to 25 mg by mouth twice a day. No anticoagulants for now. Hemodynamically she is stable. Adequate urine output. White cell count of 12.3 with hemoglobin of 10 and a platelet count of 241. BUN is at 40 with a creatinine of 0.67 and his sodium level is at 133. TSH is at 1.49. Objective - Vital Signs Vital signs: Vital Signs Temp 98.1 F 11/12/21 05:00 Pulse 96 11/12/21 07:00 Resp 18 11/12/21 07:00 BP 138/75 11/12/21 01:00 Pulse Ox 93 L 11/12/21 07:00 FiO2 50 11/11/21 15:24 Intake & Output 11/11/21 11/12/21 11/12/21 18:59 06:59 18:59 Intake Total 406.145 7032.568 59 Output Total 2540 1065 15 Balance -1692.273 593.568 44 Weight 96.4 kg Intake: IV 205 768 59 Lactated Ringers 1,000 ml 550 50 @ 20 mls/hr IV .Q24H YAZAN Rx#:[id number] cardiac output 100 110 pressure bags 54 108 9 Intake, IV Titration 642.727 120.568 Amount ACETAMINOPHEN IV (For NPO 200 ) 1,000 mg In Empty Bag 1 bag @ 400 mls/hr IVPB Q6H YAZAN Rx#:[id number] Clevidipine Butyrate 25 53.600 61.899 mg In Empty Bag 1 bag @ 1 MG/HR 2 mls/hr IV .Q24H YAZAN Rx#:[id number] Insulin Regular 100 unit 2.828 8.669 In Sodium Chloride 0.9% 100 ml @ Per Protocol IV .Q0M YAZAN Rx#:[id number] Lactated Ringers 1,000 ml 300 50 @ 20 mls/hr IV .Q24H YAZAN Rx#:[id number] ceFAZolin 2 gm In Sodium 50 Chloride 0.9% 50 ml @ 100 mls/hr IVPB Q8HR [facility]AZAN Rx# :[id number] propofoL 1,000 mg In 36.299 Empty Bag 1 bag @ Titrate IV .Q0M YAZAN Rx#: [id number] Oral 770 Output: Chest Tube Drainage 150 215 0 mediastinal and right 150 215 0 pleural Urine 1490 850 15 Estimated Blood Loss 900 Other: Voiding Method Indwelling Catheter Indwelling Catheter ABP, PAP, CO, CI - Last Documented Arterial Blood Pressure 100/51 Pulmonary Artery Pressure 31/14 Cardiac Output 5.3 Cardiac Index 2.7 - Exam Intubated on a mechanical ventilator, calm and comfortable, patient is on 3 L of oxygen O2 nasal cannula she is awake and alert and following commands and answer ing questions. Head exam was generally normal. There was no scleral icterus or corneal arcus. Mucous membranes were moist. Neck was supple and without jugular venous distension, thyromegaly, or carotid bruits. Carotids were easily palpable bilaterally. There was no adenopathy. Lungs were clear to auscultation and percussion, and with normal diaphragmatic excursion. No wheezes or rales were noted. The patient has a right pleural and mediastinal chest tube both her mother place. Cardiac exam revealed the PMI to be normally situated and sized. The rhythm is irregular consistent of atrial fibrillation with a controlled rate and no extrasystoles were noted during several minutes of auscultation. The first and second heart sounds were normal and physiologic splitting of the second heart sound was noted. There were no murmurs, rubs, clicks, or gallops. Sternum stable clean and intact with appropriate surgical dressing is in place Abdominal exam revealed normal bowel sounds. The abdomen was soft, non-tender, and without masses, organomegaly, or appreciable enlargement of the abdominal aorta. Examination of the extremities revealed easily palpable radial, femoral and pedal pulses. There was no cyanosis, clubbing or edema. Examination of the skin revealed no evidence of significant rashes, suspicious appearing nevi or other concerning lesions. Neurologic awake and alert and there is no focal neurological deficits. - Labs CBC & Chem 7: 11/12/21 04:15 11/12/21 04:15 Labs: Abnormal Lab Results - Last 24 Hours (Table) 11/08/21 11/11/21 11/11/21 Range/Units 09:09 08:50 09:40 WBC (3.8-10.6) k/uL RBC (3.80-5.40) m/uL Hgb (11.4-16.0) gm/dL Hct (34.0-46.0) % Neutrophils # (1.3-7.7) k/uL Lymphocytes # (1.0-4.8) k/uL ABG pH (7.35-7.45) ABG pCO2 (35-45) mmHg ABG pO2 243 H 246 H (83-108) mmHg ABG Total CO2 (19-24) mmol/L ABG O2 Saturation 99.6 H 99.6 H (94-97) % ABG Hematocrit (34.0-46.0) % ABG Potassium (3.4-4.5) mmol/L ABG Ionized Calcium (4.5-5.3) mg/dL ABG Glucose 104 H (75-99) mg/dL Hemoglobin 10.9 L (11.4-16.0) gm/dL Sodium (137-145) mmol/L Chloride (98-107) mmol/L Glucose (74-99) mg/dL POC Glucose (mg/dL) (75-99) mg/dL Calcium (8.4-10.2) mg/dL Magnesium (1.6-2.3) mg/dL AST (14-36) U/L Total Protein (6.3-8.2) g/dL Albumin (3.5-5.0) g/dL TSH (0.465-4.680) mIU/L Arterial Blood Potassium (3.4-4.5) mmol/L Arterial Blood Glucose 104 H (75-99) mg/dL Crossmatch See Detail 11/11/21 11/11/21 11/11/21 Range/Units 10:06 10:30 11:27 WBC (3.8-10.6) k/uL RBC (3.80-5.40) m/uL Hgb (11.4-16.0) gm/dL Hct (34.0-46.0) % Neutrophils # (1.3-7.7) k/uL Lymphocytes # (1.0-4.8) k/uL ABG pH 7.31 L (7.35-7.45) ABG pCO2 (35-45) mmHg ABG pO2 410 H 349 H 157 H (83-108) mmHg ABG Total CO2 (19-24) mmol/L ABG O2 Saturation 100.0 H 99.8 H 99.2 H (94-97) % ABG Hematocrit 25 L 26 L 31 L (34.0-46.0) % ABG Potassium 5.4 H 5.2 H 4.9 H (3.4-4.5) mmol/L ABG Ionized Calcium 3.8 L 4.1 L (4.5-5.3) mg/dL ABG Glucose 104 H 103 H 121 H (75-99) mg/dL Hemoglobin 8.2 L 8.3 L 9.9 L (11.4-16.0) gm/dL Sodium (137-145) mmol/L Chloride (98-107) mmol/L Glucose (74-99) mg/dL POC Glucose (mg/dL) (75-99) mg/dL Calcium (8.4-10.2) mg/dL Magnesium (1.6-2.3) mg/dL AST (14-36) U/L Total Protein (6.3-8.2) g/dL Albumin (3.5-5.0) g/dL TSH (0.465-4.680) mIU/L Arterial Blood Potassium 5.4 H 5.2 H 4.9 H (3.4-4.5) mmol/L Arterial Blood Glucose 104 H 103 H 121 H (75-99) mg/dL Crossmatch 11/11/21 11/11/21 11/11/21 Range/Units 12:15 12:15 12:18 WBC 18.8 H (3.8-10.6) k/uL RBC 3.79 L (3.80-5.40) m/uL Hgb 10.7 L (11.4-16.0) gm/dL Hct 33.9 L (34.0-46.0) % Neutrophils # 15.9 H (1.3-7.7) k/uL Lymphocytes # (1.0-4.8) k/uL ABG pH (7.35-7.45) ABG pCO2 (35-45) mmHg ABG pO2 (83-108) mmHg ABG Total CO2 (19-24) mmol/L ABG O2 Saturation (94-97) % ABG Hematocrit (34.0-46.0) % ABG Potassium (3.4-4.5) mmol/L ABG Ionized Calcium (4.5-5.3) mg/dL ABG Glucose (75-99) mg/dL Hemoglobin (11.4-16.0) gm/dL Sodium (137-145) mmol/L Chloride 109 H (98-107) mmol/L Glucose 112 H (74-99) mg/dL POC Glucose (mg/dL) 117 H (75-99) mg/dL Calcium 8.2 L (8.4-10.2) mg/dL Magnesium 2.8 H (1.6-2.3) mg/dL AST 43 H (14-36) U/L Total Protein 5.0 L (6.3-8.2) g/dL Albumin 2.9 L (3.5-5.0) g/dL TSH (0.465-4.680) mIU/L Arterial Blood Potassium (3.4-4.5) mmol/L Arterial Blood Glucose (75-99) mg/dL Crossmatch 11/11/21 11/11/21 11/11/21 Range/Units 12:46 13:15 14:07 WBC 17.6 H (3.8-10.6) k/uL RBC (3.80-5.40) m/uL Hgb 11.3 L (11.4-16.0) gm/dL Hct (34.0-46.0) % Neutrophils # 14.9 H (1.3-7.7) k/uL Lymphocytes # (1.0-4.8) k/uL ABG pH 7.32 L (7.35-7.45) ABG pCO2 47 H (35-45) mmHg ABG pO2 207 H (83-108) mmHg ABG Total CO2 26 H (19-24) mmol/L ABG O2 Saturation 99.0 H (94-97) % ABG Hematocrit (34.0-46.0) % ABG Potassium (3.4-4.5) mmol/L ABG Ionized Calcium (4.5-5.3) mg/dL ABG Glucose (75-99) mg/dL Hemoglobin (11.4-16.0) gm/dL Sodium (137-145) mmol/L Chloride (98-107) mmol/L Glucose (74-99) mg/dL POC Glucose (mg/dL) 113 H (75-99) mg/dL Calcium (8.4-10.2) mg/dL Magnesium (1.6-2.3) mg/dL AST (14-36) U/L Total Protein (6.3-8.2) g/dL Albumin (3.5-5.0) g/dL TSH (0.465-4.680) mIU/L Arterial Blood Potassium (3.4-4.5) mmol/L Arterial Blood Glucose (75-99) mg/dL Crossmatch 11/11/21 11/11/21 11/11/21 Range/Units 14:09 15:12 15:51 WBC (3.8-10.6) k/uL RBC (3.80-5.40) m/uL Hgb (11.4-16.0) gm/dL Hct (34.0-46.0) % Neutrophils # (1.3-7.7) k/uL Lymphocytes # (1.0-4.8) k/uL ABG pH 7.33 L (7.35-7.45) ABG pCO2 47 H (35-45) mmHg ABG pO2 141 H (83-108) mmHg ABG Total CO2 26 H (19-24) mmol/L ABG O2 Saturation 98.3 H (94-97) % ABG Hematocrit (34.0-46.0) % ABG Potassium (3.4-4.5) mmol/L ABG Ionized Calcium (4.5-5.3) mg/dL ABG Glucose (75-99) mg/dL Hemoglobin (11.4-16.0) gm/dL Sodium (137-145) mmol/L Chloride (98-107) mmol/L Glucose (74-99) mg/dL POC Glucose (mg/dL) 128 H 130 H (75-99) mg/dL Calcium (8.4-10.2) mg/dL Magnesium (1.6-2.3) mg/dL AST (14-36) U/L Total Protein (6.3-8.2) g/dL Albumin (3.5-5.0) g/dL TSH (0.465-4.680) mIU/L Arterial Blood Potassium (3.4-4.5) mmol/L Arterial Blood Glucose (75-99) mg/dL Crossmatch 11/11/21 11/11/21 11/11/21 Range/Units 16:05 18:02 18:06 WBC 15.9 H (3.8-10.6) k/uL RBC (3.80-5.40) m/uL Hgb 11.2 L (11.4-16.0) gm/dL Hct (34.0-46.0) % Neutrophils # 14.5 H (1.3-7.7) k/uL Lymphocytes # 0.7 L (1.0-4.8) k/uL ABG pH (7.35-7.45) ABG pCO2 (35-45) mmHg ABG pO2 (83-108) mmHg ABG Total CO2 (19-24) mmol/L ABG O2 Saturation (94-97) % ABG Hematocrit (34.0-46.0) % ABG Potassium (3.4-4.5) mmol/L ABG Ionized Calcium (4.5-5.3) mg/dL ABG Glucose (75-99) mg/dL Hemoglobin (11.4-16.0) gm/dL Sodium (137-145) mmol/L Chloride (98-107) mmol/L Glucose (74-99) mg/dL POC Glucose (mg/dL) 140 H 144 H (75-99) mg/dL Calcium (8.4-10.2) mg/dL Magnesium (1.6-2.3) mg/dL AST (14-36) U/L Total Protein (6.3-8.2) g/dL Albumin (3.5-5.0) g/dL TSH (0.465-4.680) mIU/L Arterial Blood Potassium (3.4-4.5) mmol/L Arterial Blood Glucose (75-99) mg/dL Crossmatch 11/11/21 11/11/21 11/11/21 Range/Units 19:03 19:50 21:12 WBC (3.8-10.6) k/uL RBC (3.80-5.40) m/uL Hgb (11.4-16.0) gm/dL Hct (34.0-46.0) % Neutrophils # (1.3-7.7) k/uL Lymphocytes # (1.0-4.8) k/uL ABG pH (7.35-7.45) ABG pCO2 (35-45) mmHg ABG pO2 (83-108) mmHg ABG Total CO2 (19-24) mmol/L ABG O2 Saturation (94-97) % ABG Hematocrit (34.0-46.0) % ABG Potassium (3.4-4.5) mmol/L ABG Ionized Calcium (4.5-5.3) mg/dL ABG Glucose (75-99) mg/dL Hemoglobin (11.4-16.0) gm/dL Sodium (137-145) mmol/L Chloride (98-107) mmol/L Glucose (74-99) mg/dL POC Glucose (mg/dL) 126 H 130 H 129 H (75-99) mg/dL Calcium (8.4-10.2) mg/dL Magnesium (1.6-2.3) mg/dL AST (14-36) U/L Total Protein (6.3-8.2) g/dL Albumin (3.5-5.0) g/dL TSH (0.465-4.680) mIU/L Arterial Blood Potassium (3.4-4.5) mmol/L Arterial Blood Glucose (75-99) mg/dL Crossmatch 11/11/21 11/11/21 11/12/21 Range/Units 22:12 23:02 00:14 WBC (3.8-10.6) k/uL RBC (3.80-5.40) m/uL Hgb (11.4-16.0) gm/dL Hct (34.0-46.0) % Neutrophils # (1.3-7.7) k/uL Lymphocytes # (1.0-4.8) k/uL ABG pH (7.35-7.45) ABG pCO2 (35-45) mmHg ABG pO2 (83-108) mmHg ABG Total CO2 (19-24) mmol/L ABG O2 Saturation (94-97) % ABG Hematocrit (34.0-46.0) % ABG Potassium (3.4-4.5) mmol/L ABG Ionized Calcium (4.5-5.3) mg/dL ABG Glucose (75-99) mg/dL Hemoglobin (11.4-16.0) gm/dL Sodium (137-145) mmol/L Chloride (98-107) mmol/L Glucose (74-99) mg/dL POC Glucose (mg/dL) 125 H 122 H 122 H (75-99) mg/dL Calcium (8.4-10.2) mg/dL Magnesium (1.6-2.3) mg/dL AST (14-36) U/L Total Protein (6.3-8.2) g/dL Albumin (3.5-5.0) g/dL TSH (0.465-4.680) mIU/L Arterial Blood Potassium (3.4-4.5) mmol/L Arterial Blood Glucose (75-99) mg/dL Crossmatch 11/12/21 11/12/21 11/12/21 Range/Units 01:05 02:05 03:02 WBC (3.8-10.6) k/uL RBC (3.80-5.40) m/uL Hgb (11.4-16.0) gm/dL Hct (34.0-46.0) % Neutrophils # (1.3-7.7) k/uL Lymphocytes # (1.0-4.8) k/uL ABG pH (7.35-7.45) ABG pCO2 (35-45) mmHg ABG pO2 (83-108) mmHg ABG Total CO2 (19-24) mmol/L ABG O2 Saturation (94-97) % ABG Hematocrit (34.0-46.0) % ABG Potassium (3.4-4.5) mmol/L ABG Ionized Calcium (4.5-5.3) mg/dL ABG Glucose (75-99) mg/dL Hemoglobin (11.4-16.0) gm/dL Sodium (137-145) mmol/L Chloride (98-107) mmol/L Glucose (74-99) mg/dL POC Glucose (mg/dL) 118 H 122 H 122 H (75-99) mg/dL Calcium (8.4-10.2) mg/dL Magnesium (1.6-2.3) mg/dL AST (14-36) U/L Total Protein (6.3-8.2) g/dL Albumin (3.5-5.0) g/dL TSH (0.465-4.680) mIU/L Arterial Blood Potassium (3.4-4.5) mmol/L Arterial Blood Glucose (75-99) mg/dL Crossmatch 11/12/21 11/12/21 11/12/21 Range/Units 04:00 04:15 04:15 WBC 12.3 H (3.8-10.6) k/uL RBC 3.45 L (3.80-5.40) m/uL Hgb 10.0 L (11.4-16.0) gm/dL Hct 30.8 L (34.0-46.0) % Neutrophils # 10.1 H (1.3-7.7) k/uL Lymphocytes # (1.0-4.8) k/uL ABG pH (7.35-7.45) ABG pCO2 (35-45) mmHg ABG pO2 (83-108) mmHg ABG Total CO2 (19-24) mmol/L ABG O2 Saturation (94-97) % ABG Hematocrit (34.0-46.0) % ABG Potassium (3.4-4.5) mmol/L ABG Ionized Calcium (4.5-5.3) mg/dL ABG Glucose (75-99) mg/dL Hemoglobin (11.4-16.0) gm/dL Sodium 133 L (137-145) mmol/L Chloride (98-107) mmol/L Glucose 107 H (74-99) mg/dL POC Glucose (mg/dL) 131 H (75-99) mg/dL Calcium 7.6 L (8.4-10.2) mg/dL Magnesium (1.6-2.3) mg/dL AST 57 H (14-36) U/L Total Protein 5.1 L (6.3-8.2) g/dL Albumin 2.9 L (3.5-5.0) g/dL TSH 0.062 L (0.465-4.680) mIU/L Arterial Blood Potassium (3.4-4.5) mmol/L Arterial Blood Glucose (75-99) mg/dL Crossmatch 11/12/21 11/12/21 11/12/21 Range/Units 05:17 06:02 06:55 WBC (3.8-10.6) k/uL RBC (3.80-5.40) m/uL Hgb (11.4-16.0) gm/dL Hct (34.0-46.0) % Neutrophils # (1.3-7.7) k/uL Lymphocytes # (1.0-4.8) k/uL ABG pH (7.35-7.45) ABG pCO2 (35-45) mmHg ABG pO2 (83-108) mmHg ABG Total CO2 (19-24) mmol/L ABG O2 Saturation (94-97) % ABG Hematocrit (34.0-46.0) % ABG Potassium (3.4-4.5) mmol/L ABG Ionized Calcium (4.5-5.3) mg/dL ABG Glucose (75-99) mg/dL Hemoglobin (11.4-16.0) gm/dL Sodium (137-145) mmol/L Chloride (98-107) mmol/L Glucose (74-99) mg/dL POC Glucose (mg/dL) 111 H 117 H 170 H (75-99) mg/dL Calcium (8.4-10.2) mg/dL Magnesium (1.6-2.3) mg/dL AST (14-36) U/L Total Protein (6.3-8.2) g/dL Albumin (3.5-5.0) g/dL TSH (0.465-4.680) mIU/L Arterial Blood Potassium (3.4-4.5) mmol/L Arterial Blood Glucose (75-99) mg/dL Crossmatch Assessment and Plan Plan: Mitral valve annuloplasty, surgery was done for severe symptomatically mitral regurgitation the patient is postop day #1. The patient is currently hemodynamically stable on no pressors. Adequate cardiac output. Adequate hemodynamics. The patient remains hemodynamically stable on the first day postop. The patient is doing well. She did go into atrial fibrillation and expected outcome of surgery New onset A. fib expected outcome of surgery with a controlled rate currently on amiodarone loading. No anticoagulants. Hemodynamically stable. Post thoracotomy, extubated and the patient currently has right pleural and mediastinal chest tube in place. No evidence of any pneumothorax. Currently on 3 L of oxygen by nasal cannula. Hypothyroidism Hypertension Colonic polyps Chronic anxiety Plan Currently on 3 L O2 nasal cannula, continue using incentive spirometer Chest x-ray was reviewed Amiodarone loading and subsequent maintenance Anticoagulation is atrial fibrillation continues to be persistent Mead-Kathy catheter to be removed today Rest of the blood work is all within normal limits Advance diet Adequate pain control Insulin drip at 2 units an hour We'll continue to follow.
[2021-11-12 08:16] LABS: Glucose,Whole Blood 119 mg/dL (75-99)
[2021-11-12] MEDS: ATORVASTATIN 40 MG TAB PO SCH (08:18)
[2021-11-12] MEDS: ASPIRIN 325 MG TAB PO SCH (08:18)
[2021-11-12] MEDS: CLOPIDOGREL 75 MG TAB PO SCH (08:18)
[2021-11-12] MEDS: MUPIROCIN 2% OINT 22 GM TUBE NASAL SCH ×2 (08:19→20:25)
--- NOTE | 2021-11-12 08:42 | P.PN ---
Subjective Progress Note Date: 11/12/21 Principal diagnosis: Severe mitral regurgitation with dilated mitral annulus. Previous medical history of hypertension, hypothyroid, remote history of pneumonia, occasional EtOH use, never smoker, family history of premature coronary artery disease- father with first RI at 42 years old, from [place] at 57 years old. Vaccinated against Covid. Preoperative nasal swab positive for MSSA POD #1 mitral valve repair with a #28 mm [employer]bo[employer] AnnuloFlex band, clip ligation of the left atrial appendage with a 35 mm AtriClip and intraoperative transesophageal echocardiogram Postoperative acute blood loss anemia, expected given hemodilution and cardiopulmonary bypass pump Atrial fibrillation, known common occurrence after open heart surgery The patient was seen and examined sitting up in a recliner this morning in the intensive care unit in no acute distress. She was successfully extubated yesterday afternoon at 16:02. She is currently in sinus rhythm although she did go into rapid atrial fibrillation this morning which was treated with IV amiodarone, denies shortness of breath. She does complain of postsurgical chest pain but states it is controlled on current medication regimen. Hemodynamically stable currently, she was on Cleviprex for blood pressure until early this morning. Right internal jugular [place]/Cordis, right radial arterial line, mediastinal/right pleural chest tubes all remain. Objective - Vital Signs Vital signs: Vital Signs Temp 98.1 F 11/12/21 05:00 Pulse 96 11/12/21 07:00 Resp 18 11/12/21 07:00 BP 138/75 11/12/21 01:00 Pulse Ox 93 L 11/12/21 07:00 FiO2 50 11/11/21 15:24 Intake & Output 11/11/21 11/12/21 11/12/21 18:59 06:59 18:59 Intake Total 497.399 4859.568 61.727 Output Total 2540 1065 15 Balance -1692.273 593.568 46.727 Weight 96.4 kg Intake: IV 205 768 59 Lactated Ringers 1,000 ml 550 50 @ 20 mls/hr IV .Q24H [facility] Rx#:[id number] cardiac output 100 110 pressure bags 54 108 9 Intake, IV Titration 642.727 120.568 2.727 Amount ACETAMINOPHEN IV (For NPO 200 ) 1,000 mg In Empty Bag 1 bag @ 400 mls/hr IVPB Q6H [facility] Rx#:[id number] Clevidipine Butyrate 25 53.600 61.899 mg In Empty Bag 1 bag @ 1 MG/HR 2 mls/hr IV .Q24H [facility] Rx#:[id number] Insulin Regular 100 unit 2.828 8.669 2.727 In Sodium Chloride 0.9% 100 ml @ Per Protocol IV .Q0M [facility] Rx#:[id number] Lactated Ringers 1,000 ml 300 50 @ 20 mls/hr IV .Q24H [facility] Rx#:[id number] ceFAZolin 2 gm In Sodium 50 Chloride 0.9% 50 ml @ 100 mls/hr IVPB Q8HR [facility] Rx# :[id number] propofoL 1,000 mg In 36.299 Empty Bag 1 bag @ Titrate IV .Q0M [facility] Rx#: [id number] Oral 770 Output: Chest Tube Drainage 150 215 0 mediastinal and right 150 215 0 pleural Urine 1490 850 15 Estimated Blood Loss 900 Other: Voiding Method Indwelling Catheter Indwelling Catheter ABP, PAP, CO, CI - Last Documented Arterial Blood Pressure 100/51 Pulmonary Artery Pressure 31/14 Cardiac Output 5.3 Cardiac Index 2.7 - Exam CONSTITUTIONAL: Appears comfortable, cooperative, no acute distress RESPIRATORY: Lungs sounds diminished bilaterally. Respirations even, nonlabored. Currently on 3 L nasal cannula with oxygen saturation 96%. Able to achieve 1000 mL on incentive spirometry. Strong cough. CARDIOVASCULAR: S1, S2 present. Regular rate and rhythm, sinus rhythm on telemetry currently, was in rapid atrial fibrillation this morning. Sternum stable. Palpable peripheral pulses bilaterally. Trace bilateral lower extremity edema present. No calf pain or tenderness noted. Heart hugger in place with patient demonstrating appropriate use. Antiembolism stockings, SCDs present. GASTROINTESTINAL: Abdomen soft, nontender, nondistended. Hypoactive bowel sounds present 4 quadrants. Tolerating clear liquid. Negative flatus GENITOURINARY: Sanchez present draining clear, yellow urine. Output overnight 30-60 mL per hour INTEGUMENTARY: Skin is warm and dry with evidence of good perfusion. Anterior chest incision well approximated and covered with dry intact dressing NEUROLOGIC: Cranial nerves II through XII intact MUSKULOSKELETAL: Able to move all extremities, strength equal bilaterally PSYCHIATRIC: Alert and oriented to person place and time, appropriate affect, intact judgment and insight INVASIVE LINES AND TUBES: Mediastinal/right pleural chest tubes present and connected to wall suction, no air leaks present, 120 mL serosanguineous drainage overnight, 520 mL since surgery. A/V epicardial pacemaker wires present, connected to generator, AAI mode with backup rate 50 bpm. Right internal jugular [place]/Cordis, right radial arterial line present. Last CO/CI 5.3/2.7, PA 31/17, CVP 6. - Allied health notes Allied health notes reviewed: nursing - Labs CBC & Chem 7: 11/12/21 04:15 11/12/21 04:15 Labs: Abnormal Lab Results - Last 24 Hours (Table) 11/08/21 11/11/21 11/11/21 Range/Units 09:09 08:50 09:40 WBC (3.8-10.6) k/uL RBC (3.80-5.40) m/uL Hgb (11.4-16.0) gm/dL Hct (34.0-46.0) % Neutrophils # (1.3-7.7) k/uL Lymphocytes # (1.0-4.8) k/uL ABG pH (7.35-7.45) ABG pCO2 (35-45) mmHg ABG pO2 243 H 246 H (83-108) mmHg ABG Total CO2 (19-24) mmol/L ABG O2 Saturation 99.6 H 99.6 H (94-97) % ABG Hematocrit (34.0-46.0) % ABG Potassium (3.4-4.5) mmol/L ABG Ionized Calcium (4.5-5.3) mg/dL ABG Glucose 104 H (75-99) mg/dL Hemoglobin 10.9 L (11.4-16.0) gm/dL Sodium (137-145) mmol/L Chloride (98-107) mmol/L Glucose (74-99) mg/dL POC Glucose (mg/dL) (75-99) mg/dL Calcium (8.4-10.2) mg/dL Magnesium (1.6-2.3) mg/dL AST (14-36) U/L Total Protein (6.3-8.2) g/dL Albumin (3.5-5.0) g/dL TSH (0.465-4.680) mIU/L Arterial Blood Potassium (3.4-4.5) mmol/L Arterial Blood Glucose 104 H (75-99) mg/dL Crossmatch See Detail 11/11/21 11/11/21 11/11/21 Range/Units 10:06 10:30 11:27 WBC (3.8-10.6) k/uL RBC (3.80-5.40) m/uL Hgb (11.4-16.0) gm/dL Hct (34.0-46.0) % Neutrophils # (1.3-7.7) k/uL Lymphocytes # (1.0-4.8) k/uL ABG pH 7.31 L (7.35-7.45) ABG pCO2 (35-45) mmHg ABG pO2 410 H 349 H 157 H (83-108) mmHg ABG Total CO2 (19-24) mmol/L ABG O2 Saturation 100.0 H 99.8 H 99.2 H (94-97) % ABG Hematocrit 25 L 26 L 31 L (34.0-46.0) % ABG Potassium 5.4 H 5.2 H 4.9 H (3.4-4.5) mmol/L ABG Ionized Calcium 3.8 L 4.1 L (4.5-5.3) mg/dL ABG Glucose 104 H 103 H 121 H (75-99) mg/dL Hemoglobin 8.2 L 8.3 L 9.9 L (11.4-16.0) gm/dL Sodium (137-145) mmol/L Chloride (98-107) mmol/L Glucose (74-99) mg/dL POC Glucose (mg/dL) (75-99) mg/dL Calcium (8.4-10.2) mg/dL Magnesium (1.6-2.3) mg/dL AST (14-36) U/L Total Protein (6.3-8.2) g/dL Albumin (3.5-5.0) g/dL TSH (0.465-4.680) mIU/L Arterial Blood Potassium 5.4 H 5.2 H 4.9 H (3.4-4.5) mmol/L Arterial Blood Glucose 104 H 103 H 121 H (75-99) mg/dL Crossmatch 0511/11/21 11/11/21 Range/Units 12:15 12:15 12:18 WBC 18.8 H (3.8-10.6) k/uL RBC 3.79 L (3.80-5.40) m/uL Hgb 10.7 L (11.4-16.0) gm/dL Hct 33.9 L (34.0-46.0) % Neutrophils # 15.9 H (1.3-7.7) k/uL Lymphocytes # (1.0-4.8) k/uL ABG pH (7.35-7.45) ABG pCO2 (35-45) mmHg ABG pO2 (83-108) mmHg ABG Total CO2 (19-24) mmol/L ABG O2 Saturation (94-97) % ABG Hematocrit (34.0-46.0) % ABG Potassium (3.4-4.5) mmol/L ABG Ionized Calcium (4.5-5.3) mg/dL ABG Glucose (75-99) mg/dL Hemoglobin (11.4-16.0) gm/dL Sodium (137-145) mmol/L Chloride 109 H (98-107) mmol/L Glucose 112 H (74-99) mg/dL POC Glucose (mg/dL) 117 H (75-99) mg/dL Calcium 8.2 L (8.4-10.2) mg/dL Magnesium 2.8 H (1.6-2.3) mg/dL AST 43 H (14-36) U/L Total Protein 5.0 L (6.3-8.2) g/dL Albumin 2.9 L (3.5-5.0) g/dL TSH (0.465-4.680) mIU/L Arterial Blood Potassium (3.4-4.5) mmol/L Arterial Blood Glucose (75-99) mg/dL Crossmatch 11/11/21 11/11/21 11/11/21 Range/Units 12:46 13:15 14:07 WBC 17.6 H (3.8-10.6) k/uL RBC (3.80-5.40) m/uL Hgb 11.3 L (11.4-16.0) gm/dL Hct (34.0-46.0) % Neutrophils # 14.9 H (1.3-7.7) k/uL Lymphocytes # (1.0-4.8) k/uL ABG pH 7.32 L (7.35-7.45) ABG pCO2 47 H (35-45) mmHg ABG pO2 207 H (83-108) mmHg ABG Total CO2 26 H (19-24) mmol/L ABG O2 Saturation 99.0 H (94-97) % ABG Hematocrit (34.0-46.0) % ABG Potassium (3.4-4.5) mmol/L ABG Ionized Calcium (4.5-5.3) mg/dL ABG Glucose (75-99) mg/dL Hemoglobin (11.4-16.0) gm/dL Sodium (137-145) mmol/L Chloride (98-107) mmol/L Glucose (74-99) mg/dL POC Glucose (mg/dL) 113 H (75-99) mg/dL Calcium (8.4-10.2) mg/dL Magnesium (1.6-2.3) mg/dL AST (14-36) U/L Total Protein (6.3-8.2) g/dL Albumin (3.5-5.0) g/dL TSH (0.465-4.680) mIU/L Arterial Blood Potassium (3.4-4.5) mmol/L Arterial Blood Glucose (75-99) mg/dL Crossmatch 11/11/21 11/11/21 11/11/21 Range/Units 14:09 15:12 15:51 WBC (3.8-10.6) k/uL RBC (3.80-5.40) m/uL Hgb (11.4-16.0) gm/dL Hct (34.0-46.0) % Neutrophils # (1.3-7.7) k/uL Lymphocytes # (1.0-4.8) k/uL ABG pH 7.33 L (7.35-7.45) ABG pCO2 47 H (35-45) mmHg ABG pO2 141 H (83-108) mmHg ABG Total CO2 26 H (19-24) mmol/L ABG O2 Saturation 98.3 H (94-97) % ABG Hematocrit (34.0-46.0) % ABG Potassium (3.4-4.5) mmol/L ABG Ionized Calcium (4.5-5.3) mg/dL ABG Glucose (75-99) mg/dL Hemoglobin (11.4-16.0) gm/dL Sodium (137-145) mmol/L Chloride (98-107) mmol/L Glucose (74-99) mg/dL POC Glucose (mg/dL) 128 H 130 H (75-99) mg/dL Calcium (8.4-10.2) mg/dL Magnesium (1.6-2.3) mg/dL AST (14-36) U/L Total Protein (6.3-8.2) g/dL Albumin (3.5-5.0) g/dL TSH (0.465-4.680) mIU/L Arterial Blood Potassium (3.4-4.5) mmol/L Arterial Blood Glucose (75-99) mg/dL Crossmatch 11/11/21 11/11/21 11/11/21 Range/Units 16:05 18:02 18:06 WBC 15.9 H (3.8-10.6) k/uL RBC (3.80-5.40) m/uL Hgb 11.2 L (11.4-16.0) gm/dL Hct (34.0-46.0) % Neutrophils # 14.5 H (1.3-7.7) k/uL Lymphocytes # 0.7 L (1.0-4.8) k/uL ABG pH (7.35-7.45) ABG pCO2 (35-45) mmHg ABG pO2 (83-108) mmHg ABG Total CO2 (19-24) mmol/L ABG O2 Saturation (94-97) % ABG Hematocrit (34.0-46.0) % ABG Potassium (3.4-4.5) mmol/L ABG Ionized Calcium (4.5-5.3) mg/dL ABG Glucose (75-99) mg/dL Hemoglobin (11.4-16.0) gm/dL Sodium (137-145) mmol/L Chloride (98-107) mmol/L Glucose (74-99) mg/dL POC Glucose (mg/dL) 140 H 144 H (75-99) mg/dL Calcium (8.4-10.2) mg/dL Magnesium (1.6-2.3) mg/dL AST (14-36) U/L Total Protein (6.3-8.2) g/dL Albumin (3.5-5.0) g/dL TSH (0.465-4.680) mIU/L Arterial Blood Potassium (3.4-4.5) mmol/L Arterial Blood Glucose (75-99) mg/dL Crossmatch 11/11/21 11/11/21 11/11/21 Range/Units 19:03 19:50 21:12 WBC (3.8-10.6) k/uL RBC (3.80-5.40) m/uL Hgb (11.4-16.0) gm/dL Hct (34.0-46.0) % Neutrophils # (1.3-7.7) k/uL Lymphocytes # (1.0-4.8) k/uL ABG pH (7.35-7.45) ABG pCO2 (35-45) mmHg ABG pO2 (83-108) mmHg ABG Total CO2 (19-24) mmol/L ABG O2 Saturation (94-97) % ABG Hematocrit (34.0-46.0) % ABG Potassium (3.4-4.5) mmol/L ABG Ionized Calcium (4.5-5.3) mg/dL ABG Glucose (75-99) mg/dL Hemoglobin (11.4-16.0) gm/dL Sodium (137-145) mmol/L Chloride (98-107) mmol/L Glucose (74-99) mg/dL POC Glucose (mg/dL) 126 H 130 H 129 H (75-99) mg/dL Calcium (8.4-10.2) mg/dL Magnesium (1.6-2.3) mg/dL AST (14-36) U/L Total Protein (6.3-8.2) g/dL Albumin (3.5-5.0) g/dL TSH (0.465-4.680) mIU/L Arterial Blood Potassium (3.4-4.5) mmol/L Arterial Blood Glucose (75-99) mg/dL Crossmatch 11/11/21 11/11/21 11/12/21 Range/Units 22:12 23:02 00:14 WBC (3.8-10.6) k/uL RBC (3.80-5.40) m/uL Hgb (11.4-16.0) gm/dL Hct (34.0-46.0) % Neutrophils # (1.3-7.7) k/uL Lymphocytes # (1.0-4.8) k/uL ABG pH (7.35-7.45) ABG pCO2 (35-45) mmHg ABG pO2 (83-108) mmHg ABG Total CO2 (19-24) mmol/L ABG O2 Saturation (94-97) % ABG Hematocrit (34.0-46.0) % ABG Potassium (3.4-4.5) mmol/L ABG Ionized Calcium (4.5-5.3) mg/dL ABG Glucose (75-99) mg/dL Hemoglobin (11.4-16.0) gm/dL Sodium (137-145) mmol/L Chloride (98-107) mmol/L Glucose (74-99) mg/dL POC Glucose (mg/dL) 125 H 122 H 122 H (75-99) mg/dL Calcium (8.4-10.2) mg/dL Magnesium (1.6-2.3) mg/dL AST (14-36) U/L Total Protein (6.3-8.2) g/dL Albumin (3.5-5.0) g/dL TSH (0.465-4.680) mIU/L Arterial Blood Potassium (3.4-4.5) mmol/L Arterial Blood Glucose (75-99) mg/dL Crossmatch 11/12/21 11/12/21 11/12/21 Range/Units 01:05 02:05 03:02 WBC (3.8-10.6) k/uL RBC (3.80-5.40) m/uL Hgb (11.4-16.0) gm/dL Hct (34.0-46.0) % Neutrophils # (1.3-7.7) k/uL Lymphocytes # (1.0-4.8) k/uL ABG pH (7.35-7.45) ABG pCO2 (35-45) mmHg ABG pO2 (83-108) mmHg ABG Total CO2 (19-24) mmol/L ABG O2 Saturation (94-97) % ABG Hematocrit (34.0-46.0) % ABG Potassium (3.4-4.5) mmol/L ABG Ionized Calcium (4.5-5.3) mg/dL ABG Glucose (75-99) mg/dL Hemoglobin (11.4-16.0) gm/dL Sodium (137-145) mmol/L Chloride (98-107) mmol/L Glucose (74-99) mg/dL POC Glucose (mg/dL) 118 H 122 H 122 H (75-99) mg/dL Calcium (8.4-10.2) mg/dL Magnesium (1.6-2.3) mg/dL AST (14-36) U/L Total Protein (6.3-8.2) g/dL Albumin (3.5-5.0) g/dL TSH (0.465-4.680) mIU/L Arterial Blood Potassium (3.4-4.5) mmol/L Arterial Blood Glucose (75-99) mg/dL Crossmatch 11/12/21 11/12/21 11/12/21 Range/Units 04:00 04:15 04:15 WBC 12.3 H (3.8-10.6) k/uL RBC 3.45 L (3.80-5.40) m/uL Hgb 10.0 L (11.4-16.0) gm/dL Hct 30.8 L (34.0-46.0) % Neutrophils # 10.1 H (1.3-7.7) k/uL Lymphocytes # (1.0-4.8) k/uL ABG pH (7.35-7.45) ABG pCO2 (35-45) mmHg ABG pO2 (83-108) mmHg ABG Total CO2 (19-24) mmol/L ABG O2 Saturation (94-97) % ABG Hematocrit (34.0-46.0) % ABG Potassium (3.4-4.5) mmol/L ABG Ionized Calcium (4.5-5.3) mg/dL ABG Glucose (75-99) mg/dL Hemoglobin (11.4-16.0) gm/dL Sodium 133 L (137-145) mmol/L Chloride (98-107) mmol/L Glucose 107 H (74-99) mg/dL POC Glucose (mg/dL) 131 H (75-99) mg/dL Calcium 7.6 L (8.4-10.2) mg/dL Magnesium (1.6-2.3) mg/dL AST 57 H (14-36) U/L Total Protein 5.1 L (6.3-8.2) g/dL Albumin 2.9 L (3.5-5.0) g/dL TSH 0.062 L (0.465-4.680) mIU/L Arterial Blood Potassium (3.4-4.5) mmol/L Arterial Blood Glucose (75-99) mg/dL Crossmatch 11/12/21 11/12/21 11/12/21 Range/Units 05:17 06:02 06:55 WBC (3.8-10.6) k/uL RBC (3.80-5.40) m/uL Hgb (11.4-16.0) gm/dL Hct (34.0-46.0) % Neutrophils # (1.3-7.7) k/uL Lymphocytes # (1.0-4.8) k/uL ABG pH (7.35-7.45) ABG pCO2 (35-45) mmHg ABG pO2 (83-108) mmHg ABG Total CO2 (19-24) mmol/L ABG O2 Saturation (94-97) % ABG Hematocrit (34.0-46.0) % ABG Potassium (3.4-4.5) mmol/L ABG Ionized Calcium (4.5-5.3) mg/dL ABG Glucose (75-99) mg/dL Hemoglobin (11.4-16.0) gm/dL Sodium (137-145) mmol/L Chloride (98-107) mmol/L Glucose (74-99) mg/dL POC Glucose (mg/dL) 111 H 117 H 170 H (75-99) mg/dL Calcium (8.4-10.2) mg/dL Magnesium (1.6-2.3) mg/dL AST (14-36) U/L Total Protein (6.3-8.2) g/dL Albumin (3.5-5.0) g/dL TSH (0.465-4.680) mIU/L Arterial Blood Potassium (3.4-4.5) mmol/L Arterial Blood Glucose (75-99) mg/dL Crossmatch 11/12/21 Range/Units 08:15 WBC (3.8-10.6) k/uL RBC (3.80-5.40) m/uL Hgb (11.4-16.0) gm/dL Hct (34.0-46.0) % Neutrophils # (1.3-7.7) k/uL Lymphocytes # (1.0-4.8) k/uL ABG pH (7.35-7.45) ABG pCO2 (35-45) mmHg ABG pO2 (83-108) mmHg ABG Total CO2 (19-24) mmol/L ABG O2 Saturation (94-97) % ABG Hematocrit (34.0-46.0) % ABG Potassium (3.4-4.5) mmol/L ABG Ionized Calcium (4.5-5.3) mg/dL ABG Glucose (75-99) mg/dL Hemoglobin (11.4-16.0) gm/dL Sodium (137-145) mmol/L Chloride (98-107) mmol/L Glucose (74-99) mg/dL POC Glucose (mg/dL) 119 H (75-99) mg/dL Calcium (8.4-10.2) mg/dL Magnesium (1.6-2.3) mg/dL AST (14-36) U/L Total Protein (6.3-8.2) g/dL Albumin (3.5-5.0) g/dL TSH (0.465-4.680) mIU/L Arterial Blood Potassium (3.4-4.5) mmol/L Arterial Blood Glucose (75-99) mg/dL Crossmatch - Imaging and Cardiology Chest x-ray: image reviewed Assessment and Plan Assessment: 1. Severe mitral regurgitation with dilated mitral annulus, status post mitral valve repair 2. Hypertension 3. History of hypothyroid, currently hyperthyroid 4. Remote history of pneumonia 5. Occasional EtOH use, no history of withdrawal 6. Never smoker, preoperative FEV1 111% of predicted 7. Family history of premature coronary artery disease-father with first [place] at 42 years old, from [place] at 55 years old 8. Vaccinated against Covid 9. Preoperative nasal swab positive for MSSA, treated with mupirocin 10. Postoperative acute blood loss anemia, expected 11. Atrial fibrillation, known common occurrence after open heart surgery, status post ligation of the left atrial appendage Plan: 1. Continue aspirin, statin, beta jamee therapy. Will increase beta jamee therapy as tolerated, increase to 25 mg twice daily today 2. Continue amiodarone for A. fib prophylaxis, will transition to oral amioda savage. No anticoagulation unless in A. fib greater than 24 hours 3. Wean O2 as tolerated. Encourage incentive spirometry is 10 times every hour while awake. Bronchodilators per pulmonology 4. Increase activity, ambulate as tolerated. PT/OT/cardiac rehab consulted 5. Will monitor daily labs and x-rays. Electrolyte replacement per protocol 6. GI/DVT prophylaxis 7. Pain control with current medication regimen 8. Insulin management per primary care service. Patient is not diabetic, hemoglobin A1c 5.7% 9. Continue mediastinal/right pleural chest tube for another 24 hours 10. Discontinue [place]. Connect Cordis to continuous CVP monitoring 11. Continue Sanchez for another 24 hours for strict accurate intake and output. Daily weights 12. Continue to hold Synthroid for now. Management per primary care 13. More recommendations to follow as patient progresses
--- NOTE | 2021-11-12 08:44 | XR ---
EXAMINATION TYPE: XR chest 1V portable DATE OF EXAM: 11/12/2021 COMPARISON: 11/11/2021 INDICATION: Postop cardiac surgery TECHNIQUE: Single frontal view of the chest is obtained. FINDINGS: The heart size is borderline prominent. The pulmonary vasculature is normal. The lungs are clear. Endotracheal tube and nasogastric tube is been removed. [place] catheter on the right has the tip i n the main pulmonary artery region. Mediastinal tube remains present. Right-sided chest tube remains present. No pneumothorax is evident on the semiupright position. IMPRESSION: 1. No suspicious acute pulmonary process. 2. Lines and catheters discussed above
[2021-11-12] MEDS: IPRATROPIUM-ALBUTEROL 3 ML NEB INHALATION SCH ×4 (08:51→19:32)
[2021-11-12] MEDS ORDERED: MAGNESIUM HYDROXIDE 2,400 MG/10 ML CUP PO PRN (09:00)
[2021-11-12] MEDS ORDERED: bisacodyL 10 MG SUPP RECTAL PRN (09:00)
[2021-11-12] MEDS ORDERED: PANTOPRAZOLE 40 MG/10 ML VIAL IVP SCH (09:00)
[2021-11-12] MEDS ORDERED: METOPROLOL TARTRATE 12.5 MG TAB PO SCH (09:00)
[2021-11-12 09:37] LABS: Glucose,Whole Blood 107 mg/dL (75-99)
[2021-11-12] MEDS ORDERED: FUROSEMIDE 10 MG/ML 2 ML VIAL IV ONE ×2 (09:54→20:16)
[2021-11-12 11:09] LABS: Glucose,Whole Blood 170 mg/dL (75-99)
[2021-11-12 12:28] LABS: Glucose,Whole Blood 129 mg/dL (75-99)
[2021-11-12] MEDS: LACTATED RINGERS 1,000 ML IV SCH (12:36)
[2021-11-12 13:46] LABS: Glucose,Whole Blood 123 mg/dL (75-99)
[2021-11-12 15:00] LABS: Glucose,Whole Blood 122 mg/dL (75-99)
--- NOTE | 2021-11-12 15:27 | P.CONS ---
History of Present Illness - Reason for Consult Consult date: 11/12/21 - Chief Complaint Medical management - History of Present Illness 66-year-old female patient, history of hypertension, hypothyroidism and mitral valve prolapse, underwent a mitral valve annuloplasty. The patient was brought into the intensive care unit postoperatively and was intubated and sedated. Initial blood gases showed a pH of 7.31 with a pCO2 of 47 and pO2 of 207. The patient has chest tubes 1 mediastinal and 1 right pleural. The postop chest x- ray showed no acute abnormalities. No evidence of pneumothorax. Patient was extubated yesterday and is currently on nasal cannula Earlier this morning, the patient went into atrial fibrillation with rapid ventricular response, and expected outcome of surgery, and the patient was started on amiodarone drip loading and subsequent maintenance will be following. The patient is also on beta blockers in the form of metoprolol and the dose has been increased up to 25 mg by mouth twice a day. No anticoagulants for now. Hemodynamically she is stable. Adequate urine output. White cell count of 12.3 with hemoglobin of 10 and a platelet count of 241. BUN is at 40 with a creatinine of 0.67 and his sodium level is at 133. TSH is at 1.49. Review of Systems REVIEW OF SYSTEMS: CONSTITUTIONAL: No fever, no malaise, no fatigue. HEENT: No recent visual problems or hearing problems. Denied any sore throat. CARDIOVASCULAR: No chest pain, orthopnea, PND, no palpitations, no syncope. PULMONARY: No shortness of breath, no cough, no hemoptysis. GASTROINTESTINAL: No diarrhea, no nausea, no vomiting, no abdominal pain. NEUROLOGICAL: No headaches, no weakness, no numbness. HEMATOLOGICAL: Denies any bleeding or petechiae. GENITOURINARY: Denies any burning micturition, frequency, or urgency. MUSCULOSKELETAL/RHEUMATOLOGICAL: Denies any joint pain, swelling, or any muscle pain. ENDOCRINE: Denies any polyuria or polydipsia. The rest of the 14-point review of systems is negative. Past Medical History Past Medical History: GERD/Reflux, Hypertension, Mitral Valve Prolapse (MVP), Osteoarthritis (OA), Pneumonia, Thyroid Disorder Additional Past Medical History / Comment(s): Mitral valve prolapse, hx. colon polyps, SOB w/exertion although a little better recently, needing knee replacement, past hx. pneumonia 2019, possible sleep apnea History of Any Multi-Drug Resistant Organisms: None Reported Past Surgical History: Appendectomy, Heart Catheterization, Tubal Ligation Additional Past Surgical History / Comment(s): parotid gland tumor removed, colonoscopies, fallopian tubes removed, ovaries removed 2007 Past Anesthesia/Blood Transfusion Reactions: No Reported Reaction, Family History of Problems w/ Anesthesia Additional Past Anesthesia/Blood Transfusion Reaction / Comm: 18 y.o. son had some chest pain that was attributed to anesthesia per pt. but he's had further surg. w/no problems Smoking Status: Never smoker - Past Family History Mother Sister(s) Family Medical History: Cancer Additional Family Medical History / Comment(s): mom colon, sister brain & breast cancer Medications and Allergies Home Medications Medication Instructions Recorded Confirmed Type Levothyroxine Sodium [Synthroid] 150 mcg PO DAILY 03/31/17 11/10/21 History Ibuprofen [Advil] 200 - 400 mg PO Q6HR PRN 09/25/18 11/08/21 History ALPRAZolam [Xanax] 0.25 mg PO HS PRN 01/06/20 11/08/21 History Losartan [Cozaar] 50 mg PO DAILY #30 tab 01/08/20 11/08/21 Rx hydroCHLOROthiazide [Hydrodiuril] 12.5 mg PO DAILY #30 cap 01/08/20 11/08/21 Rx Omeprazole [PriLOSEC] 20 mg PO DAILY PRN 11/08/21 11/08/21 History Acetaminophen [Tylenol Arthritis] 650 mg PO Q6H PRN 11/10/21 11/10/21 History Mupirocin [Mupirocin 2%] 1 applic NASAL BID #1 tub 11/10/21 11/10/21 Rx Allergies Allergy/AdvReac Type Severity Reaction Status Date / Time cortisone Allergy Rash/Hives Verified 11/11/21 05:52 hyaluronic acid Allergy Itching Verified 11/11/21 05:52 [From Hyalgan] @injection site hydrocodone AdvReac SHORTNESS Verified 11/11/21 05:52 OF BREATHE propoxyphene napsylate AdvReac SHORTNESS Verified 11/11/21 05:52 [From Darvocet-N] OF BREATHE Physical Exam Vitals: Vital Signs Temp Pulse Resp BP Pulse Ox FiO2 11/12/21 09:03 72 11/12/21 09:00 71 15 138/75 98 11/12/21 08:51 71 11/12/21 08:00 99.5 F 69 14 138/75 95 11/12/21 07:00 96 18 93 L 11/12/21 06:00 78 15 87 L 11/12/21 05:00 98.1 F 75 24 93 L 11/12/21 04:00 76 14 98 11/12/21 03:00 72 10 L 93 L 11/12/21 02:00 68 14 94 L 11/12/21 01:00 76 16 138/75 94 L 11/12/21 00:00 75 18 95 11/11/21 23:25 75 15 94 L 11/11/21 23:00 77 13 95 11/11/21 22:00 79 16 95 11/11/21 21:00 82 14 95 11/11/21 20:07 83 11/11/21 20:00 79 19 122/62 97 11/11/21 19:54 79 11/11/21 19:00 78 13 98 11/11/21 18:45 77 8 L 98 11/11/21 18:30 77 12 95 11/11/21 18:15 80 6 L 88 L 11/11/21 18:00 79 6 L 96 11/11/21 17:45 76 16 95 11/11/21 17:30 73 13 95 11/11/21 17:15 75 8 L 94 L 11/11/21 17:00 75 14 95 11/11/21 16:45 75 17 94 L 11/11/21 16:30 74 6 L 98 11/11/21 16:17 72 16 11/11/21 16:15 67 7 L 100 11/11/21 16:08 71 16 11/11/21 16:00 98.1 F 70 6 L 97 11/11/21 15:45 67 15 100 11/11/21 15:30 64 17 100 11/11/21 15:24 50 11/11/21 15:15 65 20 100 11/11/21 15:00 67 20 100 11/11/21 14:50 50 11/11/21 14:45 64 13 100 11/11/21 14:30 63 13 100 11/11/21 14:15 63 12 100 11/11/21 14:00 70 12 100 11/11/21 13:47 70 12 11/11/21 13:45 70 12 100 11/11/21 13:36 70 12 11/11/21 13:30 70 13 100 11/11/21 13:15 70 13 100 11/11/21 13:00 95.9 F L 70 12 100 100 11/11/21 12:52 60 11/11/21 12:45 69 12 100 11/11/21 12:30 70 9 L 100 11/11/21 12:23 100 11/11/21 12:15 69 8 L 11/11/21 12:13 0 L 11/11/21 12:10 100 Intake and Output 11/11/21 11/12/21 11/12/21 22:59 06:59 14:59 Intake Total 360.993 1540.291 120.727 Output Total 1215 470 65 Balance -321.743 782.291 55.727 Intake: IV 322 542 118 Lactated Ringers 1,000 ml 150 400 100 @ 20 mls/hr IV .Q24H [facility] Rx#:[id number] cardiac output 100 70 pressure bags 72 72 18 Intake, IV Titration 451.257 60.291 2.727 Amount ACETAMINOPHEN IV (For NPO 100 ) 1,000 mg In Empty Bag 1 bag @ 400 mls/hr IVPB Q6H [facility] Rx#:[id number] Clevidipine Butyrate 25 43.867 53.499 mg In Empty Bag 1 bag @ 1 MG/HR 2 mls/hr IV .Q24H [facility] Rx#:[id number] Insulin Regular 100 unit 4.705 6.792 2.727 In Sodium Chloride 0.9% 100 ml @ Per Protocol IV .Q0M [facility] Rx#:[id number] Lactated Ringers 1,000 ml 250 @ 20 mls/hr IV .Q24H [facility] Rx#:[id number] ceFAZolin 2 gm In Sodium 50 Chloride 0.9% 50 ml @ 100 mls/hr IVPB Q8HR [facility] Rx# :[id number] propofoL 1,000 mg In 2.685 Empty Bag 1 bag @ Titrate IV .Q0M [facility]AZ[facility] Rx#: [id number] Oral 120 650 Output: Chest Tube Drainage 190 120 40 mediastinal and right 190 120 40 pleural Urine 1025 350 25 Other: Voiding Method Indwelling Catheter Indwelling Catheter Indwelling Catheter Weight 96.4 kg ABP, PAP, CO, CI - Last 8 Hours Arterial Blood Pressure 144/60 Arterial Blood Pressure 122/49 Arterial Blood Pressure 100/51 Arterial Blood Pressure 121/54 Arterial Blood Pressure 136/54 Arterial Blood Pressure 127/51 Arterial Blood Pressure 117/48 Arterial Blood Pressure 123/50 Pulmonary Artery Pressure 28/11 Pulmonary Artery Pressure 26/8 Pulmonary Artery Pressure 31/14 Pulmonary Artery Pressure 31/17 Pulmonary Artery Pressure 34/13 Pulmonary Artery Pressure 34/13 Pulmonary Artery Pressure 31/12 Pulmonary Artery Pressure 31/11 Cardiac Output 5.3 Cardiac Index 2.7 Head exam; There was no scleral icterus or corneal arcus. Mucous membranes were moist. Neck was supple and without jugular venous distension, thyromegaly, or carotid bruits. Carotids were easily palpable bilaterally. Lungs were clear to auscultation and percussion, and with normal diaphragmatic excursion. No wheezes or rales were noted. The patient has a right pleural and mediastinal chest tube both her mother place. Cardiac exam; The rhythm is irregular consistent of atrial fibrillation Abdominal exam revealed normal bowel sounds. The abdomen was soft, non-tender, and without masses, organomegaly, or appreciable enlargement of the abdominal aorta. Extremities; palpable pulses. There was no cyanosis, clubbing or edema. Skin; no evidence of significant rashes, suspicious appearing nevi or other concerning lesions. Neurologic awake and alert and there is no focal neurological deficits. Results CBC & Chem 7: 11/12/21 04:15 11/12/21 04:15 Labs: Abnormal Lab Results - Last 24 Hours (Table) 11/08/21 11/11/21 11/11/21 Range/Units 09:09 08:50 09:40 WBC (3.8-10.6) k/uL RBC (3.80-5.40) m/uL Hgb (11.4-16.0) gm/dL Hct (34.0-46.0) % Neutrophils # (1.3-7.7) k/uL Lymphocytes # (1.0-4.8) k/uL ABG pH (7.35-7.45) ABG pCO2 (35-45) mmHg ABG pO2 243 H 246 H (83-108) mmHg ABG Total CO2 (19-24) mmol/L ABG O2 Saturation 99.6 H 99.6 H (94-97) % ABG Hematocrit (34.0-46.0) % ABG Potassium (3.4-4.5) mmol/L ABG Ionized Calcium (4.5-5.3) mg/dL ABG Glucose 104 H (75-99) mg/dL Hemoglobin 10.9 L (11.4-16.0) gm/dL Sodium (137-145) mmol/L Chloride (98-107) mmol/L Glucose (74-99) mg/dL POC Glucose (mg/dL) (75-99) mg/dL Calcium (8.4-10.2) mg/dL Magnesium (1.6-2.3) mg/dL AST (14-36) U/L Total Protein (6.3-8.2) g/dL Albumin (3.5-5.0) g/dL TSH (0.465-4.680) mIU/L Arterial Blood Potassium (3.4-4.5) mmol/L Arterial Blood Glucose 104 H (75-99) mg/dL Crossmatch See Detail 11/11/21 11/11/21 11/11/21 Range/Units 10:06 10:30 11:27 WBC (3.8-10.6) k/uL RBC (3.80-5.40) m/uL Hgb (11.4-16.0) gm/dL Hct (34.0-46.0) % Neutrophils # (1.3-7.7) k/uL Lymphocytes # (1.0-4.8) k/uL ABG pH 7.31 L (7.35-7.45) ABG pCO2 (35-45) mmHg ABG pO2 410 H 349 H 157 H (83-108) mmHg ABG Total CO2 (19-24) mmol/L ABG O2 Saturation 100.0 H 99.8 H 99.2 H (94-97) % ABG Hematocrit 25 L 26 L 31 L (34.0-46.0) % ABG Potassium 5.4 H 5.2 H 4.9 H (3.4-4.5) mmol/L ABG Ionized Calcium 3.8 L 4.1 L (4.5-5.3) mg/dL ABG Glucose 104 H 103 H 121 H (75-99) mg/dL Hemoglobin 8.2 L 8.3 L 9.9 L (11.4-16.0) gm/dL Sodium (137-145) mmol/L Chloride (98-107) mmol/L Glucose (74-99) mg/dL POC Glucose (mg/dL) (75-99) mg/dL Calcium (8.4-10.2) mg/dL Magnesium (1.6-2.3) mg/dL AST (14-36) U/L Total Protein (6.3-8.2) g/dL Albumin (3.5-5.0) g/dL TSH (0.465-4.680) mIU/L Arterial Blood Potassium 5.4 H 5.2 H 4.9 H (3.4-4.5) mmol/L Arterial Blood Glucose 104 H 103 H 121 H (75-99) mg/dL Crossmatch 11/11/21 11/11/21 11/11/21 Range/Units 12:15 12:15 12:18 WBC 18.8 H (3.8-10.6) k/uL RBC 3.79 L (3.80-5.40) m/uL Hgb 10.7 L (11.4-16.0) gm/dL Hct 33.9 L (34.0-46.0) % Neutrophils # 15.9 H (1.3-7.7) k/uL Lymphocytes # (1.0-4.8) k/uL ABG pH (7.35-7.45) ABG pCO2 (35-45) mmHg ABG pO2 (83-108) mmHg ABG Total CO2 (19-24) mmol/L ABG O2 Saturation (94-97) % ABG Hematocrit (34.0-46.0) % ABG Potassium (3.4-4.5) mmol/L ABG Ionized Calcium (4.5-5.3) mg/dL ABG Glucose (75-99) mg/dL Hemoglobin (11.4-16.0) gm/dL Sodium (137-145) mmol/L Chloride 109 H (98-107) mmol/L Glucose 112 H (74-99) mg/dL POC Glucose (mg/dL) 117 H (75-99) mg/dL Calcium 8.2 L (8.4-10.2) mg/dL Magnesium 2.8 H (1.6-2.3) mg/dL AST 43 H (14-36) U/L Total Protein 5.0 L (6.3-8.2) g/dL Albumin 2.9 L (3.5-5.0) g/dL TSH (0.465-4.680) mIU/L Arterial Blood Potassium (3.4-4.5) mmol/L Arterial Blood Glucose (75-99) mg/dL Crossmatch 11/11/21 11/11/21 11/11/21 Range/Units 12:46 13:15 14:07 WBC 17.6 H (3.8-10.6) k/uL RBC (3.80-5.40) m/uL Hgb 11.3 L (11.4-16.0) gm/dL Hct (34.0-46.0) % Neutrophils # 14.9 H (1.3-7.7) k/uL Lymphocytes # (1.0-4.8) k/uL ABG pH 7.32 L (7.35-7.45) ABG pCO2 47 H (35-45) mmHg ABG pO2 207 H (83-108) mmHg ABG Total CO2 26 H (19-24) mmol/L ABG O2 Saturation 99.0 H (94-97) % ABG Hematocrit (34.0-46.0) % ABG Potassium (3.4-4.5) mmol/L ABG Ionized Calcium (4.5-5.3) mg/dL ABG Glucose (75-99) mg/dL Hemoglobin (11.4-16.0) gm/dL Sodium (137-145) mmol/L Chloride (98-107) mmol/L Glucose (74-99) mg/dL POC Glucose (mg/dL) 113 H (75-99) mg/dL Calcium (8.4-10.2) mg/dL Magnesium (1.6-2.3) mg/dL AST (14-36) U/L Total Protein (6.3-8.2) g/dL Albumin (3.5-5.0) g/dL TSH (0.465-4.680) mIU/L Arterial Blood Potassium (3.4-4.5) mmol/L Arterial Blood Glucose (75-99) mg/dL Crossmatch 11/11/21 11/11/21 11/11/21 Range/Units 14:09 15:12 15:51 WBC (3.8-10.6) k/uL RBC (3.80-5.40) m/uL Hgb (11.4-16.0) gm/dL Hct (34.0-46.0) % Neutrophils # (1.3-7.7) k/uL Lymphocytes # (1.0-4.8) k/uL ABG pH 7.33 L (7.35-7.45) ABG pCO2 47 H (35-45) mmHg ABG pO2 141 H (83-108) mmHg ABG Total CO2 26 H (19-24) mmol/L ABG O2 Saturation 98.3 H (94-97) % ABG Hematocrit (34.0-46.0) % ABG Potassium (3.4-4.5) mmol/L ABG Ionized Calcium (4.5-5.3) mg/dL ABG Glucose (75-99) mg/dL Hemoglobin (11.4-16.0) gm/dL Sodium (137-145) mmol/L Chloride (98-107) mmol/L Glucose (74-99) mg/dL POC Glucose (mg/dL) 128 H 130 H (75-99) mg/dL Calcium (8.4-10.2) mg/dL Magnesium (1.6-2.3) mg/dL AST (14-36) U/L Total Protein (6.3-8.2) g/dL Albumin (3.5-5.0) g/dL TSH (0.465-4.680) mIU/L Arterial Blood Potassium (3.4-4.5) mmol/L Arterial Blood Glucose (75-99) mg/dL Crossmatch 11/11/21 11/11/21 11/11/21 Range/Units 16:05 18:02 18:06 WBC 15.9 H (3.8-10.6) k/uL RBC (3.80-5.40) m/uL Hgb 11.2 L (11.4-16.0) gm/dL Hct (34.0-46.0) % Neutrophils # 14.5 H (1.3-7.7) k/uL Lymphocytes # 0.7 L (1.0-4.8) k/uL ABG pH (7.35-7.45) ABG pCO2 (35-45) mmHg ABG pO2 (83-108) mmHg ABG Total CO2 (19-24) mmol/L ABG O2 Saturation (94-97) % ABG Hematocrit (34.0-46.0) % ABG Potassium (3.4-4.5) mmol/L ABG Ionized Calcium (4.5-5.3) mg/dL ABG Glucose (75-99) mg/dL Hemoglobin (11.4-16.0) gm/dL Sodium (137-145) mmol/L Chloride (98-107) mmol/L Glucose (74-99) mg/dL POC Glucose (mg/dL) 140 H 144 H (75-99) mg/dL Calcium (8.4-10.2) mg/dL Magnesium (1.6-2.3) mg/dL AST (14-36) U/L Total Protein (6.3-8.2) g/dL Albumin (3.5-5.0) g/dL TSH (0.465-4.680) mIU/L Arterial Blood Potassium (3.4-4.5) mmol/L Arterial Blood Glucose (75-99) mg/dL Crossmatch 11/11/21 11/11/21 11/11/21 Range/Units 19:03 19:50 21:12 WBC (3.8-10.6) k/uL RBC (3.80-5.40) m/uL Hgb (11.4-16.0) gm/dL Hct (34.0-46.0) % Neutrophils # (1.3-7.7) k/uL Lymphocytes # (1.0-4.8) k/uL ABG pH (7.35-7.45) ABG pCO2 (35-45) mmHg ABG pO2 (83-108) mmHg ABG Total CO2 (19-24) mmol/L ABG O2 Saturation (94-97) % ABG Hematocrit (34.0-46.0) % ABG Potassium (3.4-4.5) mmol/L ABG Ionized Calcium (4.5-5.3) mg/dL ABG Glucose (75-99) mg/dL Hemoglobin (11.4-16.0) gm/dL Sodium (137-145) mmol/L Chloride (98-107) mmol/L Glucose (74-99) mg/dL POC Glucose (mg/dL) 126 H 130 H 129 H (75-99) mg/dL Calcium (8.4-10.2) mg/dL Magnesium (1.6-2.3) mg/dL AST (14-36) U/L Total Protein (6.3-8.2) g/dL Albumin (3.5-5.0) g/dL TSH (0.465-4.680) mIU/L Arterial Blood Potassium (3.4-4.5) mmol/L Arterial Blood Glucose (75-99) mg/dL Crossmatch 11/11/21 11/11/21 11/12/21 Range/Units 22:12 23:02 00:14 WBC (3.8-10.6) k/uL RBC (3.80-5.40) m/uL Hgb (11.4-16.0) gm/dL Hct (34.0-46.0) % Neutrophils # (1.3-7.7) k/uL Lymphocytes # (1.0-4.8) k/uL ABG pH (7.35-7.45) ABG pCO2 (35-45) mmHg ABG pO2 (83-108) mmHg ABG Total CO2 (19-24) mmol/L ABG O2 Saturation (94-97) % ABG Hematocrit (34.0-46.0) % ABG Potassium (3.4-4.5) mmol/L ABG Ionized Calcium (4.5-5.3) mg/dL ABG Glucose (75-99) mg/dL Hemoglobin (11.4-16.0) gm/dL Sodium (137-145) mmol/L Chloride (98-107) mmol/L Glucose (74-99) mg/dL POC Glucose (mg/dL) 125 H 122 H 122 H (75-99) mg/dL Calcium (8.4-10.2) mg/dL Magnesium (1.6-2.3) mg/dL AST (14-36) U/L Total Protein (6.3-8.2) g/dL Albumin (3.5-5.0) g/dL TSH (0.465-4.680) mIU/L Arterial Blood Potassium (3.4-4.5) mmol/L Arterial Blood Glucose (75-99) mg/dL Crossmatch 11/12/21 11/12/21 11/12/21 Range/Units 01:05 02:05 03:02 WBC (3.8-10.6) k/uL RBC (3.80-5.40) m/uL Hgb (11.4-16.0) gm/dL Hct (34.0-46.0) % Neutrophils # (1.3-7.7) k/uL Lymphocytes # (1.0-4.8) k/uL ABG pH (7.35-7.45) ABG pCO2 (35-45) mmHg ABG pO2 (83-108) mmHg ABG Total CO2 (19-24) mmol/L ABG O2 Saturation (94-97) % ABG Hematocrit (34.0-46.0) % ABG Potassium (3.4-4.5) mmol/L ABG Ionized Calcium (4.5-5.3) mg/dL ABG Glucose (75-99) mg/dL Hemoglobin (11.4-16.0) gm/dL Sodium (137-145) mmol/L Chloride (98-107) mmol/L Glucose (74-99) mg/dL POC Glucose (mg/dL) 118 H 122 H 122 H (75-99) mg/dL Calcium (8.4-10.2) mg/dL Magnesium (1.6-2.3) mg/dL AST (14-36) U/L Total Protein (6.3-8.2) g/dL Albumin (3.5-5.0) g/dL TSH (0.465-4.680) mIU/L Arterial Blood Potassium (3.4-4.5) mmol/L Arterial Blood Glucose (75-99) mg/dL Crossmatch 11/12/21 11/12/21 11/12/21 Range/Units 04:00 04:15 04:15 WBC 12.3 H (3.8-10.6) k/uL RBC 3.45 L (3.80-5.40) m/uL Hgb 10.0 L (11.4-16.0) gm/dL Hct 30.8 L (34.0-46.0) % Neutrophils # 10.1 H (1.3-7.7) k/uL Lymphocytes # (1.0-4.8) k/uL ABG pH (7.35-7.45) ABG pCO2 (35-45) mmHg ABG pO2 (83-108) mmHg ABG Total CO2 (19-24) mmol/L ABG O2 Saturation (94-97) % ABG Hematocrit (34.0-46.0) % ABG Potassium (3.4-4.5) mmol/L ABG Ionized Calcium (4.5-5.3) mg/dL ABG Glucose (75-99) mg/dL Hemoglobin (11.4-16.0) gm/dL Sodium 133 L (137-145) mmol/L Chloride (98-107) mmol/L Glucose 107 H (74-99) mg/dL POC Glucose (mg/dL) 131 H (75-99) mg/dL Calcium 7.6 L (8.4-10.2) mg/dL Magnesium (1.6-2.3) mg/dL AST 57 H (14-36) U/L Total Protein 5.1 L (6.3-8.2) g/dL Albumin 2.9 L (3.5-5.0) g/dL TSH 0.062 L (0.465-4.680) mIU/L Arterial Blood Potassium (3.4-4.5) mmol/L Arterial Blood Glucose (75-99) mg/dL Crossmatch 11/12/21 11/12/21 11/12/21 Range/Units 05:17 06:02 06:55 WBC (3.8-10.6) k/uL RBC (3.80-5.40) m/uL Hgb (11.4-16.0) gm/dL Hct (34.0-46.0) % Neutrophils # (1.3-7.7) k/uL Lymphocytes # (1.0-4.8) k/uL ABG pH (7.35-7.45) ABG pCO2 (35-45) mmHg ABG pO2 (83-108) mmHg ABG Total CO2 (19-24) mmol/L ABG O2 Saturation (94-97) % ABG Hematocrit (34.0-46.0) % ABG Potassium (3.4-4.5) mmol/L ABG Ionized Calcium (4.5-5.3) mg/dL ABG Glucose (75-99) mg/dL Hemoglobin (11.4-16.0) gm/dL Sodium (137-145) mmol/L Chloride (98-107) mmol/L Glucose (74-99) mg/dL POC Glucose (mg/dL) 111 H 117 H 170 H (75-99) mg/dL Calcium (8.4-10.2) mg/dL Magnesium (1.6-2.3) mg/dL AST (14-36) U/L Total Protein (6.3-8.2) g/dL Albumin (3.5-5.0) g/dL TSH (0.465-4.680) mIU/L Arterial Blood Potassium (3.4-4.5) mmol/L Arterial Blood Glucose (75-99) mg/dL Crossmatch 11/12/21 Range/Units 08:15 WBC (3.8-10.6) k/uL RBC (3.80-5.40) m/uL Hgb (11.4-16.0) gm/dL Hct (34.0-46.0) % Neutrophils # (1.3-7.7) k/uL Lymphocytes # (1.0-4.8) k/uL ABG pH (7.35-7.45) ABG pCO2 (35-45) mmHg ABG pO2 (83-108) mmHg ABG Total CO2 (19-24) mmol/L ABG O2 Saturation (94-97) % ABG Hematocrit (34.0-46.0) % ABG Potassium (3.4-4.5) mmol/L ABG Ionized Calcium (4.5-5.3) mg/dL ABG Glucose (75-99) mg/dL Hemoglobin (11.4-16.0) gm/dL Sodium (137-145) mmol/L Chloride (98-107) mmol/L Glucose (74-99) mg/dL POC Glucose (mg/dL) 119 H (75-99) mg/dL Calcium (8.4-10.2) mg/dL Magnesium (1.6-2.3) mg/dL AST (14-36) U/L Total Protein (6.3-8.2) g/dL Albumin (3.5-5.0) g/dL TSH (0.465-4.680) mIU/L Arterial Blood Potassium (3.4-4.5) mmol/L Arterial Blood Glucose (75-99) mg/dL Crossmatch Assessment and Plan Assessment: 1. Mitral valve annuloplasty for severe symptomatic mitral valve regurgitation; POD 1 - Patient is post thoracotomy, extubated and currently has right lower lobe and mediastinal chest tubes in place - Cardiothoracic surgery/intensive care team on board 2. New onset atrial fibrillation; expected; patient is rate controlled on amiodarone; no anticoagulation therapy recommended 3. Hypertension; patient has been placed on metoprolol 25 mg twice a day; hydrochlorothiazide remains on hold 4. Hypothyroidism; TSH at 0.062; patient takes levothyroxine 150 MCG at home; we will continue current dose and order free T4 5. Hyperlipidemia; Lipitor 40 mg by mouth daily DVT prophylaxis; SCDs; plan for anticoagulation atrial fibrillation becomes persistent CODE STATUS; full code
[2021-11-12 16:41] LABS: Glucose,Whole Blood 116 mg/dL (75-99)
[2021-11-12 18:09] LABS: Glucose,Whole Blood 130 mg/dL (75-99)
[2021-11-12] MEDS: INSULIN REGULAR 100 UNIT in SODIUM CHLORIDE 0.9% 100 ML IV SCH (19:07)
[2021-11-12 19:19] LABS: Glucose,Whole Blood 131 mg/dL (75-99)
[2021-11-12 19:54] LABS: Glucose,Whole Blood 127 mg/dL (75-99)
[2021-11-12] MEDS: SENNOSIDES-DOCUSATE SODIUM 1 EACH TAB PO SCH (20:24)
[2021-11-12] MEDS: METOPROLOL TARTRATE 25 MG TAB PO SCH (20:25)
[2021-11-12] MEDS: AMIODARONE 200 MG TAB PO SCH (20:25)
[2021-11-12 22:34] LABS: Glucose,Whole Blood 125 mg/dL (75-99)
[2021-11-13] MEDS: KETOROLAC 15 MG/ML 1 ML VIAL IVP SCH ×5 (00:18→23:16)
[2021-11-13] MEDS: HEPARIN SODIUM,PORCINE/PF 5,000 UNIT/0.5 ML SYRINGE SQ SCH ×4 (00:19→23:16)
[2021-11-13 00:25] LABS: Glucose,Whole Blood 120 mg/dL (75-99)
[2021-11-13 02:28] LABS: Glucose,Whole Blood 117 mg/dL (75-99)
[2021-11-13 04:31] LABS: Glucose,Whole Blood 106 mg/dL (75-99)
[2021-11-13 04:45] LABS: Basophils % (A) 0 %; Eosinophils # (A) 0.1 k/uL (0-0.7); Eosinophils % (A) 1 %; HCT 29.5 % (34.0-46.0); HGB 9.3 gm/dL (11.4-16.0); Lymphocytes # (A) 2.1 k/uL (1.0-4.8); Lymphocytes % (A) 13 %; MCH 28.3 pg (25.0-35.0); MCHC 31.5 g/dL (31.0-37.0); MCV 89.8 fL (80.0-100.0); Mean Platelet Volume 8.4; Monocytes # (A) 0.9 k/uL (0-1.0); Monocytes % (A) 6 %; Neutrophils # (A) 12.4 k/uL (1.3-7.7); Neutrophils % (A) 78 %; Platelet Count 212 k/uL (150-450); RBC 3.28 m/uL (3.80-5.40); RDW 13.4 % (11.5-15.5); WBC 15.9 k/uL (3.8-10.6)
[2021-11-13 04:49] LABS: Ionized Calcium 4.6 mg/dL (4.5-5.3)
[2021-11-13 04:57] LABS: Calcium 7.7 mg/dL (8.4-10.2); Potassium 4.3 mmol/L (3.5-5.1); Total Protein 5.2 g/dL (6.3-8.2)
[2021-11-13] MEDS: PANTOPRAZOLE 40 MG TABLET PO SCH (06:09)
[2021-11-13 06:14] LABS: Glucose,Whole Blood 136 mg/dL (75-99)
[2021-11-13] MEDS ORDERED: PANTOPRAZOLE 40 MG TABLET PO SCH (07:30)
--- NOTE | 2021-11-13 07:54 | P.PN ---
Subjective HISTORY OF PRESENTING ILLNESS Patient is a pleasant 66 -year-old female with history of hypertension, GERD, hypothyroidism, severe mitral regurgitation. She has been having increased shortness breath over the last 3 months and therefore underwent workup and found have severe mitral regurgitation. She underwent mitral valve repair 11/11/2021 with a 28 mm CarboMedics AnnuloFlex band, left atrial appendage clip without incident. She was extubated and currently this morning doing well and admitting to some chest pain around the incision worse with deep inspiration however not much shortness breath. She did have a brief episode of atrial fibrillation was placed on amiodarone with conversion back to sinus rhythm. She did admit to palpitations during this episode and admits to some palpitations at home or last few years which felt similar to this. No history of stroke or TIA. She was noted to be mildly hyperthyroid on blood work. 11/13 Patient seen and examined. Patient still having intermittent episodes of atrial fibrillation with predominantly controlled ventricular rates. Not overly symptomatic. Denies any chest pain other than the incision. Shortness breath relatively mild. Does have mild appetite however on clear liquids. PHYSICAL EXAMINATION Vital signs reviewed. CONSTITUTIONAL: No apparent distress. HEENT: Head is normocephalic. Pupils are equal, round. Sclerae anicteric. Mucous membranes of the mouth are moist. No JVD. No carotid bruit. CHEST EXAMINATION: Lungs are clear to auscultation. No chest wall tenderness is noted on palpation or with deep breathing. HEART EXAMINATION: Regular rate and rhythm. S1, S2 heard. No murmurs, gallops or rub. ABDOMEN: Soft, nontender. Positive bowel sounds. EXTREMITIES: 2+ peripheral pulses, no lower extremity edema and no calf tenderness. NEUROLOGIC EXAMINATION: Patient is awake, alert and oriented x3. Assessment 1. Severe mitral regurgitation status post mitral valve repair 2. Paroxysmal atrial fibrillation, likely postoperative however additional history of similar palpitations in the past 3. Hypertension 4. Hypothyroidism currently hyperthyroid likely iatrogenic 5. Palpitations Plan: Patient still having intermittent episodes of A. fib. At this point her CHADSVASC is 2 for hypertension and female however this may all be postoperative A. fib and likely exacerbated by the hyperthyroid state. She did also had left atrial appendage closure. At this time continue with antiplatelets and if has recurrent episodes further down the road would recommend anticoagulation at that time. Objective - Vital Signs Vital signs: Vital Signs Temp 97.9 F 11/13/21 04:00 Pulse 61 11/13/21 07:00 Resp 16 11/13/21 07:00 BP 135/53 11/13/21 05:00 Pulse Ox 96 11/13/21 07:00 FiO2 50 11/11/21 15:24 Intake & Output 11/12/21 11/13/21 11/13/21 18:59 06:59 18:59 Intake Total 896.252 798.018 26 Output Total 470 610 30 Balance 426.252 188.018 -4 Weight 98.5 kg Intake: IV 491 312 26 Lactated Ringers 1,000 ml 390 240 20 @ 20 mls/hr IV .Q24H YAZAN Rx#:[id number] cardiac output 20 pressure bags 81 72 6 Intake, IV Titration 5.252 6.018 Amount Insulin Regular 100 unit 5.252 6.018 In Sodium Chloride 0.9% 100 ml @ Per Protocol IV .Q0M YAZAN Rx#:[id number] Oral 400 480 Output: Chest Tube Drainage 220 190 mediastinal and right 220 190 pleural Urine 250 420 30 Other: Voiding Method Indwelling Catheter Indwelling Catheter ABP, PAP, CO, CI - Last Documented Arterial Blood Pressure 120/48 Pulmonary Artery Pressure 28/ Cardiac Output 4.2 Cardiac Index 2.1 - Labs CBC & Chem 7: 11/13/21 04:30 11/13/21 04:30 Labs: Abnormal Lab Results - Last 24 Hours (Table) 11/12/21 11/12/21 11/12/21 Range/Units 08:15 09:35 11:08 WBC (3.8-10.6) k/uL RBC (3.80-5.40) m/uL Hgb (11.4-16.0) gm/dL Hct (34.0-46.0) % Neutrophils # (1.3-7.7) k/uL Sodium (137-145) mmol/L Carbon Dioxide (22-30) mmol/L BUN (7-17) mg/dL Glucose (74-99) mg/dL POC Glucose (mg/dL) 119 H 107 H 170 H (75-99) mg/dL Calcium (8.4-10.2) mg/dL AST (14-36) U/L ALT (4-34) U/L Total Protein (6.3-8.2) g/dL Albumin (3.5-5.0) g/dL 11/12/21 11/12/21 11/12/21 Range/Units 12:22 13:44 14:58 WBC (3.8-10.6) k/uL RBC (3.80-5.40) m/uL Hgb (11.4-16.0) gm/dL Hct (34.0-46.0) % Neutrophils # (1.3-7.7) k/uL Sodium (137-145) mmol/L Carbon Dioxide (22-30) mmol/L BUN (7-17) mg/dL Glucose (74-99) mg/dL POC Glucose (mg/dL) 129 H 123 H 122 H (75-99) mg/dL Calcium (8.4-10.2) mg/dL AST (14-36) U/L ALT (4-34) U/L Total Protein (6.3-8.2) g/dL Albumin (3.5-5.0) g/dL 11/12/21 11/12/21 11/12/21 Range/Units 16:39 18:08 19:16 WBC (3.8-10.6) k/uL RBC (3.80-5.40) m/uL Hgb (11.4-16.0) gm/dL Hct (34.0-46.0) % Neutrophils # (1.3-7.7) k/uL Sodium (137-145) mmol/L Carbon Dioxide (22-30) mmol/L BUN (7-17) mg/dL Glucose (74-99) mg/dL POC Glucose (mg/dL) 116 H 130 H 131 H (75-99) mg/dL Calcium (8.4-10.2) mg/dL AST (14-36) U/L ALT (4-34) U/L Total Protein (6.3-8.2) g/dL Albumin (3.5-5.0) g/dL 11/12/21 11/12/21 11/13/21 Range/Units 19:53 22:33 00:24 WBC (3.8-10.6) k/uL RBC (3.80-5.40) m/uL Hgb (11.4-16.0) gm/dL Hct (34.0-46.0) % Neutrophils # (1.3-7.7) k/uL Sodium (137-145) mmol/L Carbon Dioxide (22-30) mmol/L BUN (7-17) mg/dL Glucose (74-99) mg/dL POC Glucose (mg/dL) 127 H 125 H 120 H (75-99) mg/dL Calcium (8.4-10.2) mg/dL AST (14-36) U/L ALT (4-34) U/L Total Protein (6.3-8.2) g/dL Albumin (3.5-5.0) g/dL 11/13/21 11/13/21 11/13/21 Range/Units 02:27 04:29 04:30 WBC 15.9 H (3.8-10.6) k/uL RBC 3.28 L (3.80-5.40) m/uL Hgb 9.3 L (11.4-16.0) gm/dL Hct 29.5 L (34.0-46.0) % Neutrophils # 12.4 H (1.3-7.7) k/uL Sodium (137-145) mmol/L Carbon Dioxide (22-30) mmol/L BUN (7-17) mg/dL Glucose (74-99) mg/dL POC Glucose (mg/dL) 117 H 106 H (75-99) mg/dL Calcium (8.4-10.2) mg/dL AST (14-36) U/L ALT (4-34) U/L Total Protein (6.3-8.2) g/dL Albumin (3.5-5.0) g/dL 11/13/21 11/13/21 Range/Units 04:30 06:13 WBC (3.8-10.6) k/uL RBC (3.80-5.40) m/uL Hgb (11.4-16.0) gm/dL Hct (34.0-46.0) % Neutrophils # (1.3-7.7) k/uL Sodium 125 L (137-145) mmol/L Carbon Dioxide 21 L (22-30) mmol/L BUN 20 H (7-17) mg/dL Glucose 105 H (74-99) mg/dL POC Glucose (mg/dL) 136 H (75-99) mg/dL Calcium 7.7 L (8.4-10.2) mg/dL AST 89 H (14-36) U/L ALT 40 H (4-34) U/L Total Protein 5.2 L (6.3-8.2) g/dL Albumin 3.0 L (3.5-5.0) g/dL
[2021-11-13] MEDS: ATORVASTATIN 40 MG TAB PO SCH (08:04)
[2021-11-13] MEDS: ASPIRIN 325 MG TAB PO SCH (08:04)
[2021-11-13] MEDS: AMIODARONE 200 MG TAB PO SCH ×2 (08:04→21:25)
[2021-11-13] MEDS: CLOPIDOGREL 75 MG TAB PO SCH (08:04)
[2021-11-13] MEDS: METOPROLOL TARTRATE 25 MG TAB PO SCH ×2 (08:04→21:25)
[2021-11-13] MEDS: MUPIROCIN 2% OINT 22 GM TUBE NASAL SCH ×2 (08:05→21:26)
[2021-11-13 08:14] LABS: Glucose,Whole Blood 131 mg/dL (75-99)
--- NOTE | 2021-11-13 08:15 | P.PN ---
Subjective Progress Note Date: 11/13/21 Principal diagnosis: Severe mitral regurgitation with dilated mitral annulus. Previous medical history of hypertension, hypothyroid, remote history of pneumonia, occasional EtOH use, never smoker, family history of premature coronary artery disease- father with first [place] at 42 years old, from [place] at 57 years old. Vaccinated against Covid. Preoperative nasal swab positive for MSSA POD #2 mitral valve repair with a #28 mm CarboMedics AnnuloFlex band, clip ligation of the left atrial appendage with a 35 mm AtriClip and intraoperative transesophageal echocardiogram Postoperative acute blood loss anemia, expected given hemodilution and cardiopulmonary bypass pump Paroxysmal atrial fibrillation, known common occurrence after open heart surgery The patient was seen and examined sitting up in a recliner this morning in the intensive care unit in no acute distress. She is currently in sinus rhythm although she has been in and out of atrial fibrillation, denies shortness of breath. She does complain of postsurgical chest pain but states it is controlled on current medication regimen. Hemodynamically stable currently. Right internal jugular [place]/Cordis, right radial arterial line, mediastinal/right pleural chest tubes all remain. Objective - Vital Signs Vital signs: Vital Signs Temp 98.4 F 11/13/21 08:00 Pulse 58 L 11/13/21 08:00 Resp 26 H 11/13/21 08:00 BP 135/53 11/13/21 05:00 Pulse Ox 96 11/13/21 08:00 FiO2 50 11/11/21 15:24 Intake & Output 11/12/21 11/13/21 11/13/21 18:59 06:59 18:59 Intake Total 896.252 798.018 26 Output Total 470 610 30 Balance 426.252 188.018 -4 Weight 98.5 kg Intake: IV 491 312 26 Lactated Ringers 1,000 ml 390 240 20 @ 20 mls/hr IV .Q24H YAZAN Rx#:[id number] cardiac output 20 pressure bags 81 72 6 Intake, IV Titration 5.252 6.018 Amount Insulin Regular 100 unit 5.252 6.018 In Sodium Chloride 0.9% 100 ml @ Per Protocol IV .Q0M YAZAN Rx#:[id number] Oral 400 480 Output: Chest Tube Drainage 220 190 mediastinal and right 220 190 pleural Urine 250 420 30 Other: Voiding Method Indwelling Catheter Indwelling Catheter ABP, PAP, CO, CI - Last Documented Arterial Blood Pressure 118/46 Pulmonary Artery Pressure 28/11 Cardiac Output 4.2 Cardiac Index 2.1 - Exam CONSTITUTIONAL: Appears comfortable, cooperative, no acute distress RESPIRATORY: Lungs sounds diminished bilaterally. Respirations even, nonlabored. Currently on 3 L nasal cannula with oxygen saturation 96%. Able to achieve 1000 mL on incentive spirometry. Strong cough. CARDIOVASCULAR: S1, S2 present. Regular rate and rhythm, sinus rhythm on tele metry currently, has been going in and out of A. fib overnight. Sternum stable. Palpable peripheral pulses bilaterally. Trace bilateral lower extremity edema present. No calf pain or tenderness noted. Heart hugger in place with patient demonstrating appropriate use. Antiembolism stockings, SCDs present. GASTROINTESTINAL: Abdomen soft, nontender, nondistended. Hypoactive bowel sounds present 4 quadrants. Tolerating clear liquid. Negative flatus, positive belching GENITOURINARY: Sanchez present draining clear, yellow urine. Output overnight 30-35 mL per hour, 670 mL last 24 hours INTEGUMENTARY: Skin is warm and dry with evidence of good perfusion. Anterior chest incision well approximated and covered with dry intact dressing NEUROLOGIC: Cranial nerves II through XII intact MUSKULOSKELETAL: Able to move all extremities, strength equal bilaterally PSYCHIATRIC: Alert and oriented to person place and time, appropriate affect, intact judgment and insight INVASIVE LINES AND TUBES: Mediastinal/right pleural chest tubes present and connected to wall suction, no air leaks present, 170 mL serosanguineous drainage overnight, 400 mL since surgery. A/V epicardial pacemaker wires present, connected to generator, AAI mode with backup rate 50 bpm. Right internal jugular Cordis, right radial arterial line present. - Allied health notes Allied health notes reviewed: nursing - Labs CBC & Chem 7: 11/13/21 04:30 11/13/21 04:30 Labs: Abnormal Lab Results - Last 24 Hours (Table) 11/12/21 11/12/21 11/12/21 Range/Units 08:15 09:35 11:08 WBC (3.8-10.6) k/uL RBC (3.80-5.40) m/uL Hgb (11.4-16.0) gm/dL Hct (34.0-46.0) % Neutrophils # (1.3-7.7) k/uL Sodium (137-145) mmol/L Carbon Dioxide (22-30) mmol/L BUN (7-17) mg/dL Glucose (74-99) mg/dL POC Glucose (mg/dL) 119 H 107 H 170 H (75-99) mg/dL Calcium (8.4-10.2) mg/dL AST (14-36) U/L ALT (4-34) U/L Total Protein (6.3-8.2) g/dL Albumin (3.5-5.0) g/dL 11/12/21 11/12/21 11/12/21 Range/Units 12:22 13:44 14:58 WBC (3.8-10.6) k/uL RBC (3.80-5.40) m/uL Hgb (11.4-16.0) gm/dL Hct (34.0-46.0) % Neutrophils # (1.3-7.7) k/uL Sodium (137-145) mmol/L Carbon Dioxide (22-30) mmol/L BUN (7-17) mg/dL Glucose (74-99) mg/dL POC Glucose (mg/dL) 129 H 123 H 122 H (75-99) mg/dL Calcium (8.4-10.2) mg/dL AST (14-36) U/L ALT (4-34) U/L Total Protein (6.3-8.2) g/dL Albumin (3.5-5.0) g/dL 11/12/21 11/12/21 11/12/21 Range/Units 16:39 18:08 19:16 WBC (3.8-10.6) k/uL RBC (3.80-5.40) m/uL Hgb (11.4-16.0) gm/dL Hct (34.0-46.0) % Neutrophils # (1.3-7.7) k/uL Sodium (137-145) mmol/L Carbon Dioxide (22-30) mmol/L BUN (7-17) mg/dL Glucose (74-99) mg/dL POC Glucose (mg/dL) 116 H 130 H 131 H (75-99) mg/dL Calcium (8.4-10.2) mg/dL AST (14-36) U/L ALT (4-34) U/L Total Protein (6.3-8.2) g/dL Albumin (3.5-5.0) g/dL 11/12/21 11/12/21 11/13/21 Range/Units 19:53 22:33 00:24 WBC (3.8-10.6) k/uL RBC (3.80-5.40) m/uL Hgb (11.4-16.0) gm/dL Hct (34.0-46.0) % Neutrophils # (1.3-7.7) k/uL Sodium (137-145) mmol/L Carbon Dioxide (22-30) mmol/L BUN (7-17) mg/dL Glucose (74-99) mg/dL POC Glucose (mg/dL) 127 H 125 H 120 H (75-99) mg/dL Calcium (8.4-10.2) mg/dL AST (14-36) U/L ALT (4-34) U/L Total Protein (6.3-8.2) g/dL Albumin (3.5-5.0) g/dL 11/13/21 11/13/21 11/13/21 Range/Units 02:27 04:29 04:30 WBC 15.9 H (3.8-10.6) k/uL RBC 3.28 L (3.80-5.40) m/uL Hgb 9.3 L (11.4-16.0) gm/dL Hct 29.5 L (34.0-46.0) % Neutrophils # 12.4 H (1.3-7.7) k/uL Sodium (137-145) mmol/L Carbon Dioxide (22-30) mmol/L BUN (7-17) mg/dL Glucose (74-99) mg/dL POC Glucose (mg/dL) 117 H 106 H (75-99) mg/dL Calcium (8.4-10.2) mg/dL AST (14-36) U/L ALT (4-34) U/L Total Protein (6.3-8.2) g/dL Albumin (3.5-5.0) g/dL 11/13/21 11/13/21 Range/Units 04:30 06:13 WBC (3.8-10.6) k/uL RBC (3.80-5.40) m/uL Hgb (11.4-16.0) gm/dL Hct (34.0-46.0) % Neutrophils # (1.3-7.7) k/uL Sodium 125 L (137-145) mmol/L Carbon Dioxide 21 L (22-30) mmol/L BUN 20 H (7-17) mg/dL Glucose 105 H (74-99) mg/dL POC Glucose (mg/dL) 136 H (75-99) mg/dL Calcium 7.7 L (8.4-10.2) mg/dL AST 89 H (14-36) U/L ALT 40 H (4-34) U/L Total Protein 5.2 L (6.3-8.2) g/dL Albumin 3.0 L (3.5-5.0) g/dL - Imaging and Cardiology Chest x-ray: report reviewed, image reviewed Assessment and Plan Assessment: 1. Severe mitral regurgitation with dilated mitral annulus, status post mitral valve repair 2. Hypertension 3. History of hypothyroid, currently hyperthyroid with TSH 0.036 on 11/08/2021, 0.062 with FT4 1.49 on 11/12/2021, has been off Synthroid per her primary since 11/08 4. Remote history of pneumonia 5. Occasional EtOH use, no history of withdrawal 6. Never smoker, preoperative FEV1 111% of predicted 7. Family history of premature coronary artery disease-father with first [place] at 42 years old, from [place] at 57 years old 8. Vaccinated against Covid 9. Preoperative nasal swab positive for MSSA, treated with mupirocin 10. Postoperative acute blood loss anemia, expected 11. Paroxysmal atrial fibrillation, known common occurrence after open heart surgery, status post ligation of the left atrial appendage Plan: 1. Continue aspirin, statin, beta jamee therapy. Will increase beta jamee therapy as tolerated 2. Continue amiodarone for A. fib prophylaxis. No anticoagulation at this time but may need at discharge 3. Wean O2 as tolerated. Encourage incentive spirometry is 10 times every hour while awake. Bronchodilators per pulmonology 4. Increase activity, ambulate as tolerated. PT/OT/cardiac rehab consulted 5. Will monitor daily labs and x-rays. Electrolyte replacement per protocol 6. GI/DVT prophylaxis 7. Pain control with current medication regimen 8. Insulin management per primary care service. Patient is not diabetic, hemoglobin A1c 5.7% 9. Will discontinue mediastinal chest tube, continue right pleural chest tube for another 24 hours 10. Discontinue Sanchez, may bladder scan and straight cath for >300 mL residual 11. Strict accurate intake and output. Daily weights 12. Continue to hold Synthroid for now. Management per primary care 13. More recommendations to follow as patient progresses
--- NOTE | 2021-11-13 08:17 | XR ---
EXAMINATION TYPE: XR chest 1V portable DATE OF EXAM: 11/13/2021 COMPARISON: 11/04/2021 INDICATION: Postop cardiac surgery TECHNIQUE: Single frontal view of the chest is obtained. FINDINGS: The heart size is mildly prominent. The pulmonary vasculature is normal. Minimal scattered increased lung markings are at the lung bases may be some atelectasis. Right-sided chest tube is present directed towards the apex. Mediastinal tube is in the midline. [place]-Kathy cathet er is been removed. Sheath remains present. IMPRESSION: 1. Mild subsegmental atelectasis. 2. Lines and catheters discussed above
[2021-11-13] MEDS: IPRATROPIUM-ALBUTEROL 3 ML NEB INHALATION SCH ×4 (08:21→19:59)
--- NOTE | 2021-11-13 08:30 | P.PN ---
Subjective Progress Note Date: 11/13/21 66-year-old female patient, underwent a mitral valve annuloplasty and she is currently postop day #0. The patient was brought into the intensive care unit. Pulmonary critical care services were consulted. I saw the patient immediately after she arrived from the operating room. She was hemodynamically stable on no pressors. The patient was sedated with propofol and the sedation was weaned down the propofol was at the rate of 10 g is particularly per minute. The patient was adequately sedated and the patient was, comfortable, sickle cell mechanical ventilator. The patient was an assist-control mode of mechanical ventilation at the rate of 12 with a tidal volume of 400 and FiO2 of 100% with a PEEP of 10. The FiO2 was up to 60%. Initial blood gases showed a pH of 7.31 with a pCO2 of 47 and pO2 of 207. The patient has chest tubes 1 mediastinal and 1 right pleural. The postop chest x-ray showed no acute abnormalities. No evidence of pneumothorax. ET tube was in a good location. The patient has a Peculiar-Kathy catheter in the right IJ which is also in a good location. The patient's cardiac rhythm is sinus. The patient has no hemodynamic instability. Pulmonary artery pressures were 35/19. Cardiac output was at 4.3 with an index of 2.2. Urine output was adequate. The blood work showed a white cell, 70.6 with a hemoglobin of 11.3 and a platelet count is 262. Output from the chest tubes are minimal at this point in time. No evidence of any bleeding. 11/12/2021 the patient is postop day #1. She is doing well. She extubated yesterday without any major difficulties and this morning she is on 3 L of oxygen by nasal cannula. The patient is using incentive spirometer, pulling approximately thousand. No respiratory distress. Chest x-ray from today essentially showing postsurgical changes. The patient has a right-sided chest tube, mediastinal chest tube and the Peculiar-Kathy catheter in place. ET tube is removed. Some atelectatic changes and left lung base. No evidence of any pneumothorax. Output from the chest tubes combined has been around 600 mL since came from the operating room. Earlier this morning, the patient went into atrial fibrillation with rapid ventricular response, and expected outcome of surgery, and the patient was started on amiodarone drip loading and subsequent maintenance will be following. The patient is also on beta blockers in the form of metoprolol and the dose has been increased up to 25 mg by mouth twice a day. No anticoagulants for now. Hemodynamically she is stable. Adequate urine output. White cell count of 12.3 with hemoglobin of 10 and a platelet count of 241. BUN is at 40 with a creatinine of 0.67 and his sodium level is at 133. TSH is at 1.49. 11/13/2021, the patient is postop day #2. She is currently on 3 L of oxygen by nasal cannula. She is using incentive spirometer and she is pulling approximately 1000 mL. No chest pain. Surgical wound site is dry clean and intact. The patient has a right pleural and mediastinal chest tube still in place. The chest x-ray from today shows elevation of the right hemidiaphragm. Chest tubes are in good location. The patient has some postsurgical changes o carlos alberto the sternum was interval wires. There may be some right lower lobe atelectasis. She is hemodynamically stable. She is in a sinus rhythm at this point in time. Note that she went into atrial fibrillation yesterday and she converted back into sinus with amiodarone. On today's blood work, sodium level is at 125 and a potassium level is at 4.3, BUN is at 20 with a creatinine of 1.0, LFTs show in AST of 89, ALT of 40, alkaline phosphatase of 49, the white cell count is at 15.9 with a hemoglobin of 9.3. The patient's is currently taken DuoNeb about treatments around the clock. She was taken off the IV amiodarone and she is on oral amiodarone 400 mg by mouth twice a day. She is on Lipitor 40 mg by mouth daily. She is also on Plavix 75 mg by mouth daily. She has adequate pain control for now. She was also started on metoprolol 25 mg by mouth twice a day. Note that the Peculiar-Kathy catheter was removed yesterday. The patient continues to have the cordis in her right IJ. Objective - Vital Signs Vital signs: Vital Signs Temp 98.4 F 11/13/21 08:00 Pulse 58 L 11/13/21 08:00 Resp 26 H 11/13/21 08:00 BP 135/53 11/13/21 05:00 Pulse Ox 96 11/13/21 08:00 FiO2 50 11/11/21 15:24 Intake & Output 11/12/21 11/13/21 11/13/21 18:59 06:59 18:59 Intake Total 896.252 798.018 26 Output Total 470 610 30 Balance 426.252 188.018 -4 Weight 98.5 kg Intake: IV 491 312 26 Lactated Ringers 1,000 ml 390 240 20 @ 20 mls/hr IV .Q24H YAZAN Rx#:[id number] cardiac output 20 pressure bags 81 72 6 Intake, IV Titration 5.252 6.018 Amount Insulin Regular 100 unit 5.252 6.018 In Sodium Chloride 0.9% 100 ml @ Per Protocol IV .Q0M YAZAN Rx#:[id number] Oral 400 480 Output: Chest Tube Drainage 220 190 mediastinal and right 220 190 pleural Urine 250 420 30 Other: Voiding Method Indwelling Catheter Indwelling Catheter ABP, PAP, CO, CI - Last Documented Arterial Blood Pressure 118/46 Pulmonary Artery Pressure 28/11 Cardiac Output 4.2 Cardiac Index 2.1 - Exam CONSTITUTIONAL: Appears comfortable, cooperative, no acute distress RESPIRATORY: Lungs sounds diminished bilaterally. Respirations even, nonlabore d. Currently on 3 L nasal cannula with oxygen saturation 96%. Able to achieve 1000 mL on incentive spirometry. Strong cough. CARDIOVASCULAR: S1, S2 present. Regular rate and rhythm, sinus rhythm on telemetry currently, has been going in and out of A. fib overnight. Sternum stable. Palpable peripheral pulses bilaterally. Trace bilateral lower extremity edema present. No calf pain or tenderness noted. Heart hugger in place with patient demonstrating appropriate use. Antiembolism stockings, SCDs present. GASTROINTESTINAL: Abdomen soft, nontender, nondistended. Hypoactive bowel alisha nds present 4 quadrants. Tolerating clear liquid. Negative flatus, positive belching GENITOURINARY: Sanchez present draining clear, yellow urine. Output overnight 30-35 mL per hour, 670 mL last 24 hours INTEGUMENTARY: Skin is warm and dry with evidence of good perfusion. Anterior chest incision well approximated and covered with dry intact dressing NEUROLOGIC: Cranial nerves II through XII intact MUSKULOSKELETAL: Able to move all extremities, strength equal bilaterally PSYCHIATRIC: Alert and oriented to person place and time, appropriate affect, intact judgment and insight INVASIVE LINES AND TUBES: Mediastinal/right pleural chest tubes present and connected to wall suction, no air leaks present, 170 mL serosanguineous drainage overnight, 400 mL since surgery. A/V epicardial pacemaker wires present, connected to generator, AAI mode with backup rate 50 bpm. Right internal jugula r Cordis, right radial arterial line present. - Labs CBC & Chem 7: 11/13/21 04:30 11/13/21 04:30 Labs: Abnormal Lab Results - Last 24 Hours (Table) 11/12/21 11/12/21 11/12/21 Range/Units 09:35 11:08 12:22 WBC (3.8-10.6) k/uL RBC (3.80-5.40) m/uL Hgb (11.4-16.0) gm/dL Hct (34.0-46.0) % Neutrophils # (1.3-7.7) k/uL Sodium (137-145) mmol/L Carbon Dioxide (22-30) mmol/L BUN (7-17) mg/dL Glucose (74-99) mg/dL POC Glucose (mg/dL) 107 H 170 H 129 H (75-99) mg/dL Calcium (8.4-10.2) mg/dL AST (14-36) U/L ALT (4-34) U/L Total Protein (6.3-8.2) g/dL Albumin (3.5-5.0) g/dL 11/12/21 11/12/21 11/12/21 Range/Units 13:44 14:58 16:39 WBC (3.8-10.6) k/uL RBC (3.80-5.40) m/uL Hgb (11.4-16.0) gm/dL Hct (34.0-46.0) % Neutrophils # (1.3-7.7) k/uL Sodium (137-145) mmol/L Carbon Dioxide (22-30) mmol/L BUN (7-17) mg/dL Glucose (74-99) mg/dL POC Glucose (mg/dL) 123 H 122 H 116 H (75-99) mg/dL Calcium (8.4-10.2) mg/dL AST (14-36) U/L ALT (4-34) U/L Total Protein (6.3-8.2) g/dL Albumin (3.5-5.0) g/dL 11/12/21 11/12/21 11/12/21 Range/Units 18:08 19:16 19:53 WBC (3.8-10.6) k/uL RBC (3.80-5.40) m/uL Hgb (11.4-16.0) gm/dL Hct (34.0-46.0) % Neutrophils # (1.3-7.7) k/uL Sodium (137-145) mmol/L Carbon Dioxide (22-30) mmol/L BUN (7-17) mg/dL Glucose (74-99) mg/dL POC Glucose (mg/dL) 130 H 131 H 127 H (75-99) mg/dL Calcium (8.4-10.2) mg/dL AST (14-36) U/L ALT (4-34) U/L Total Protein (6.3-8.2) g/dL Albumin (3.5-5.0) g/dL 11/12/21 11/13/21 11/13/21 Range/Units 22:33 00:24 02:27 WBC (3.8-10.6) k/uL RBC (3.80-5.40) m/uL Hgb (11.4-16.0) gm/dL Hct (34.0-46.0) % Neutrophils # (1.3-7.7) k/uL Sodium (137-145) mmol/L Carbon Dioxide (22-30) mmol/L BUN (7-17) mg/dL Glucose (74-99) mg/dL POC Glucose (mg/dL) 125 H 120 H 117 H (75-99) mg/dL Calcium (8.4-10.2) mg/dL AST (14-36) U/L ALT (4-34) U/L Total Protein (6.3-8.2) g/dL Albumin (3.5-5.0) g/dL 11/13/21 11/13/21 11/13/21 Range/Units 04:29 04:30 04:30 WBC 15.9 H (3.8-10.6) k/uL RBC 3.28 L (3.80-5.40) m/uL Hgb 9.3 L (11.4-16.0) gm/dL Hct 29.5 L (34.0-46.0) % Neutrophils # 12.4 H (1.3-7.7) k/uL Sodium 125 L (137-145) mmol/L Carbon Dioxide 21 L (22-30) mmol/L BUN 20 H (7-17) mg/dL Glucose 105 H (74-99) mg/dL POC Glucose (mg/dL) 106 H (75-99) mg/dL Calcium 7.7 L (8.4-10.2) mg/dL AST 89 H (14-36) U/L ALT 40 H (4-34) U/L Total Protein 5.2 L (6.3-8.2) g/dL Albumin 3.0 L (3.5-5.0) g/dL 11/13/21 11/13/21 Range/Units 06:13 08:12 WBC (3.8-10.6) k/uL RBC (3.80-5.40) m/uL Hgb (11.4-16.0) gm/dL Hct (34.0-46.0) % Neutrophils # (1.3-7.7) k/uL Sodium (137-145) mmol/L Carbon Dioxide (22-30) mmol/L BUN (7-17) mg/dL Glucose (74-99) mg/dL POC Glucose (mg/dL) 136 H 131 H (75-99) mg/dL Calcium (8.4-10.2) mg/dL AST (14-36) U/L ALT (4-34) U/L Total Protein (6.3-8.2) g/dL Albumin (3.5-5.0) g/dL Assessment and Plan Plan: Mitral valve annuloplasty, surgery was done for severe symptomatically mitral regurgitation the patient is postop day #2. The patient is currently hemodynamically stable on no pressors. Adequate cardiac output. Adequate hemodynamics. The patient remains hemodynamically stable on the first day postop. The patient is doing well. She did go into atrial fibrillation and expected outcome of surgery New onset A. fib expected outcome of surgery converted into normal sinus rhythm and the patient is currently on a combination of oral amiodarone and metoprolol. No anticoagulants for now. Post thoracotomy, extubated and the patient currently has right pleural and mediastinal chest tube in place. No evidence of any pneumothorax. Currently on 3 L of oxygen by nasal cannula. The chest x-ray showing elevation of the right hemidiaphragm, could be related to right lower lobe atelectasis along with some sort effusion. Chest tubes are still in place. The patient has a right pleural chest tube and mediastinal chest tube. Hypothyroidism Hypertension Colonic polyps Chronic anxiety Hyponatremia, acute, we'll monitor. Plan Currently on 3 L O2 nasal cannula, continue using incentive spirometer Chest x-ray was reviewed May remove the mediastinal chest tube Continue the amiodarone and the metoprolol for now Use of anticoagulants per cardiology Monitor the sodium level Anticoagulation is atrial fibrillation continues to be persistent Peculiar-Kathy catheter removed Advance diet Adequate pain control Insulin drip is discontinued and the patient is doing to placed on a sliding scale insulin coverage We'll continue to follow.
[2021-11-13] MEDS ORDERED: FUROSEMIDE 10 MG/ML 4 ML VIAL IV STA (10:25)
[2021-11-13 12:10] LABS: Glucose,Whole Blood 120 mg/dL (75-99)
[2021-11-13] MEDS: INSULIN ASPART (NovoLOG) 100 UNIT/ML VIAL SQ SCH ×3 (12:13→21:26)
[2021-11-13 12:31] LABS: Calcium 7.7 mg/dL (8.4-10.2); Potassium 4.1 mmol/L (3.5-5.1)
[2021-11-13 16:11] LABS: Glucose,Whole Blood 118 mg/dL (75-99)
[2021-11-13 16:42] VITALS: BMI 36.1
--- NOTE | 2021-11-13 17:24 | P.PN ---
Subjective Progress Note Date: 11/13/21 66-year-old female patient, history of hypertension, hypothyroidism and mitral valve prolapse, underwent a mitral valve annuloplasty. The patient was brought into the intensive care unit postoperatively and was intubated and sedated. Initial blood gases showed a pH of 7.31 with a pCO2 of 47 and pO2 of 207. The patient has chest tubes 1 mediastinal and 1 right pleural. The postop chest x- ray showed no acute abnormalities. No evidence of pneumothorax. Patient was extubated yesterday and is currently on nasal cannula Earlier this morning, the patient went into atrial fibrillation with rapid vent ricular response, and expected outcome of surgery, and the patient was started on amiodarone drip loading and subsequent maintenance will be following. The patient is also on beta blockers in the form of metoprolol and the dose has been increased up to 25 mg by mouth twice a day. No anticoagulants for now. Hemodynamically she is stable. Adequate urine output. White cell count of 12.3 with hemoglobin of 10 and a platelet count of 241. BUN is at 40 with a creatinine of 0.67 and his sodium level is at 133. TSH is at 1.49. 11/13/2021 Patient is seen and evaluated sitting up in bedside chair in ICU; postop day #2. She is currently on 3 L of oxygen by nasal cannula. No chest pain. The patient has a right pleural and mediastinal chest tube still in place. The chest x-ray from today shows elevation of the right hemidiaphragm. Chest tubes are in good location. There may be some right lower lobe atelectasis. She is hemodynamically stable. She is in a sinus rhythm at this point in time; she went into atrial fibrillation yesterday and she converted back into sinus with amiodarone; she is on oral amiodarone 400 mg by mouth twice a day. Blood work reveals, sodium level is at 125 and a potassium level is at 4.3, BUN is at 20 with a creatinine of 1.0, LFTs show in AST of 89, ALT of 40, alkaline phosphatase of 49, the white cell count is at 15.9 with a hemoglobin of 9.3. She is on Lipitor 40 mg by mouth daily. She is also on Plavix 75 mg by mouth d aily. She has adequate pain control for now. She was also started on metoprolol 25 mg by mouth twice a day. Objective - Vital Signs Vital signs: Vital Signs Temp 98.4 F 11/13/21 08:00 Pulse 58 L 11/13/21 14:00 Resp 25 H 11/13/21 14:00 BP 121/57 11/13/21 14:00 Pulse Ox 97 11/13/21 14:00 FiO2 50 11/11/21 15:24 Intake & Output 11/12/21 11/13/21 11/13/21 18:59 06:59 18:59 Intake Total 896.252 798.018 482 Output Total 470 610 805 Balance 426.252 188.018 -323 Weight 98.5 kg Intake: IV 491 312 182 Lactated Ringers 1,000 ml 390 240 140 @ 20 mls/hr IV .Q24H YAZAN Rx#:[id number] cardiac output 20 pressure bags 81 72 42 Intake, IV Titration 5.252 6.018 Amount Insulin Regular 100 unit 5.252 6.018 In Sodium Chloride 0.9% 100 ml @ Per Protocol IV .Q0M YAZAN Rx#:[id number] Oral 400 480 300 Output: Chest Tube Drainage 220 190 50 mediastinal and right 220 190 50 pleural Urine 250 420 755 Other: Voiding Method Indwelling Catheter Indwelling Catheter Indwelling Catheter ABP, PAP, CO, CI - Last Documented Arterial Blood Pressure 141/75 Pulmonary Artery Pressure 28/11 Cardiac Output 4.2 Cardiac Index 2.1 - Exam Head exam; There was no scleral icterus or corneal arcus. Mucous membranes were moist. Neck was supple and without jugular venous distension, thyromegaly, or carotid bruits. Carotids were easily palpable bilaterally. Lungs were clear to auscultation and percussion, and with normal diaphragmatic excursion. No wheezes or rales were noted. The patient has a right pleural and mediastinal chest tube both her mother place. Cardiac exam; The rhythm is irregular consistent of atrial fibrillation Abdominal exam revealed normal bowel sounds. The abdomen was soft, non-tender, and without masses, organomegaly, or appreciable enlargement of the abdominal aorta. Extremities; palpable pulses. There was no cyanosis, clubbing or edema. Skin; no evidence of significant rashes, suspicious appearing nevi or other concerning lesions. Neurologic awake and alert and there is no focal neurological deficits. - Labs CBC & Chem 7: 11/13/21 04:30 11/13/21 12:11 Labs: Abnormal Lab Results - Last 24 Hours (Table) 11/12/21 11/12/21 11/12/21 Range/Units 14:58 16:39 18:08 WBC (3.8-10.6) k/uL RBC (3.80-5.40) m/uL Hgb (11.4-16.0) gm/dL Hct (34.0-46.0) % Neutrophils # (1.3-7.7) k/uL Sodium (137-145) mmol/L Chloride (98-107) mmol/L Carbon Dioxide (22-30) mmol/L BUN (7-17) mg/dL Creatinine (0.52-1.04) mg/dL Glucose (74-99) mg/dL POC Glucose (mg/dL) 122 H 116 H 130 H (75-99) mg/dL Calcium (8.4-10.2) mg/dL AST (14-36) U/L ALT (4-34) U/L Total Protein (6.3-8.2) g/dL Albumin (3.5-5.0) g/dL 11/12/21 11/12/21 11/12/21 Range/Units 19:16 19:53 22:33 WBC (3.8-10.6) k/uL RBC (3.80-5.40) m/uL Hgb (11.4-16.0) gm/dL Hct (34.0-46.0) % Neutrophils # (1.3-7.7) k/uL Sodium (137-145) mmol/L Chloride (98-107) mmol/L Carbon Dioxide (22-30) mmol/L BUN (7-17) mg/dL Creatinine (0.52-1.04) mg/dL Glucose (74-99) mg/dL POC Glucose (mg/dL) 131 H 127 H 125 H (75-99) mg/dL Calcium (8.4-10.2) mg/dL AST (14-36) U/L ALT (4-34) U/L Total Protein (6.3-8.2) g/dL Albumin (3.5-5.0) g/dL 11/13/21 11/13/21 11/13/21 Range/Units 00:24 02:27 04:29 WBC (3.8-10.6) k/uL RBC (3.80-5.40) m/uL Hgb (11.4-16.0) gm/dL Hct (34.0-46.0) % Neutrophils # (1.3-7.7) k/uL Sodium (137-145) mmol/L Chloride (98-107) mmol/L Carbon Dioxide (22-30) mmol/L BUN (7-17) mg/dL Creatinine (0.52-1.04) mg/dL Glucose (74-99) mg/dL POC Glucose (mg/dL) 120 H 117 H 106 H (75-99) mg/dL Calcium (8.4-10.2) mg/dL AST (14-36) U/L ALT (4-34) U/L Total Protein (6.3-8.2) g/dL Albumin (3.5-5.0) g/dL 11/13/21 11/13/21 11/13/21 Range/Units 04:30 04:30 06:13 WBC 15.9 H (3.8-10.6) k/uL RBC 3.28 L (3.80-5.40) m/uL Hgb 9.3 L (11.4-16.0) gm/dL Hct 29.5 L (34.0-46.0) % Neutrophils # 12.4 H (1.3-7.7) k/uL Sodium 125 L (137-145) mmol/L Chloride (98-107) mmol/L Carbon Dioxide 21 L (22-30) mmol/L BUN 20 H (7-17) mg/dL Creatinine (0.52-1.04) mg/dL Glucose 105 H (74-99) mg/dL POC Glucose (mg/dL) 136 H (75-99) mg/dL Calcium 7.7 L (8.4-10.2) mg/dL AST 89 H (14-36) U/L ALT 40 H (4-34) U/L Total Protein 5.2 L (6.3-8.2) g/dL Albumin 3.0 L (3.5-5.0) g/dL 11/13/21 11/13/21 11/13/21 Range/Units 08:12 12:08 12:11 WBC (3.8-10.6) k/uL RBC (3.80-5.40) m/uL Hgb (11.4-16.0) gm/dL Hct (34.0-46.0) % Neutrophils # (1.3-7.7) k/uL Sodium 127 L (137-145) mmol/L Chloride 96 L (98-107) mmol/L Carbon Dioxide (22-30) mmol/L BUN 23 H (7-17) mg/dL Creatinine 1.08 H (0.52-1.04) mg/dL Glucose 119 H (74-99) mg/dL POC Glucose (mg/dL) 131 H 120 H (75-99) mg/dL Calcium 7.7 L (8.4-10.2) mg/dL AST (14-36) U/L ALT (4-34) U/L Total Protein (6.3-8.2) g/dL Albumin (3.5-5.0) g/dL Assessment and Plan Assessment: 1. Mitral valve annuloplasty for severe symptomatic mitral valve regurgitation; POD 1 - Patient is post thoracotomy, extubated and currently has right lower lobe and mediastinal chest tubes in place - Cardiothoracic surgery/intensive care team on board 2. New onset atrial fibrillation; expected; patient is rate controlled on amiodarone; no anticoagulation therapy recommended 3. Hypertension; patient has been placed on metoprolol 25 mg twice a day; hydrochlorothiazide remains on hold 4. Hypothyroidism; TSH at 0.062; patient takes levothyroxine 150 MCG at home; we will continue current dose and order free T4 5. Hyperlipidemia; Lipitor 40 mg by mouth daily DVT prophylaxis; SCDs; plan for anticoagulation atrial fibrillation becomes persistent CODE STATUS; full code
[2021-11-13] MEDS ORDERED: SODIUM BICARB 8.4% 50 ML SYR (1 MEQ/ML) IV STA (20:44)
[2021-11-13] MEDS ORDERED: SODIUM CHLORIDE 0.9% 1,000 ML IV ONE (20:44)
[2021-11-13] MEDS ORDERED: DEXTROSE 5% IN WATER 1,000 ML with SODIUM BICARB (1 MEQ/ML) 150 ML IV SCH (20:45)
[2021-11-13 21:23] LABS: Glucose,Whole Blood 111 mg/dL (75-99)
[2021-11-13] MEDS: SENNOSIDES-DOCUSATE SODIUM 1 EACH TAB PO SCH (21:25)
[2021-11-13] MEDS: LACTATED RINGERS 1,000 ML IV SCH (23:15)
[2021-11-14 07:12] LABS: Glucose,Whole Blood 132 mg/dL (75-99)
[2021-11-14] MEDS: INSULIN ASPART (NovoLOG) 100 UNIT/ML VIAL SQ SCH ×4 (07:12→20:58)
[2021-11-14] MEDS: KETOROLAC 15 MG/ML 1 ML VIAL IVP SCH ×2 (07:12→14:55)
--- NOTE | 2021-11-14 07:29 | P.PN ---
Subjective HISTORY OF PRESENTING ILLNESS Patient is a pleasant 66 -year-old female with history of hypertension, GERD, hypothyroidism, severe mitral regurgitation. She has been having increased shortness breath over the last 3 months and therefore underwent workup and found have severe mitral regurgitation. She underwent mitral valve repair 11/11/2021 with a 28 mm [employer] AnnuloFlex band, left atrial appendage clip without incident. She was extubated and currently this morning doing well and admitting to some chest pain around the incision worse with deep inspiration however not much shortness breath. She did have a brief episode of atrial fibrillation was placed on amiodarone with conversion back to sinus rhythm. She did admit to palpitations during this episode and admits to some palpitations at home or last few years which felt similar to this. No history of stroke or TIA. She was noted to be mildly hyperthyroid on blood work. 11/13 Patient seen and examined. Patient still having intermittent episodes of atrial fibrillation with predominantly controlled ventricular rates. Not overly symptomatic. Denies any chest pain other than the incision. Shortness breath relatively mild. Does have mild appetite however on clear liquids. 11/14 Patient seen and examined. Patient denies any significant chest pain, the sternotomy incision appears to slowly be improving. Denies shortness breath. Shee is tolerating a diet. Has remained in sinus rhythm since yesterday. PHYSICAL EXAMINATION Vital signs reviewed. CONSTITUTIONAL: No apparent distress. HEENT: Head is normocephalic. Pupils are equal, round. Sclerae anicteric. Mucous membranes of the mouth are moist. No JVD. No carotid bruit. CHEST EXAMINATION: Lungs are clear to auscultation. No chest wall tenderness is noted on palpation or with deep breathing. HEART EXAMINATION: Regular rate and rhythm. S1, S2 heard. No murmurs, gallops or rub. ABDOMEN: Soft, nontender. Positive bowel sounds. EXTREMITIES: 2+ peripheral pulses, no lower extremity edema and no calf tendern ess. NEUROLOGIC EXAMINATION: Patient is awake, alert and oriented x3. Assessment 1. Severe mitral regurgitation status post mitral valve repair 2. Paroxysmal atrial fibrillation, likely postoperative however additional history of similar palpitations in the past 3. Hypertension 4. Hypothyroidism currently hyperthyroid likely iatrogenic 5. Palpitations Plan: At this point her CHADSVASC is 2 for hypertension and female however this may all be postoperative A. fib and likely exacerbated by the hyperthyroid state. She did also had left atrial appendage closure. At this time continue with antiplatelets and if has recurrent episodes further down the road would recommend anticoagulation at that time. Contninue supportive care. Patient appears to be recovering well. Objective - Vital Signs Vital signs: Vital Signs Temp 97.9 F 11/14/21 04:00 Pulse 63 11/14/21 07:00 Resp 15 11/14/21 07:00 BP 132/69 11/14/21 07:00 Pulse Ox 96 11/14/21 06:00 FiO2 50 11/11/21 15:24 Intake & Output 11/13/21 11/14/21 11/14/21 18:59 06:59 18:59 Intake Total 803 299 Output Total 1200 770 Balance -397 -471 Weight 98.5 kg Intake: IV 303 299 Lactated Ringers 1,000 ml 240 260 @ 20 mls/hr IV .Q24H YAZAN Rx#:[id number] pressure bags 63 39 Oral 500 Output: Chest Tube Drainage 60 65 Pleural Catheter Right 10 65 mediastinal and right 50 pleural Urine 1140 705 Other: Voiding Method Indwelling Catheter Indwelling Catheter ABP, PAP, CO, CI - Last Documented Arterial Blood Pressure 141/75 Pulmonary Artery Pressure 28/11 Cardiac Output 4.2 Cardiac Index 2.1 - Labs CBC & Chem 7: 11/13/21 04:30 11/13/21 12:11 Labs: Abnormal Lab Results - Last 24 Hours (Table) 11/13/21 11/13/21 11/13/21 Range/Units 08:12 12:08 12:11 Sodium 127 L (137-145) mmol/L Chloride 96 L (98-107) mmol/L BUN 23 H (7-17) mg/dL Creatinine 1.08 H (0.52-1.04) mg/dL Glucose 119 H (74-99) mg/dL POC Glucose (mg/dL) 131 H 120 H (75-99) mg/dL Calcium 7.7 L (8.4-10.2) mg/dL 11/13/21 11/13/21 11/14/21 Range/Units 16:10 21:21 07:10 Sodium (137-145) mmol/L Chloride (98-107) mmol/L BUN (7-17) mg/dL Creatinine (0.52-1.04) mg/dL Glucose (74-99) mg/dL POC Glucose (mg/dL) 118 H 111 H 132 H (75-99) mg/dL Calcium (8.4-10.2) mg/dL
--- NOTE | 2021-11-14 07:30 | P.PN ---
Subjective Progress Note Date: 11/14/21 Principal diagnosis: Severe mitral regurgitation with dilated mitral annulus. Previous medical history of hypertension, hypothyroid, remote history of pneumonia, occasional EtOH use, never smoker, family history of premature coronary artery disease- father with first [place] at 42 years old, [place] 57 years old. Vaccinated against Covid. Preoperative nasal swab positive for MSSA POD #3 mitral valve repair with a #28 mm [employer] AnnuloFlex band, clip ligation of the left atrial appendage with a 35 mm AtriClip and intraoperative transesophageal echocardiogram Postoperative acute blood loss anemia, expected given hemodilution and cardiopulmonary bypass pump Paroxysmal atrial fibrillation, known common occurrence after open heart surgery The patient was seen and examined sitting up in a recliner this morning in the intensive care unit in no acute distress. She is currently in sinus rhythm, no further atrial fibrillation noted, denies shortness of breath. She does complain of postsurgical chest pain but states it is controlled on current medication regimen and is better since removing mediastinal chest tube. Hemodynamically stable. She did ambulate in the hallway yesterday with assist. Right internal jugular Cordis, right pleural chest tube remains. Objective - Vital Signs Vital signs: Vital Signs Temp 97.9 F 11/14/21 04:00 Pulse 63 11/14/21 07:00 Resp 15 11/14/21 07:00 BP 132/69 11/14/21 07:00 Pulse Ox 96 11/14/21 06:00 FiO2 50 11/11/21 15:24 Intake & Output 11/13/21 11/14/21 11/14/21 18:59 06:59 18:59 Intake Total 803 299 Output Total 1200 770 Balance -397 -471 Weight 98.5 kg Intake: IV 303 299 Lactated Ringers 1,000 ml 240 260 @ 20 mls/hr IV .Q24H [facility] Rx#:[id number] pressure bags 63 39 Oral 500 Output: Chest Tube Drainage 60 65 Pleural Catheter Right 10 65 mediastinal and right 50 pleural Urine 1140 705 Other: Voiding Method Indwelling Catheter Indwelling Catheter ABP, PAP, CO, CI - Last Documented Arterial Blood Pressure 141/75 Pulmonary Artery Pressure 28/11 Cardiac Output 4.2 Cardiac Index 2.1 - Exam CONSTITUTIONAL: Appears comfortable, cooperative, no acute distress RESPIRATORY: Lungs sounds diminished bilaterally. Respirations even, nonla bored. Currently on 2 L nasal cannula with oxygen saturation 96%. Able to achieve 1250 mL on incentive spirometry. Strong cough. CARDIOVASCULAR: S1, S2 present. Regular rate and rhythm, sinus rhythm on telemetry. Sternum stable. Palpable peripheral pulses bilaterally. Trace bilateral lower extremity edema present. No calf pain or tenderness noted. Heart hugger in place with patient demonstrating appropriate use. Antiembolism stockings, SCDs present. GASTROINTESTINAL: Abdomen soft, nontender, nondistended. Active bowel sounds present 4 quadrants. Tolerating diet. Positive flatus GENITOURINARY: Sanchez present draining clear, yellow urine. Output overnight 40-70 mL per hour, 1765 mL last 24 hours INTEGUMENTARY: Skin is warm and dry with evidence of good perfusion. Anterior chest incision well approximated and covered with dry intact dressing NEUROLOGIC: Cranial nerves II through XII intact MUSKULOSKELETAL: Able to move all extremities, strength equal bilaterally PSYCHIATRIC: Alert and oriented to person place and time, appropriate affect, intact judgment and insight INVASIVE LINES AND TUBES: Right pleural chest tubes present and connected to wall suction, no air leaks present, 55 mL serosanguineous drainage overnight, 110 mL in the last 24 hours. A/V epicardial pacemaker wires present, connected to generator, AAI mode with backup rate 50 bpm. Right internal jugular Cordis present. - Allied health notes Allied health notes reviewed: nursing - Labs CBC & Chem 7: 11/14/21 07:04 11/14/21 07:04 Labs: Abnormal Lab Results - Last 24 Hours (Table) 11/13/21 11/13/21 11/13/21 Range/Units 08:12 12:08 12:11 Sodium 127 L (137-145) mmol/L Chloride 96 L (98-107) mmol/L BUN 23 H (7-17) mg/dL Creatinine 1.08 H (0.52-1.04) mg/dL Glucose 119 H (74-99) mg/dL POC Glucose (mg/dL) 131 H 120 H (75-99) mg/dL Calcium 7.7 L (8.4-10.2) mg/dL 11/13/21 11/13/21 11/14/21 Range/Units 16:10 21:21 07:10 Sodium (137-145) mmol/L Chloride (98-107) mmol/L BUN (7-17) mg/dL Creatinine (0.52-1.04) mg/dL Glucose (74-99) mg/dL POC Glucose (mg/dL) 118 H 111 H 132 H (75-99) mg/dL Calcium (8.4-10.2) mg/dL - Imaging and Cardiology Chest x-ray: image reviewed Assessment and Plan Assessment: 1. Severe mitral regurgitation with dilated mitral annulus, status post mitral valve repair 2. Hypertension 3. History of hypothyroid, currently hyperthyroid with TSH 0.036 on 11/08/2021, 0.062 with FT4 1.49 on 11/12/2021, has been off Synthroid per her primary since 11/08 4. Remote history of pneumonia 5. Occasional EtOH use, no history of withdrawal 6. Never smoker, preoperative FEV1 111% of predicted 7. Family history of premature coronary artery disease-father with first [place] at 42 years old, [place] 57 years old 8. Vaccinated against Covid 9. Preoperative nasal swab positive for MSSA, treated with mupirocin 10. Postoperative acute blood loss anemia, expected 11. Paroxysmal atrial fibrillation, known common occurrence after open heart surgery, status post ligation of the left atrial appendage Plan: 1. Continue aspirin, statin, beta jamee therapy. Will increase beta jamee therapy as tolerated 2. Continue amiodarone for A. fib prophylaxis. No anticoagulation at this time but may need at discharge 3. Wean O2 as tolerated. Encourage incentive spirometry is 10 times every hour while awake. Bronchodilators per pulmonology 4. Increase activity, ambulate as tolerated. PT/OT/cardiac rehab consulted 5. Will monitor daily labs and x-rays. Electrolyte replacement per protocol. Will give IV lasix 6. GI/DVT prophylaxis 7. Pain control with current medication regimen 8. Insulin management per primary care service. Patient is not diabetic, hemoglobin A1c 5.7% 9. Will discontinue right pleural chest tube. Discontinue cordis. Ground epicardial pacer wires 10. Discontinue Sanchez, may bladder scan and straight cath for >300 mL residual 11. Strict accurate intake and output. Daily weights 12. Continue to hold Synthroid for now. Management per primary care 13. More recommendations to follow as patient progresses
[2021-11-14 07:34] LABS: Basophils # (A) 0.1 k/uL (0-0.2); Basophils % (A) 0 %; Eosinophils # (A) 0.4 k/uL (0-0.7); Eosinophils % (A) 3 %; HCT 29.3 % (34.0-46.0); HGB 9.4 gm/dL (11.4-16.0); Lymphocytes # (A) 1.3 k/uL (1.0-4.8); Lymphocytes % (A) 9 %; MCV 90.6 fL (80.0-100.0); Mean Platelet Volume 8.4; Monocytes # (A) 0.8 k/uL (0-1.0); Monocytes % (A) 5 %; Neutrophils # (A) 12.3 k/uL (1.3-7.7); Neutrophils % (A) 82 %; Platelet Count 243 k/uL (150-450); RBC 3.24 m/uL (3.80-5.40); RDW 13.5 % (11.5-15.5)
[2021-11-14 07:59] LABS: Albumin 3.5 g/dL (3.5-5.0); Potassium 4.5 mmol/L (3.5-5.1); Total Bilirubin 0.9 mg/dL (0.2-1.3); Total Protein 5.9 g/dL (6.3-8.2)
--- NOTE | 2021-11-14 08:19 | XR ---
EXAMINATION TYPE: XR chest 1V portable DATE OF EXAM: 11/14/2021 COMPARISON: 11/13/2021 INDICATION: Post cardiac surgery TECHNIQUE: Single frontal view of the chest is obtained. FINDINGS: The heart size is mildly prominent. The pulmonary vasculature is normal. There is elevation of the right diaphragm. Right-sided chest tube is present. Extensive. Mediastinal tube is been removed. Sternotomy wires are present from cardiac surgery. Right central venous cathet er sheath is present IMPRESSION: 1. Lines and catheters discussed above. 2. No suspicious infiltrates.
[2021-11-14] MEDS ORDERED: FUROSEMIDE 10 MG/ML 4 ML VIAL IV STA (08:37)
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
[2021-11-14] MEDS: IPRATROPIUM-ALBUTEROL 3 ML NEB INHALATION SCH ×4 (08:46→19:20)
[2021-11-14] MEDS: CLOPIDOGREL 75 MG TAB PO SCH (09:03)
[2021-11-14] MEDS: ATORVASTATIN 40 MG TAB PO SCH (09:03)
[2021-11-14] MEDS: METOPROLOL TARTRATE 25 MG TAB PO SCH ×2 (09:03→21:04)
[2021-11-14] MEDS: PANTOPRAZOLE 40 MG TABLET PO SCH (09:03)
[2021-11-14] MEDS: HEPARIN SODIUM,PORCINE/PF 5,000 UNIT/0.5 ML SYRINGE SQ SCH ×3 (09:03→23:22)
[2021-11-14] MEDS: ASPIRIN 325 MG TAB PO SCH (09:03)
[2021-11-14] MEDS: AMIODARONE 200 MG TAB PO SCH ×2 (09:03→21:04)
[2021-11-14] MEDS: MUPIROCIN 2% OINT 22 GM TUBE NASAL SCH ×2 (09:05→21:04)
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
[2021-11-14 11:46] LABS: Glucose,Whole Blood 142 mg/dL (75-99)
[2021-11-14 16:38] LABS: Glucose,Whole Blood 114 mg/dL (75-99)
[2021-11-14] MEDS: ONDANSETRON 4 MG/2 ML VIAL IVP PRN (16:39)
[2021-11-14 20:58] LABS: Glucose,Whole Blood 111 mg/dL (75-99)
[2021-11-14] MEDS ORDERED: FAMOTIDINE 20 MG TAB PO SCH (21:00)
[2021-11-14] MEDS: SENNOSIDES-DOCUSATE SODIUM 1 EACH TAB PO SCH (21:04)
[2021-11-15] MEDS ORDERED: ALPRAZolam 0.25 MG TAB PO STA (01:24)
[2021-11-15 06:35] LABS: Glucose,Whole Blood 106 mg/dL (75-99)
[2021-11-15] MEDS: INSULIN ASPART (NovoLOG) 100 UNIT/ML VIAL SQ SCH ×4 (06:35→20:51)
[2021-11-15] MEDS: PANTOPRAZOLE 40 MG TABLET PO SCH (06:35)
[2021-11-15 07:02] LABS: HCT 28.2 % (34.0-46.0); MCH 28.9 pg (25.0-35.0); MCHC 31.9 g/dL (31.0-37.0); MCV 90.6 fL (80.0-100.0); Platelet Count 252 k/uL (150-450); RBC 3.11 m/uL (3.80-5.40); RDW 13.5 % (11.5-15.5)
[2021-11-15 07:12] LABS: Albumin 3.3 g/dL (3.5-5.0); Potassium 4.1 mmol/L (3.5-5.1); Total Bilirubin 0.6 mg/dL (0.2-1.3); Total Protein 5.6 g/dL (6.3-8.2)
[2021-11-15] MEDS: IPRATROPIUM-ALBUTEROL 3 ML NEB INHALATION SCH ×4 (07:36→20:43)
--- NOTE | 2021-11-15 07:54 | P.PN ---
Subjective Progress Note Date: 11/15/21 Principal diagnosis: Severe mitral regurgitation with dilated mitral annulus. Previous medical history of hypertension, hypothyroid, remote history of pneumonia, occasional EtOH use, never smoker, family history of premature coronary artery disease- father with first AR at 42 years old, from AR at 57 years old. Vaccinated against Covid. Preoperative nasal swab positive for MSSA POD #4 mitral valve repair with a #28 mm [employer] AnnuloFlex band, clip ligation of the left atrial appendage with a 35 mm AtriClip and intraoperative transesophageal echocardiogram Postoperative acute blood loss anemia, expected given hemodilution and cardiopulmonary bypass pump Paroxysmal atrial fibrillation, known common occurrence after open heart surgery The patient was seen and examined sitting up in a recliner this morning in the intensive care unit in no acute distress eating breakfast. She remains in sinus rhythm, no further atrial fibrillation noted, denies shortness of breath. She does complain of postsurgical chest pain but states it is controlled on current medication regimen. She did admit to a panic attack last night, was given Xanax as per her home dose and states it did help. Hemodynamically stable. She did ambulate in the hallway yesterday. Remains on 2 L nasal cannula with oxygen saturation in the mid to high 90s, on room air she was 88%. Hoping to go home soon. Objective - Vital Signs Vital signs: Vital Signs Temp 98.6 F 11/14/21 20:00 Pulse 60 11/15/21 07:36 Resp 18 11/15/21 07:36 BP 126/64 11/15/21 02:00 Pulse Ox 99 11/15/21 07:36 FiO2 50 11/11/21 15:24 Intake & Output 11/14/21 11/15/21 11/15/21 18:59 06:59 18:59 Intake Total 656 50 Output Total 700 Balance -44 50 Intake: IV 6 pressure bags 6 Oral 650 50 Output: Urine 700 Other: Voiding Method Indwelling Catheter # Voids 1 1 ABP, PAP, CO, CI - Last Documented Arterial Blood Pressure 141/75 Pulmonary Artery Pressure 28/11 Cardiac Output 4.2 Cardiac Index 2.1 - Exam CONSTITUTIONAL: Appears comfortable, cooperative, no acute distress RESPIRATORY: Lungs sounds diminished bilaterally, right greater than left. Respirations even, nonlabored. Currently on 2 L nasal cannula with oxygen saturation 94%. Able to achieve 1250 mL on incentive spirometry. Strong cough. CARDIOVASCULAR: S1, S2 present. Regular rate and rhythm, sinus rhythm on t elemetry. Sternum stable. Palpable peripheral pulses bilaterally. Trace bilateral lower extremity edema present. No calf pain or tenderness noted. Heart hugger in place with patient demonstrating appropriate use. Antiembolism stockings, SCDs present. GASTROINTESTINAL: Abdomen soft, nontender, nondistended. Active bowel sounds present 4 quadrants. Tolerating diet. Positive bowel movement last night per patient GENITOURINARY: Sanchez discontinued yesterday, patient has voided although was not measured INTEGUMENTARY: Skin is warm and dry with evidence of good perfusion. Anterior chest incision well approximated and covered with dry intact dressing NEUROLOGIC: Cranial nerves II through XII intact MUSKULOSKELETAL: Able to move all extremities, strength equal bilaterally PSYCHIATRIC: Alert and oriented to person place and time, appropriate affect, intact judgment and insight INVASIVE LINES AND TUBES: A/V epicardial pacemaker wires present, grounded - Allied health notes Allied health notes reviewed: nursing - Labs CBC & Chem 7: 11/15/21 06:25 11/15/21 06:25 Labs: Abnormal Lab Results - Last 24 Hours (Table) 11/14/21 11/14/21 11/14/21 Range/Units 07:04 11:45 16:36 WBC (3.8-10.6) k/uL RBC (3.80-5.40) m/uL Hgb (11.4-16.0) gm/dL Hct (34.0-46.0) % Sodium 130 L (137-145) mmol/L Chloride 97 L (98-107) mmol/L BUN 28 H (7-17) mg/dL Glucose 123 H (74-99) mg/dL POC Glucose (mg/dL) 142 H 114 H (75-99) mg/dL Calcium 8.0 L (8.4-10.2) mg/dL AST 82 H (14-36) U/L ALT 59 H (4-34) U/L Total Protein 5.9 L (6.3-8.2) g/dL Albumin (3.5-5.0) g/dL 11/14/21 11/15/21 11/15/21 Range/Units 20:57 06:25 06:25 WBC 11.0 H (3.8-10.6) k/uL RBC 3.11 L (3.80-5.40) m/uL Hgb 9.0 L (11.4-16.0) gm/dL Hct 28.2 L (34.0-46.0) % Sodium 133 L (137-145) mmol/L Chloride (98-107) mmol/L BUN 22 H (7-17) mg/dL Glucose 101 H (74-99) mg/dL POC Glucose (mg/dL) 111 H (75-99) mg/dL Calcium 8.0 L (8.4-10.2) mg/dL AST 67 H (14-36) U/L ALT 66 H (4-34) U/L Total Protein 5.6 L (6.3-8.2) g/dL Albumin 3.3 L (3.5-5.0) g/dL 11/15/21 Range/Units 06:33 WBC (3.8-10.6) k/uL RBC (3.80-5.40) m/uL Hgb (11.4-16.0) gm/dL Hct (34.0-46.0) % Sodium (137-145) mmol/L Chloride (98-107) mmol/L BUN (7-17) mg/dL Glucose (74-99) mg/dL POC Glucose (mg/dL) 106 H (75-99) mg/dL Calcium (8.4-10.2) mg/dL AST (14-36) U/L ALT (4-34) U/L Total Protein (6.3-8.2) g/dL Albumin (3.5-5.0) g/dL - Imaging and Cardiology Chest x-ray: image reviewed Assessment and Plan Assessment: 1. Severe mitral regurgitation with dilated mitral annulus, status post mitral valve repair 2. Hypertension 3. History of hypothyroid, currently hyperthyroid with TSH 0.036 on 11/08/2021, 0.062 with FT4 1.49 on 11/12/2021, has been off Synthroid per her primary since 11/08 4. Remote history of pneumonia 5. Occasional EtOH use, no history of withdrawal 6. Never smoker, preoperative FEV1 111% of predicted 7. Family history of premature coronary artery disease-father with first AR at 42 years old, from AR at 55 years old 8. Vaccinated against Covid 9. Preoperative nasal swab positive for MSSA, treated with mupirocin 10. Postoperative acute blood loss anemia, expected 11. Paroxysmal atrial fibrillation, known common occurrence after open heart surgery, status post ligation of the left atrial appendage Plan: 1. Continue aspirin, statin, beta jamee therapy. Will increase beta jamee therapy as tolerated 2. Continue amiodarone for A. fib prophylaxis. No anticoagulation at this time 3. Wean O2 as tolerated. Encourage incentive spirometry is 10 times every hour while awake. Bronchodilators per pulmonology 4. Increase activity, ambulate as tolerated. PT/OT/cardiac rehab following 5. Will monitor daily labs and x-rays. Electrolyte replacement per protocol. Will give IV lasix 6. GI/DVT prophylaxis 7. Pain control with current medication regimen 8. Insulin management per primary care service. Patient is not diabetic, hemoglobin A1c 5.7% 9. Strict accurate intake and output. Daily weights 10. Synthroid management per primary care 11. Transfer orders placed yesterday for [address] [place] [address] cardiac stepdown unit, may transfer when bed available 12. Discharge planning in progress, likely will discharge later this afternoon versus tomorrow 13. More recommendations to follow as patient progresses
--- NOTE | 2021-11-15 08:21 | XR ---
EXAMINATION TYPE: XR chest 2V DATE OF EXAM: 11/15/2021 COMPARISON: Chest x-ray 11/14/2021 HISTORY: Status post cardiac surgery, chest tube removal TECHNIQUE: Frontal and lateral views of the chest are obtained. FINDINGS: There are overlying artifacts. Patient is post median sternotomy. Right-sided chest tube h as been removed. Right hemidiaphragm remains elevated. No sizable pneumothorax. Some patchy basilar d ensity present within the right hemithorax. Cardiac mediastinal silhouette is stable, left atrial nilsa endage clip change noted. Aorta is dense. Central venous sheath has been removed. IMPRESSION: No evident complication status post chest tube removal. There may be some minimal residu al atelectasis, effusion
[2021-11-15] MEDS ORDERED: FUROSEMIDE 10 MG/ML 4 ML VIAL IV STA (08:51)
[2021-11-15] MEDS: HEPARIN SODIUM,PORCINE/PF 5,000 UNIT/0.5 ML SYRINGE SQ SCH ×3 (08:53→23:52)
[2021-11-15] MEDS: METOPROLOL TARTRATE 25 MG TAB PO SCH ×2 (08:54→20:51)
[2021-11-15] MEDS: ASPIRIN 325 MG TAB PO SCH (08:54)
[2021-11-15] MEDS: CLOPIDOGREL 75 MG TAB PO SCH (08:54)
[2021-11-15] MEDS: ATORVASTATIN 40 MG TAB PO SCH (08:54)
[2021-11-15] MEDS: AMIODARONE 200 MG TAB PO SCH ×2 (08:54→20:50)
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
--- NOTE | 2021-11-15 11:04 | P.PN ---
Subjective Progress Note Date: 11/15/21 Principal diagnosis: Mitral valve annuloplasty On 11/15/2021 patient seen in follow-up in intensive care unit. Today is postoperative day #4, status post mitral valve annuloplasty for severe mitral regurgitation. Patient is doing very well, she is breathing comfortably, she is on 2 L of oxygen with a pulse ox of 97-99%, hemodynamically she stable, she is in sinus mechanism, there has been no recurrence of arrhythmias or atrial fibrillation overnight. She is not on any IV fluids, IV fluids have been hep- locked. She is achieving 1.5 L on the incentive spirometer, lung sounds are clear to auscultation. Today's chest x-ray showing minimal residual atelectasis with effusion, chest tubes have been removed, Zachary incision is clean dry and intact. Indwelling catheter has been removed, patient has been voiding. Patient has been tolerating ambulation, today's labs again reviewed showing improvement in white count which is down to 11.0, hemoglobin of 9.0, sodium of 133, potassium is 4.1, chloride is 99, CO2 is 27, B1 is 22 creatinine 0.87. Patient is tolerating oral intake, no nausea vomiting or diarrhea, no abdominal pain. Objective - Vital Signs Vital signs: Vital Signs Temp 98 F 11/15/21 10:00 Pulse 61 11/15/21 10:00 Resp 4 L 11/15/21 10:00 BP 127/56 11/15/21 10:00 Pulse Ox 97 11/15/21 10:00 FiO2 50 11/11/21 15:24 Intake & Output 11/14/21 11/15/21 11/15/21 18:59 06:59 18:59 Intake Total 656 50 0 Output Total 700 Balance -44 50 0 Intake: IV 6 pressure bags 6 Intake, IV Titration 0 Amount Calcium Gluconate in NaCl 0 2 gm In Saline 1 100ml. bag @ 100 mls/hr IVPB ONCE PRN Rx#:[id number] Oral 650 50 Output: Urine 700 Other: Voiding Method Indwelling Catheter # Voids 1 1 ABP, PAP, CO, CI - Last Documented Arterial Blood Pressure 141/75 Pulmonary Artery Pressure 28/11 Cardiac Output 4.2 Cardiac Index 2.1 - Exam GENERAL EXAM: Alert, very pleasant, 66-year-old white female, sitting up in the recliner, breathing comfortably on 2 L of oxygen satting 97%, comfortable in no apparent distress. HEAD: Normocephalic/atraumatic. EYES: Normal reaction of pupils, equal size. Conjunctiva pink, sclera white. NOSE: Clear with pink turbinates. THROAT: No erythema or exudates. NECK: No masses, no JVD, no thyroid enlargement, no adenopathy. CHEST: No chest wall deformity. Symmetrical expansion. Midsternal incision is clean dry and intact, chest tube sites are clean dry and intact, covered with dressings, chest tubes have been removed LUNGS: Equal air entry with no crackles, wheeze, rhonchi or dullness. CVS: Regular rate and rhythm, normal S1 and S2, no gallops, no murmurs, no rubs ABDOMEN: Soft, nontender. No hepatosplenomegaly, normal bowel sounds, no guarding or rigidity. EXTREMITIES: No clubbing, no edema, no cyanosis, 2+ pulses and upper and lower extremities. MUSCULOSKELETAL: Muscle strength and tone normal. SPINE: No scoliosis or deformity SKIN: No rashes CENTRAL NERVOUS SYSTEM: Alert and oriented -3. No focal deficits, tone is normal in all 4 extremities. PSYCHIATRIC: Alert and oriented -3. Appropriate affect. Intact judgment and insight. - Labs CBC & Chem 7: 11/15/21 06:25 11/15/21 06:25 Labs: Abnormal Lab Results - Last 24 Hours (Table) 11/14/21 11/14/21 11/14/21 Range/Units 11:45 16:36 20:57 WBC (3.8-10.6) k/uL RBC (3.80-5.40) m/uL Hgb (11.4-16.0) gm/dL Hct (34.0-46.0) % Sodium (137-145) mmol/L BUN (7-17) mg/dL Glucose (74-99) mg/dL POC Glucose (mg/dL) 142 H 114 H 111 H (75-99) mg/dL Calcium (8.4-10.2) mg/dL AST (14-36) U/L ALT (4-34) U/L Total Protein (6.3-8.2) g/dL Albumin (3.5-5.0) g/dL 11/15/21 11/15/21 11/15/21 Range/Units 06:25 06:25 06:33 WBC 11.0 H (3.8-10.6) k/uL RBC 3.11 L (3.80-5.40) m/uL Hgb 9.0 L (11.4-16.0) gm/dL Hct 28.2 L (34.0-46.0) % Sodium 133 L (137-145) mmol/L BUN 22 H (7-17) mg/dL Glucose 101 H (74-99) mg/dL POC Glucose (mg/dL) 106 H (75-99) mg/dL Calcium 8.0 L (8.4-10.2) mg/dL AST 67 H (14-36) U/L ALT 66 H (4-34) U/L Total Protein 5.6 L (6.3-8.2) g/dL Albumin 3.3 L (3.5-5.0) g/dL Assessment and Plan Plan: Assessment: #1. Severe mitral regurgitation, status post mitral valve annuloplasty, postoperative day #4. Patient remains hemodynamically stable, in sinus mechanism. #2. New onset atrial fibrillation expected outcome of surgery, has converted to normal sinus rhythm on a combination of oral amiodarone and metoprolol. No anticoagulants for now. #3. Status post thoracotomy, patient was successfully weaned and extubated. Chest x-ray showing triple removal of the right pleural and mediastinal chest tubes. No evidence of pneumothorax #4. Hypothyroidism #5. Hypertension #6. Colonic polyps #7. Chronic anxiety #8. Hyponatremia, improved Plan: Continue encouraging deep breathing and coughing Chest x-ray showing no evidence of pneumothorax and elevation of the right hemidiaphragm with minimal residual atelectasis and pleural effusion Hemodynamically she stable, no arrhythmias Continue antiarrhythmic and the rate control medications per CT surgery GI and DVT prophylaxis Continue encouraging ambulation and deep breathing and coughing We'll continue to follow I have personally seen and examined the patient, performed the documentation and the assessment and plan as written. Number of minutes spent on the visit: [15] Time with Patient: Less than 30
[2021-11-15 11:22] LABS: Glucose,Whole Blood 117 mg/dL (75-99)
[2021-11-15] MEDS: SERTRALINE 50 MG TAB PO SCH (13:02)
--- NOTE | 2021-11-15 16:23 | PN ---
PROGRESS NOTE Mrs Rahman is status post mitral valve repair with a ring. She is doing well. She had a brief episode of atrial fibrillation but in sinus rhythm, hemodynamically stable, doing well on no pressors. Possible discharge soon. Vitals are stable. JVD not evident. S1-S2 heard normally. Short systolic murmur at the apex. Lungs reveal decent air entry. Abdomen is soft. Lower extremities reveal diminished pulses. Central nervous system: Grossly no focal deficits. Good progress post surgery. Will continue to see the patient as needed. MMODL / IJN: [id number] /
[2021-11-15 16:37] LABS: Glucose,Whole Blood 100 mg/dL (75-99)
[2021-11-15] MEDS: ONDANSETRON 4 MG/2 ML VIAL IVP PRN (16:39)
[2021-11-15 20:20] LABS: Glucose,Whole Blood 140 mg/dL (75-99)
[2021-11-15] MEDS: SENNOSIDES-DOCUSATE SODIUM 1 EACH TAB PO SCH (20:50)
[2021-11-15] MEDS: ALPRAZolam 0.25 MG TAB PO PRN (20:50)
[2021-11-16] MEDS: ALPRAZolam 0.25 MG TAB PO PRN (02:32)
[2021-11-16 06:28] LABS: Glucose,Whole Blood 107 mg/dL (75-99)
[2021-11-16] MEDS: INSULIN ASPART (NovoLOG) 100 UNIT/ML VIAL SQ SCH (06:37)
[2021-11-16] MEDS: PANTOPRAZOLE 40 MG TABLET PO SCH (06:38)
--- NOTE | 2021-11-16 07:55 | XR ---
EXAMINATION TYPE: XR chest 2V DATE OF EXAM: 11/16/2021 COMPARISON: Chest x-ray 11/15/2021 HISTORY: Post cardiac surgery TECHNIQUE: Frontal and lateral views of the chest are obtained. FINDINGS: Patient is post median sternotomy and left atrial appendage clip placement. Overlying tamir facts are present. Right hemidiaphragm remains elevated. Aorta is dense. Heart size is stable. No nurys dent pneumothorax or sizable pleural effusion. Patchy density noted at the right lung base. IMPRESSION: Probable basilar atelectasis, difficult to exclude small effusion.
[2021-11-16] MEDS: IPRATROPIUM-ALBUTEROL 3 ML NEB INHALATION SCH (07:58)
[2021-11-16 08:04] LABS: HCT 26.9 % (34.0-46.0); HGB 8.7 gm/dL (11.4-16.0); MCH 29.2 pg (25.0-35.0); MCHC 32.6 g/dL (31.0-37.0); MCV 89.7 fL (80.0-100.0); Mean Platelet Volume 7.6; Platelet Count 362 k/uL (150-450); RBC 2.99 m/uL (3.80-5.40); WBC 11.2 k/uL (3.8-10.6)
[2021-11-16 08:12] LABS: African American GFR (CKD) >90 (>60 ml/min/1.73 sqM); Anion Gap 10 mmol/L; Blood Urea Nitrogen 18 mg/dL (7-17); Calcium 8.2 mg/dL (8.4-10.2); Carbon Dioxide 25 mmol/L (22-30); Chloride 99 mmol/L (98-107); Glucose 103 mg/dL (74-99); Magnesium 2.1 mg/dL (1.6-2.3); Non-African American GFR(CKD) 80 (>60 ml/min/1.73 sqM); Potassium 4.2 mmol/L (3.5-5.1); Sodium 134 mmol/L (137-145)
[2021-11-16 08:40] VITALS: BP 151/64; RESP 20; TEMP 98
[2021-11-16] MEDS: ASPIRIN 325 MG TAB PO SCH (08:43)
[2021-11-16] MEDS: SERTRALINE 50 MG TAB PO SCH ×2 (08:43→08:44)
[2021-11-16] MEDS: HEPARIN SODIUM,PORCINE/PF 5,000 UNIT/0.5 ML SYRINGE SQ SCH (08:43)
[2021-11-16] MEDS: AMIODARONE 200 MG TAB PO SCH (08:45)
[2021-11-16] MEDS: CLOPIDOGREL 75 MG TAB PO SCH (08:45)
[2021-11-16] MEDS: ATORVASTATIN 40 MG TAB PO SCH (08:45)
[2021-11-16] MEDS: METOPROLOL TARTRATE 25 MG TAB PO SCH (08:45)
--- NOTE | 2021-11-16 08:46 | P.PN ---
Subjective Progress Note Date: 11/16/21 Principal diagnosis: Severe mitral regurgitation with dilated mitral annulus. Previous medical history of hypertension, hypothyroid, remote history of pneumonia, occasional EtOH use, never smoker, family history of premature coronary artery disease- father with first CT at 42 years old, from CT at 57 years old. Vaccinated against Covid. Preoperative nasal swab positive for MSSA POD #5 mitral valve repair with a #28 mm CarboMedics AnnuloFlex band, clip ligation of the left atrial appendage with a 35 mm AtriClip and intraoperative transesophageal echocardiogram Postoperative acute blood loss anemia, expected given hemodilution and cardiopulmonary bypass pump Paroxysmal atrial fibrillation, known common occurrence after open heart surgery The patient was seen and examined sitting up in a recliner this morning on the cardiac stepdown unit in no acute distress eating breakfast. She remains in sinus rhythm with heart rate in the low 60s, no further atrial fibrillation noted, denies shortness of breath. Hemodynamically stable. This morning she complains of feeling her heart beating fast and feeling a little jittery. She has ambulate in the hallway multiple times and received first postoperative shower yesterday. Currently on room air with oxygen saturation in the mid 90s. Hoping to go home today. Objective - Vital Signs Vital signs: Vital Signs Temp 98.3 F 11/16/21 04:00 Pulse 75 11/16/21 08:09 Resp 18 11/16/21 04:00 BP 144/71 11/16/21 04:00 Pulse Ox 95 11/16/21 07:58 FiO2 50 11/11/21 15:24 Intake & Output 11/15/21 11/16/21 11/16/21 18:59 06:59 18:59 Intake Total 240 240 Output Total 1550 1300 Balance -1310 -1060 Weight 94.7 kg 93.5 kg Intake: Intake, IV Titration 0 Amount Calcium Gluconate in NaCl 0 2 gm In Saline 1 100ml. bag @ 100 mls/hr IVPB ONCE PRN Rx#:[id number] Oral 240 240 Output: Urine 1550 1300 Other: Voiding Method Toilet # Voids 1 ABP, PAP, CO, CI - Last Documented Arterial Blood Pressure 141/75 Pulmonary Artery Pressure 28/11 Cardiac Output 4.2 Cardiac Index 2.1 - Exam CONSTITUTIONAL: Appears comfortable, cooperative, no acute distress RESPIRATORY: Lungs sounds diminished bilaterally. Respirations even, nonlabored. Currently on room air with oxygen saturation 96%. Able to achieve 1250 mL on incentive spirometry. Strong nonproductive cough. CARDIOVASCULAR: S1, S2 present. Regular rate and rhythm, sinus rhythm on telemetry. Sternum stable. Palpable peripheral pulses bilaterally. Trace bilateral lower extremity edema present. No calf pain or tenderness noted. Heart hugger in place with patient demonstrating appropriate use. Antiembolism stockings, SCDs present. GASTROINTESTINAL: Abdomen soft, nontender, nondistended. Active bowel sounds present 4 quadrants. Tolerating diet. Positive bowel movement GENITOURINARY: Continues to void, urine output 2850 mL in the last 24 hours INTEGUMENTARY: Skin is warm and dry with evidence of good perfusion. Anterior chest incision well approximated NEUROLOGIC: Cranial nerves II through XII intact MUSKULOSKELETAL: Able to move all extremities, strength equal bilaterally, ambulatory without difficulty PSYCHIATRIC: Alert and oriented to person place and time, appropriate affect, intact judgment and insight - Allied health notes Allied health notes reviewed: nursing - Labs CBC & Chem 7: 11/16/21 07:10 11/16/21 07:10 Labs: Abnormal Lab Results - Last 24 Hours (Table) 11/15/21 11/15/21 11/15/21 Range/Units 11:21 16:35 20:18 WBC (3.8-10.6) k/uL RBC (3.80-5.40) m/uL Hgb (11.4-16.0) gm/dL Hct (34.0-46.0) % Sodium (137-145) mmol/L BUN (7-17) mg/dL Glucose (74-99) mg/dL POC Glucose (mg/dL) 117 H 100 H 140 H (75-99) mg/dL Calcium (8.4-10.2) mg/dL 11/16/21 11/16/21 11/16/21 Range/Units 06:26 07:10 07:10 WBC 11.2 H (3.8-10.6) k/uL RBC 2.99 L (3.80-5.40) m/uL Hgb 8.7 L (11.4-16.0) gm/dL Hct 26.9 L (34.0-46.0) % Sodium 134 L (137-145) mmol/L BUN 18 H (7-17) mg/dL Glucose 103 H (74-99) mg/dL POC Glucose (mg/dL) 107 H (75-99) mg/dL Calcium 8.2 L (8.4-10.2) mg/dL - Imaging and Cardiology Chest x-ray: report reviewed, image reviewed Assessment and Plan Assessment: 1. Severe mitral regurgitation with dilated mitral annulus, status post mitral valve repair 2. Hypertension 3. History of hypothyroid, currently hyperthyroid with TSH 0.036 on 11/08/2021, 0.062 with FT4 1.49 on 11/12/2021, has been off Synthroid per her primary since 11/08 4. Remote history of pneumonia 5. Occasional EtOH use, no history of withdrawal 6. Never smoker, preoperative FEV1 111% of predicted 7. Family history of premature coronary artery disease-father with first CT at 42 years old, from CT at 57 years old 8. Vaccinated against Covid 9. Preoperative nasal swab positive for MSSA, treated with mupirocin 10. Postoperative acute blood loss anemia, expected 11. Paroxysmal atrial fibrillation, known common occurrence after open heart surgery, status post ligation of the left atrial appendage Plan: 1. Continue aspirin, statin, beta jamee therapy. Will initiate low-dose ARB for afterload reduction 2. Continue amiodarone for A. fib prophylaxis. No anticoagulation 3. Encourage incentive spirometry is 10 times every hour while awake. Bronchodilators per pulmonology 4. Increase activity, ambulate as tolerated. PT/OT/cardiac rehab following 5. Will monitor daily labs and x-rays. Electrolyte replacement per protocol. 6. GI/DVT prophylaxis 7. Pain control with current medication regimen 8. Insulin management per primary care service. Patient is not diabetic, hemoglobin A1c 5.7% 9. Strict accurate intake and output. Daily weights 10. Synthroid management per primary care 11. Discharge planning in progress, likely will discharge later this afternoon 12. More recommendations to follow as patient progresses
[2021-11-16] MEDS ORDERED: LOSARTAN 25 MG TAB PO SCH (09:00)
[2021-11-16] MEDS ORDERED: FUROSEMIDE 10 MG/ML 4 ML VIAL IV STA (09:23)
[2021-11-16] MEDS ORDERED: LEVOTHYROXINE 75 MCG TAB PO SCH (09:23)
[2021-11-16] MEDS ORDERED: SENNOSIDES-DOCUSATE SODIUM 1 EACH TAB PO PRN (09:24)
--- NOTE | 2021-11-16 10:10 | P.DS ---
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 Severe mitral regurgitation with dilated mitral annulus 2. Hypertension 3. History of hypothyroid, currently hyperthyroid, TSH 0.036 on 11/08/2021, 0.062 with free T4 1.49 on 11/12/2021, off Synthroid since 11/08/21, TSH 2.45 on 11/16/21 4. Remote history of pneumonia 5. Occasional EtOH use, no history of withdrawal 6. Never smoker, preoperative FEV1 111% of predicted 7. Family history of premature coronary artery disease 8. Vaccinated against Covid 9. Preoperative nasal swab positive for MSSA, treated with mupirocin 10. Postoperative acute blood loss anemia, expected 11. Paroxysmal atrial fibrillation, common occurrence of surgery PRINCIPAL PROCEDURE: 1. Mitral valve repair with a #28 mm CarboMedics AnnuloFlex band 2. Clip ligation of the left atrial appendage with a 35 mm AtriClip 3. Intraoperative transesophageal echocardiogram HISTORY OF PRESENT ILLNESS: This is a 66-year-old female patient who follows on an outpatient basis with Dr. Vargas for primary care doctor Dr. Espinoza for cardiology. She was experiencing increasing shortness of breath along with anxiety. She had a transthoracic as well as a transesophageal echocardiogram demonstrating severe mitral regurgitation with preserved left ventricular dysfunction. The patient was referred to Dr. Kurtz from cardiothoracic surgery. She was recommended to undergo elective mitral valve repair. The usual perioperative course was discussed in detail with the patient, all risks and benefits were explained, all questions were answered, and consent was obtained to proceed with surgery. The patient was discharged to home on maximal medical therapy to return as an outpatient for surgery after obtaining dental clearance. HOSPITAL COURSE: The patient was brought to the hospital on 11/11/21, taken to the preoperative area, prepared in the usual fashion, and subsequently taken to the operating room where Dr. Kurtz performed mitral valve repair. Upon completion of surgery the patient was transferred to the cardiovascular intensive care unit where she was recovered and monitored hemodynamically. She was extubated, all lines, tubes, and drips were discontinued when appropriate, and transfer orders were placed for 3 S. cardiac stepdown unit where she was transferred for further monitoring. She did experience paroxysmal atrial fibrillation which was successfully treated with amiodarone. Her oxygen was titrated down, she continued to work with physical and occupational therapy, she was tolerating oral diet, her pain was controlled, and she was ready to be discharged to home with [facility] on postoperative day #5. She received written and verbal instruction regarding her medications, activity restrictions, signs and symptoms requiring physician notification, and follow-up appointments. She was restarted on Synthroid but at half dose, to be followed up in her primary care office. Patient Condition at Discharge: Stable Plan - Discharge Summary Discharge Rx Participant: No New Discharge Prescriptions: New Aspirin 325 mg PO DAILY #30 tab Metoprolol Tartrate [Lopressor] 25 mg PO BID #60 tab Pantoprazole [Protonix] 40 mg PO AC-BRKFST #30 tab Levothyroxine Sodium [Synthroid] 75 mcg PO DAILY@0630 #30 tab Furosemide [Lasix] 40 mg PO DAILY #7 tablet Amiodarone [Cordarone] 200 mg PO BID #21 tab Losartan [Cozaar] 12.5 mg PO DAILY #30 tab Atorvastatin [Lipitor] 40 mg PO DAILY #30 tab Clopidogrel [Plavix] 75 mg PO DAILY #30 tab Sennosides-Docusate Sodium [Senokot-S] 2 each PO HS PRN tab PRN Reason: Constipation traMADol HCL [Ultram] 50 mg PO Q6HR PRN 3 Days #12 tab PRN Reason: Breakthrough Pain Continue Ibuprofen [Advil] 200 - 400 mg PO Q6HR PRN PRN Reason: Pain ALPRAZolam [Xanax] 0.25 mg PO HS PRN PRN Reason: Anxiety Acetaminophen [Tylenol Arthritis] 650 mg PO Q6H PRN PRN Reason: Pain Discontinued Levothyroxine Sodium [Synthroid] 150 mcg PO DAILY Losartan [Cozaar] 50 mg PO DAILY #30 tab hydroCHLOROthiazide [Hydrodiuril] 12.5 mg PO DAILY #30 cap Omeprazole [PriLOSEC] 20 mg PO DAILY PRN PRN Reason: Heartburn Mupirocin [Mupirocin 2%] 1 applic NASAL BID #1 tub Discharge Medication List Ibuprofen [Advil] 200 - 400 mg PO Q6HR PRN 09/25/18 [History] ALPRAZolam [Xanax] 0.25 mg PO HS PRN 01/06/20 [History] Acetaminophen [Tylenol Arthritis] 650 mg PO Q6H PRN 11/10/21 [History] Amiodarone [Cordarone] 200 mg PO BID #21 tab 11/16/21 [Rx] Aspirin 325 mg PO DAILY #30 tab 11/16/21 [Rx] Atorvastatin [Lipitor] 40 mg PO DAILY #30 tab 11/16/21 [Rx] Clopidogrel [Plavix] 75 mg PO DAILY #30 tab 11/16/21 [Rx] Furosemide [Lasix] 40 mg PO DAILY #7 tablet 11/16/21 [Rx] Levothyroxine Sodium [Synthroid] 75 mcg PO DAILY@0630 #30 tab 11/16/21 [Rx] Losartan [Cozaar] 12.5 mg PO DAILY #30 tab 11/16/21 [Rx] Metoprolol Tartrate [Lopressor] 25 mg PO BID #60 tab 11/16/21 [Rx] Pantoprazole [Protonix] 40 mg PO AC-BRKFST #30 tab 11/16/21 [Rx] Sennosides-Docusate Sodium [Senokot-S] 2 each PO HS PRN tab 11/16/21 [Rx] traMADol HCL [Ultram] 50 mg PO Q6HR PRN 3 Days #12 tab 11/16/21 [Rx] Follow up Appointment(s)/Referral(s): [facility] [NON-STAFF] - 4 Weeks (You will receive a phone call in approximately 4-6 weeks for evaluation for cardiac rehab) Ashley Vargas MD [Primary Care Provider] - 11/29/21 1:30 pm Génesis Lowery NPC [Nurse Practitioner] - 11/30/21 2:15 pm [facility], [NON-STAFF] - 1-2 Days ([facility] will call you to schedule your home care visits, they should be out first day home and 2-3 times per week afterwards. Please call them if you have questions regarding home care. ) Jossue Kurtz MD [STAFF PHYSICIAN] - 12/05/21 2:00 pm Precious Espinoza MD [STAFF PHYSICIAN] - 11/25/21 3:15 pm Carley Chan NPC [Nurse Practitioner] - 11/25/21 10:30 am (You will be seen in the surgeon's office behind the hospital in [facility], [address] Office phone number is ) Ambulatory/Diagnostic Orders: Complete Blood Count w/diff [LAB.AMB] Time Frame: 3 Days, Location: None Selected Comprehensive Metabolic Panel [LAB.AMB] Time Frame: 3 Days, Location: None Selected TSH, 3rd Generation [LAB.AMB] Time Frame: 3 Days, Location: None Selected Activity/Diet/Wound Care/Special Instructions: DISCHARGE INSTRUCTIONS: 1. No driving for 4 weeks, or until physician gives their ok. 2. The patient should sleep in their own bed, no medical bed needed. 3. Stairs are not an issue. If the bedroom is upstairs, it is advised that the patient go up at night and down in the morning for the first week. Go slowly, using handrail and take 1 step at a time. 4. SOCO hose are to be worn for 30 days or until physician discontinues. 5. Heart hugger is to be worn 100% of the time until physician discontinues.(except when showering) 6. No lifting, pushing, or pulling more than 10 pounds for 12 weeks. The physician will advise of any restriction changes. 7. The patient is expected to continue the prescribed walking program. 8. Continue pain control per as needed orders. 9. Continue with incentive spirometry and splinting/heart hugger until otherwise directed by the physician. 10. Must shower daily using liquid antibacterial soap and a separate white washcloth for each individual incision. 11. Routine sternal incision care. No powders, lotions, ointments on incisions. No dressings are necessary on incisions unless they are draining. Dermabond tape is to remain on sternal incision until surgeon follow-up. 12. Please call surgeon/BLANKET CUTTER HAND for temp greater than 101 F or purulent drainage from incisions. 13. You should weigh yourself daily, record and bring log with you to follow up appointments. 14. All prescriptions given by surgeon for 30 days. Refills need to be filled through natural gas basis trader/primary care physician. 15. A Red armband has been placed on the patient. It should be worn for 30 days post surgery and will be removed by the cardiac surgeons. If an ER visit is necessary, please make sure the number on the Red armband is called. 16. You have been referred to and are expected to begin Cardiac Rehab in approximately 4-6 weeks. HOME HEALTH SERVICES TO PROVIDE: RN SKILLED HOME CARE SERVICES FOR POST-OP SURGICAL PATIENTS WITH THE FOLLOWING: Coronary Artery Bypass Surgery (CABG), Mitral Valve Replacement/Rep air ( MVR), Aortic Valve Replacement/Repair (AVR) RN TO CONTINUE EDUCATION FROM ``ROAD TO A HEALTH HEART PATIENT EDUCATION MANUAL (GIVEN TO PATIENT IN THE HOSPITAL) MEDICATION RECONCILIATION WITH EDUCATION NEEDED ON FIRST HOME VISIT EMPHASIZE IMPORTANCE OF WEARING BREAST SUPPORT/HEART HUGGER ENCOURAGE USE OF INCENTIVE SPIROMETER 10 X EVERY HOUR WHILE AWAKE ENCOURAGE UTILIZATION OF LOWER EXTREMITY COMPRESSION STOCKINGS/SOCO HOSE and ELEVATE LEGS ABOVE LEVEL OF HEART WHILE AT REST. ENCOURAGE AMBULATION 3-5x/day INCREASING TOLERATES, WHILE AVOIDING EXTREMES IN TEMPERATURE FREQUENCY: RN TO OPEN THE PATIENT WITHIN 24 HOURS OF DISCHARGE FROM THE HOSPITAL WITH [place]HE[place] [facility] [place] 2-3 X A WEEK FOR 4 WEEKS ESTABLISHED BY PATIENT NEEDS. LABORATORY: CBC, CMP TO BE DRAWN ON THE THIRD DAY HOME, (RAN STAT) FAX RESULTS TO [phone]. TELEHEALTH PARAMETERS: WEIGHT: NOTIFY MD OF WEIGHT GAIN OF 2 LBS IN 24 HOURS OR 5 LBS IN ONE WEEK HR: NOTIFY MD OF HR <55 BPM OR HR>100 BPM BP: NOTIFY MD IF BP <90/55 OR BP>140/100 O2 SAT: NOTIFY MD IF PO2<93% ON ROOM AIR SEND TELEHEALTH REPORT TO INDUSTRIAL SPECIALIST AND CARDIOVASCULAR SURGEON THE FIRST WEEK OF CARE AND THEN BI-WEEKLY. PLEASE ADDITIONALLY COMMUNICATE ANY ABNORMALS AND NEW FINDINGS TO THE SURGEONS OFFICE. Discharge Disposition: HOME WITH HOME HEALTH SERVICES
[2021-11-16 11:57] VITALS: PULSE 62
--- NOTE | 2021-11-16 12:29 | PN ---
PROGRESS NOTE PULMONARY/CRITICAL CARE PROGRESS NOTE: DATE OF SERVICE: 11/16/2021 This is a 66-year-old female who is postoperative day number 5, status post mitral valve repair secondary to severe mitral regurgitation. The patient had new- onset atrial fibrillation as well. The patient is doing relatively well and likely will be discharged sometime today. The patient will continue on incentive spirometer. The patient's chest x-ray is reviewed. She does have some basilar atelectasis. Labs are also reviewed. Currently white count is 11.2, hemoglobin 8.7, hematocrit 26.9, and platelet count 362,000. Sodium 134, potassium 4.2, chloride 99. CO2 is 25. BUN 18 and creatinine 0.79. Calcium is 8.2. Again chest x-ray is reviewed. PHYSICAL EXAMINATION: VITAL SIGNS: Vital signs include temperature 98 degrees, heart rate 75, respiratory rate 20, blood pressure 151/64 with a mean of 93, and room-air saturation 98%. GENERAL APPEARANCE: She appears in no acute distress. She is sitting in the chair next to the bed. She is a bit anxious. HEENT: Examination is grossly unremarkable. NECK: Supple. Full range of motion. No adenopathy. Neck veins are flat. CARDIOVASCULAR: Examination reveals regular rhythm and rate. Heart rate in the high 60s. S1, S2 normal. LUNGS: Relatively clear. Breath sounds equal. Minimal scattered rhonchi. No wheezes. ABDOMEN: Soft. Bowel sounds are heard. EXTREMITIES: Intact. No cyanosis, clubbing or edema. SKIN: Without rash. NEUROLOGIC: Examination is brief but nonfocal. ASSESSMENT: 1. Severe mitral regurgitation, status post mitral valve annuloplasty, postoperative day number 5. 2. New-onset atrial fibrillation. 3. Status post thoracotomy, recovered. 4. Hypothyroidism. 5. Hypertension. 6. Colonic polyps. 7. Chronic anxiety. PLAN: The patient is doing well. The patient will likely be discharged home in the next 24 hours. We recommend deep breathing, coughing and clearing secretions. We also recommend ongoing use of the incentive spirometer. The patient will follow up in the office with one of us. No additional recommendations are made at this time. MMODL / IJN: [id number] / MTDD
[2021-11-16] MEDS ORDERED: AMIODARONE 200 MG TAB PO SCH (21:00)
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
== END 2021-11-16 11:10 | disposition home health service (06) | DRG 220 ==
LOC: 2ORMAIN 05:34 → 2SICU 12:10 → 3SCARD 11-15 14:29
PROVIDERS: ADMIT Thoracic Surgery (Cardiothoracic Vascular Surgery); ATTEND Thoracic Surgery (Cardiothoracic Vascular Surgery)
PROC: 02L70CK Occlusion of Left Atrial Appendage with Extraluminal Device, Open Approach (ICD-10-PCS; principal; 2021-11-11 08:00)
PROC: B24BZZ4 Ultrasonography of Heart with Aorta, Transesophageal (ICD-10-PCS; principal; 2021-11-11 08:00)
PROC: 02UG0JZ Supplement Mitral Valve with Synthetic Substitute, Open Approach (ICD-10-PCS; principal; 2021-11-11 08:00)
PROC: 5A1221Z Performance of Cardiac Output, Continuous (ICD-10-PCS; principal; 2021-11-11 08:00)
DX: I34.0 Nonrheumatic mitral (valve) insufficiency (principal); D62 Acute posthemorrhagic anemia; E87.1 Hypo-osmolality and hyponatremia; J98.11 Atelectasis; I48.0 Paroxysmal atrial fibrillation; D72.829 Elevated white blood cell count, unspecified; E05.90 Thyrotoxicosis, unspecified without thyrotoxic crisis or storm; E03.9 Hypothyroidism, unspecified; F41.0 Panic disorder [episodic paroxysmal anxiety]; I10 Essential (primary) hypertension; E78.5 Hyperlipidemia, unspecified; K21.9 Gastro-esophageal reflux disease without esophagitis; M19.90 Unspecified osteoarthritis, unspecified site; Z79.890 Hormone replacement therapy; Z79.899 Other long term (current) drug therapy; Z22.321 Carrier or suspected carrier of Methicillin susceptible Staphylococcus aureus; Z87.01 Personal history of pneumonia (recurrent); Z86.010 Personal history of colon polyps; Z90.49 Acquired absence of other specified parts of digestive tract; Z87.19 Personal history of other diseases of the digestive system; Z98.51 Tubal ligation status; Z90.79 Acquired absence of other genital organ(s); Z90.722 Acquired absence of ovaries, bilateral; Z98.890 Other specified postprocedural states; Z71.3 Dietary counseling and surveillance; Z88.5 Allergy status to narcotic agent; Z88.8 Allergy status to other drugs, medicaments and biological substances; Z82.49 Family history of ischemic heart disease and other diseases of the circulatory system; Z80.0 Family history of malignant neoplasm of digestive organs; Z80.3 Family history of malignant neoplasm of breast; Z80.8 Family history of malignant neoplasm of other organs or systems
CPT/HCPCS: 71045; 71046; 80048; 80053; 82330; 82805; 83735; 84100; 84439; 84443; 85025; 85027; 85520; 85610; 85730; 86850; 86891; 86900; 86901; 86920; 94640; 94760

== ENCOUNTER 2022-04-24 01:20 | Emergency (ER) | payer MEDICAID ==
[2022-04-24 01:29] VITALS: TEMP 97.9
[2022-04-24] MEDS ORDERED: SODIUM CHLORIDE 0.9% 1,000 ML IV STA (01:55)
[2022-04-24] MEDS ORDERED: ONDANSETRON 4 MG/2 ML VIAL IVP STA (01:55)
[2022-04-24 02:23] LABS: Basophils % (A) 1 %; Eosinophils # (A) 0.2 k/uL (0-0.7); Eosinophils % (A) 3 %; HCT 37.5 % (34.0-46.0); HGB 12.6 gm/dL (11.4-16.0); Lymphocytes # (A) 1.3 k/uL (1.0-4.8); Lymphocytes % (A) 24 %; MCH 28.2 pg (25.0-35.0); MCHC 33.7 g/dL (31.0-37.0); MCV 83.7 fL (80.0-100.0); Mean Platelet Volume 7.9; Monocytes # (A) 0.3 k/uL (0-1.0); Monocytes % (A) 5 %; Neutrophils # (A) 3.5 k/uL (1.3-7.7); Neutrophils % (A) 65 %; Platelet Count 326 k/uL (150-450); RBC 4.48 m/uL (3.80-5.40); RDW 14.7 % (11.5-15.5); WBC 5.5 k/uL (3.8-10.6)
--- NOTE | 2022-04-24 02:27 | XR ---
EXAMINATION TYPE: XR chest 2V DATE OF EXAM: 04/24/2022 COMPARISON: 11/30/2021 HISTORY: Chest pain TECHNIQUE: 2 views FINDINGS: There is no heart failure nor confluent pneumonic infiltrate. Costophrenic angles are clear . There are sternal wires. There are chest leads. IMPRESSION: No active cardiopulmonary disease. No adverse change.
[2022-04-24 02:35] LABS: INR 0.9 (<1.2); Partial Thromboplastin Time 22.5 sec (22.0-30.0); Prothrombin Time 10.1 sec (9.0-12.0)
--- NOTE | 2022-04-24 02:40 | ED ---
Chest Pain HPI - General Chief Complaint: Upper Respiratory Infection Stated Complaint: Chest Heaviness, Shortness of breath, COVID+ Time Seen by Provider: 04/24/22 01:30 Source: patient, RN notes reviewed Mode of arrival: ambulatory Limitations: no limitations - History of Present Illness Initial Comments: This is a 66-year-old female who presents to the emergency department for anxiety and palpitations. 3 days ago she tested positive for COVID-19 at home. Over the last 1-2 days, she has had feelings of anxiety and palpitations. States that she is unable to sleep at night due to these palpitations, and she had surgery in October of this year for mitral valve repair due to severe mitral regurgitation. This history does make her feel much more nervous. Also reports nausea and diarrhea from COVID. Denies any fevers, chills, sore throat, abdominal pain, vomiting, back pain, or headaches. MD Complaint: chest pain, other (palpitations) Onset/Timin -: days(s) - Related Data Home Medications Medication Instructions Recorded Confirmed Ibuprofen [Advil] 200 - 400 mg PO Q6HR PRN 09/25/18 11/08/21 ALPRAZolam [Xanax] 0.25 mg PO HS PRN 01/06/20 11/08/21 Acetaminophen [Tylenol Arthritis] 650 mg PO Q6H PRN 11/10/21 11/10/21 Previous Rx's Medication Instructions Recorded Amiodarone [Cordarone] 200 mg PO BID #21 tab 11/16/21 Aspirin 325 mg PO DAILY #30 tab 11/16/21 Atorvastatin [Lipitor] 40 mg PO DAILY #30 tab 11/16/21 Clopidogrel [Plavix] 75 mg PO DAILY #30 tab 11/16/21 Furosemide [Lasix] 40 mg PO DAILY #7 tablet 11/16/21 Levothyroxine Sodium [Synthroid] 75 mcg PO DAILY@0630 #30 tab 11/16/21 Losartan [Cozaar] 12.5 mg PO DAILY #30 tab 11/16/21 Metoprolol Tartrate [Lopressor] 25 mg PO BID #60 tab 11/16/21 Pantoprazole [Protonix] 40 mg PO AC-BRKFST #30 tab 11/16/21 Sennosides-Docusate Sodium 2 each PO HS PRN tab 11/16/21 [Senokot-S] traMADol HCL [Ultram] 50 mg PO Q6HR PRN 3 Days #12 tab 11/16/21 Furosemide [Lasix] 20 mg PO DAILY #5 tab 11/21/21 Ondansetron Odt [Zofran Odt] 4 mg PO Q8HR PRN #15 tab 04/24/22 Allergies Allergy/AdvReac Type Severity Reaction Status Date / Time cortisone Allergy Rash/Hives Verified 04/24/22 01:29 hyaluronic acid Allergy Itching Verified 04/24/22 01:29 [From Hyalgan] @injection site hydrocodone AdvReac SHORTNESS Verified 04/24/22 01:29 OF BREATHE propoxyphene napsylate AdvReac SHORTNESS Verified 04/24/22 01:29 [From Darvocet-N] OF BREATHE Review of Systems ROS Statement: Those systems with pertinent positive or pertinent negative responses have been documented in the HPI. ROS Other: All systems not noted in ROS Statement are negative. EKG Findings - EKG Comments: EKG Findings:: Sinus rhythm. Ventricular rate 60 bpm, LA interval 169 ms, QRS duration 145 ms, QTC 469 ms. Past Medical History Past Medical History: GERD/Reflux, Mitral Valve Prolapse (MVP), Pneumonia, Thyroid Disorder Additional Past Medical History / Comment(s): Mitral valve prolapse, hx. colon polyps, bowel habits, intermittent RLQ pain, SOB late afternoon & evening. See Dr. Espinoza's H&P. History of Any Multi-Drug Resistant Organisms: None Reported Past Surgical History: Appendectomy, Tubal Ligation Additional Past Surgical History / Comment(s): Mitral valve repair Past Anesthesia/Blood Transfusion Reactions: No Reported Reaction, Family History of Problems w/ Anesthesia Additional Past Anesthesia/Blood Transfusion Reaction / Comment(s): 16 y.o. son had some chest pain that was attributed to anesthesia per pt. Past Psychological History: No Psychological Hx Reported, Anxiety Smoking Status: Never smoker Past Alcohol Use History: Occasional Past Drug Use History: None Reported - Past Family History Mother Sister(s) Family Medical History: Cancer Additional Family Medical History / Comment(s): mom colon, sister brain & breast cancer General Exam Limitations: no limitations General appearance: alert, in no apparent distress Head exam: Present: atraumatic, normocephalic, normal inspection Respiratory exam: Present: normal lung sounds bilaterally. Absent: respiratory distress, wheezes, rales, rhonchi, stridor Cardiovascular Exam: Present: regular rate, normal rhythm, normal heart sounds. Absent: systolic murmur, diastolic murmur, rubs, gallop, clicks Neurological exam: Present: alert, oriented X3, CN II-XII intact Psychiatric exam: Present: normal affect, normal mood Skin exam: Present: warm, dry, intact, normal color. Absent: rash Course Vital Signs 04/24/22 04/24/22 01:26 03:06 Temperature 97.9 F Pulse Rate 60 59 L Respiratory 18 19 Rate Blood Pressure 198/77 140/81 O2 Sat by Pulse 98 96 Oximetry Chest Pain MDM - MDM This is a 66-year-old female who presents to the emergency department for palpitations. Chest x-ray obtained and my interpretation does not identify any infiltrates or consolidations. She was given IV fluids and Zofran for her symptoms. Lab work was nonactionable including a negative troponin and negative d-dimer. Findings discussed with the patient. States that she does feel much better in terms of anxiety and palpitations knowing that her lab work, including cardiac markers, did not reveal any irregularities. Believes that her symptoms are largely from anxiety related to her heart and the prior surgery. Prescription and starter pack for Zofran provided. Also suggested [id number] Imodium for the diarrhea if it becomes too bothersome. Advised she remain well-hydrated and continue to get plenty of rest. Reminded her to quarantine for 5 days, starting from the day she tested positive, and to practice extra precautions for an additional 5 days, including always wearing a mask around others and avoiding travel. Instructed her to follow-up with her primary care provider and price checker after her quarantine period is finished. Return precautions reviewed in depth, the patient is instructed to return to the emergency department with any new, worsening, or concerning symptoms. Patient verbalized understanding. This case was discussed in detail with the attending ED physician. Presentation, findings, and treatment plan discussed in detail as well. Disposition Clinical Impression: COVID-19 Disposition: HOME SELF-CARE Instructions (If sedation given, give patient instructions): COVID-19 (Coronavirus Disease 2019) (ED), How to Recover from COVID-19 at Home (ED) Additional Instructions: Return to the emergency department with any new, worsening, or concerning symptoms. Take the Zofran up to every 8 hours as needed for nausea and vomiting. Make sure that you remain well-hydrated and continue to get plenty of rest. Make sure that you quarantine for 5 days starting from the day you tested positive, and practice extra precautions for an additional 5 days afterwards, including always wearing a mask around others and avoiding travel. Follow up with your primary care provider and price checker after your quarantine period ends. Prescriptions: Ondansetron Odt [Zofran Odt] 4 mg PO Q8HR PRN #15 tab PRN Reason: Nausea And Vomiting Is patient prescribed a controlled substance at d/c from ED?: No Referrals: Ashley Vargas MD [Primary Care Provider] - 1-2 days
[2022-04-24 02:43] LABS: ALT 22 U/L (4-34); AST 23 U/L (14-36); African American GFR (CKD) >90 (>60 ml/min/1.73 sqM); Albumin 4.2 g/dL (3.5-5.0); Alkaline Phosphatase 89 U/L (38-126); Anion Gap 8 mmol/L; Blood Urea Nitrogen 14 mg/dL (7-17); Calcium 8.7 mg/dL (8.4-10.2); Carbon Dioxide 22 mmol/L (22-30); Chloride 106 mmol/L (98-107); Glucose 106 mg/dL (74-99); Magnesium 1.9 mg/dL (1.6-2.3); Non-African American GFR(CKD) 81 (>60 ml/min/1.73 sqM); Potassium 4.5 mmol/L (3.5-5.1); Sodium 136 mmol/L (137-145); Total Bilirubin 0.5 mg/dL (0.2-1.3); Total Protein 6.8 g/dL (6.3-8.2)
[2022-04-24 03:07] VITALS: BP 140/81; PULSE 59; RESP 19
[2022-04-24] MEDS ORDERED: ONDANSETRON 4 MG ODT STARTER PACK 2 TAB BTL PO STA (03:33)
== END 2022-04-24 03:47 | disposition home or self-care (01) ==
LOC: EC 01:20
DX: U07.1 COVID-19 (principal); K21.9 Gastro-esophageal reflux disease without esophagitis; E03.9 Hypothyroidism, unspecified; Z79.890 Hormone replacement therapy; Z79.899 Other long term (current) drug therapy; Z79.83 Long term (current) use of bisphosphonates; Z88.5 Allergy status to narcotic agent; Z88.8 Allergy status to other drugs, medicaments and biological substances
CPT/HCPCS: 36415; 85379; 80053; 83735; 84484; 85025; 85610; 85730; 71046; 99285; 96374; 96361; J2405; S0119; 93005

== ENCOUNTER → 2022-08-31 | Outpatient (CLI) | payer MEDICAID ==
--- NOTE | 2022-08-31 17:40 | CT ---
EXAMINATION TYPE: CT angio chest CT DLP: 476.2 mGycm, Automated exposure control for dose reduction was used. DATE OF EXAM: 08/31/2022 5:14 PM COMPARISON: Chest radiograph 04/24/2022. CLINICAL INDICATION:Female, 67 years old with history of R06.02 Short of breath; Blood work showed el evated d-dimer, shortness of breath, left knee surgery x 2 months ago TECHNIQUE/CONTRAST: CTA scan of the thorax is performed with IV Contrast, patient injected with 90 cc mL of Isovue 370, p ulmonary embolism protocol. MIP images are created and reviewed these are created on a separate work station.. FINDINGS: Pulmonary Artery: There is no evidence for a filling defect within the pulmonary vasculature to sugge st acute pulmonary embolism. The pulmonary artery is of normal size. Lungs/Pleura: Mild intralobular septal thickening. No evidence of focal consolidation, pleural effusi on or pneumothorax. Airway: Large airways are patent. Heart: Heart is mildly enlarged for size. Is mitral valve annular cusp patient's. Post atrial appenda ge occlusion device changes. Vasculature: Mild atherosclerotic calcifications are present throughout the aorta and its branches. Mediastinum: No gross evidence of adenopathy. Musculoskeletal: No acute osseous abnormalities, sternotomy wires are present. Mild multilevel disc d egeneration changes throughout the spine. Soft Tissues: Unremarkable. Lower neck: No significant findings. Upper Abdomen: No significant findings. IMPRESSION: 1. No evidence of pulmonary embolism. 2. Mild cardiomegaly with mild intralobular septal thickening correlate with serum BNP.
== END | disposition home or self-care (01) ==
LOC: RADCTMAIN 16:31
PROVIDERS: ATTEND Internal Medicine
DX: I51.7 Cardiomegaly (principal); J98.4 Other disorders of lung; R06.02 Shortness of breath
CPT/HCPCS: 71275; Q9967

== ENCOUNTER → 2023-03-20 | Outpatient (CLI) | payer MEDICARE ==
--- NOTE | 2023-03-21 08:49 | MM ---
Reason for Exam: Screening (asymptomatic). Last mammogram was performed 1 year(s) and 7 month(s) ago. Patient History: Menarche at age 18. First Full-Term at age 28. Right ovary removed at age 52. Postmenopausal. Sister had breast cancer, age 48. Risk Values: Damaris 5 year model risk: 3.0%. NCI Lifetime model risk: 11.0%. Prior Study Comparison: 08/31/2011 Bilateral Screening Mammogram, [facility]. 11/30/2017 Bilateral Screening Mammogram, [facility]. 09/09/2021 Bilateral Screening Mammogram, [facility]. Tissue Density: There are scattered fibroglandular densities. Findings: Analyzed By CAD. There is no suspicious group of microcalcifications or new suspicious mass. Overall Assessment: Negative, BI-RAD 1 Management: Screening Mammogram of both breasts in [address] [facility] will attempt to contact patient to return for supplemental views and ultrasound if indicated. Patient should continue monthly self-breast exams. A clinical breast exam by your physician is recommended on an annual basis. This exam should not preclude additional follow-up of suspicious palpable abnormalities. Note on Damaris scores and lifetime risk: 1. A Damaris score greater than 3% is considered moderate risk. If this is the case, consider specialist referral to assess eligibility for a risk reducing agent. 2. If overall lifetime risk for the development of breast cancer is 20% or higher, the patient may qualify for future screening with alternating mammogram and breast MRI. Electronically signed and approved by: Alfredito Marie DO
== END | disposition home or self-care (01) ==
LOC: RADMAMWWP 07:38
PROVIDERS: ATTEND Obstetrics & Gynecology
DX: Z12.31 Encounter for screening mammogram for malignant neoplasm of breast (principal); Z78.0 Asymptomatic menopausal state; Z80.3 Family history of malignant neoplasm of breast
CPT/HCPCS: 77067

== ENCOUNTER → 2024-03-04 | Outpatient (CLI) | payer MEDICARE ==
[2024-03-04 15:35] LABS: Basophils % (A) 1.3 %; Eosinophils # (A) 0.37 X 10*3/uL (0.04-0.35); Eosinophils % (A) 4.9 %; HCT 38.2 % (37.2-46.3); HGB 12.7 g/dL (12.0-15.0); Lymphocytes # (A) 1.94 X 10*3/uL (0.90-5.00); Lymphocytes % (A) 25.9 %; MCH 30.1 pg (27.0-32.0); MCHC 33.2 g/dL (32.0-37.0); MCV 90.5 FL (80.0-97.0); Mean Platelet Volume 9.9 FL (9.5-12.2); Monocytes # (A) 0.66 X 10*3/uL (0.20-1.00); Monocytes % (A) 8.8 %; NRBC Per 100 WBC 0 X 10*3/uL (0.00-0.01); Neutrophils # (A) 4.38 X 10*3/uL (1.80-7.70); Neutrophils % (A) 58.7 %; Platelet Count 329 X 10*3/uL (140-440); RBC 4.22 X 10*6/uL (4.10-5.20); RDW 12.9 % (11.5-14.5); WBC 7.48 X 10*3/uL (4.50-10.00)
[2024-03-04 15:56] LABS: Rheumatoid Factor, Qnt <15 IU/mL (0-15); Uric Acid 5.9 mg/dL (2.9-7.7)
[2024-03-04 16:41] LABS: Erythrocyte Sedimentation Rate 12 mm/Hr (0-30)
[2024-03-04 21:58] LABS: Cyclic Citrull Pep IgG Unit <1.5 U/mL (<=3.9); Cyclic Citrullinated Pep IgG Negative
== END | disposition home or self-care (01) ==
LOC: LABWHC1 08:28
PROVIDERS: ATTEND Orthopaedic Surgery Foot and Ankle Surgery
DX: M67.88 Other specified disorders of synovium and tendon, other site (principal); M76.70 Peroneal tendinitis, unspecified leg
CPT/HCPCS: 36415; 84550; 85025; 85652; 86038; 86140; 86200; 86431

== ENCOUNTER → 2024-05-23 | Outpatient (CLI) | payer MEDICARE ==
--- NOTE | 2024-05-26 12:42 | MM ---
Reason for Exam: Screening (asymptomatic). Last mammogram was performed 1 year(s) and 2 month(s) ago. Patient History: Menarche at age 18. First Full-Term at age 28. Right ovary removed at age 52. Postmenopausal. Sister had breast cancer, age 48. Risk Values: Damaris 5 year model risk: 3.0%. NCI Lifetime model risk: 10.6%. Prior Study Comparison: 11/30/2017 Bilateral Screening Mammogram, [facility]. 09/09/2021 Bilateral Screening Mammogram, [facility]. 03/20/2023 Bilateral MG screening mammo w CAD, [facility]. Tissue Density: There are scattered areas of fibroglandular density. Findings: Analyzed By CAD. Right breast: There is no suspicious group of microcalcifications or new suspicious mass. Left breast: There is no suspicious group of microcalcifications or new suspicious mass. Overall Assessment: Negative, BI-RAD 1 Management: Screening Mammogram of both breasts in [address] [facility] will attempt to contact patient to return for supplemental views and ultrasound if indicated. Patient should continue monthly self-breast exams. A clinical breast exam by your physician is recommended on an annual basis. This exam should not preclude additional follow-up of suspicious palpable abnormalities. Note on Damaris scores and lifetime risk: 1. A Damaris score greater than 3% is considered moderate risk. If this is the case, consider specialist referral to assess eligibility for a risk reducing agent. 2. If overall lifetime risk for the development of breast cancer is 20% or higher, the patient may qualify for future screening with alternating mammogram and breast MRI. [facility], , 05/26/2024 12:39 PM. Electronically signed and approved by: Alfredito Marie DO
== END | disposition home or self-care (01) ==
LOC: RADMAMWWP 08:24
PROVIDERS: ATTEND Family Medicine
DX: Z12.31 Encounter for screening mammogram for malignant neoplasm of breast (principal); Z78.0 Asymptomatic menopausal state; Z80.3 Family history of malignant neoplasm of breast; Z90.721 Acquired absence of ovaries, unilateral; R92.323 Mammographic fibroglandular density, bilateral breasts
CPT/HCPCS: 77063; 77067

== ENCOUNTER → 2024-05-29 | Outpatient (CLI) | payer MEDICARE ==
--- NOTE | 2024-05-29 10:37 | XR ---
EXAMINATION TYPE: XR chest 2V DATE OF EXAM: 05/29/2024 8:57 AM COMPARISON: Chest radiographs from 04/24/2022 CLINICAL INDICATION: Female, 68 years old with history of R05.9 COUGH, UNSPECIFIED; [facility] TECHNIQUE: XR chest 2V Frontal and lateral views of the chest. FINDINGS: Lungs/Pleura: There is no evidence of pleural effusion, focal consolidation, or pneumothorax. Pulmonary vascularity: Unremarkable. Heart/mediastinum: Cardiomediastinal silhouette is unremarkable. Left atrial appendage occlusion yenni ce is present. Musculoskeletal: No acute osseous pathology. IMPRESSION: No acute cardiopulmonary disease/process. [facility], , 05/29/2024 10:34 AM
== END | disposition home or self-care (01) ==
LOC: RADXRMAIN 08:39
PROVIDERS: ATTEND Family Medicine
DX: R05.9 Cough, unspecified (principal)
CPT/HCPCS: 71046